=== PATIENT | female | born 1960 | race Caucasian/White ===

== ENCOUNTER → 2022-08-21 15:59 | Outpatient (BNVA) | payer BC, SELFPAY | PROVIDERS: PCP Internal Medicine; Visit Provider Nurse Practitioner Family | DX: Z13.89 Encounter for screening for other disorder (principal) ==

== ENCOUNTER → 2022-09-12 11:07 | Outpatient (BNVA) | payer BC, SELFPAY | PROVIDERS: PCP Internal Medicine; Visit Provider Nurse Practitioner Family ==

== ENCOUNTER 2022-10-05 13:02 | Outpatient (REF) | payer BC, SELFPAY ==
--- NOTE | ~2022-10-05 | MR_ITS ---
EXAMINATION: MR LUMBAR SPINE WITHOUT CONTRAST CLINICAL INFORMATION: Low back pain. COMPARISON: Abdominal CT from 07/12/2015. TECHNIQUE: Multiplanar, multisequence imaging was obtained. FINDINGS: VERTEBRAL BODIES AND PARASPINAL STRUCTURES: There is a ffuv-tl-gvbroaoa leftward curvature of the spine centered at the L1-L2 level with mild posterior endplate edema. A grade 1/2 anterolisthesis at the L4-L5 level with fdkf-ni-figgqfgp disc space narrowing is similar when compared to the 06/2015 CT study. No compression fractures identified. Mild left lateral endplate edema noted at the L4-L5 and L5-S1 levels. Additional very mild reactive marrow edema in the posterior elements on the left side at both levels. There is mild edema in the right L2-L3 articular processes which may be stress related in etiology. The paraspinal soft tissues are unremarkable. CONUS MEDULLARIS AND CAUDA EQUINE: The distal cord, conus tip, and cauda equina nerve roots appear normal. SPINAL LEVELS: L1-L2: Mild retrosubluxation and disc bulge with mild facet arthropathy. No central canal stenosis. Bulging disc and osseous spurring results in significant right foraminal encroachment with bulging disc impressing upon the extraforaminal right L1 nerve root. L2-L3: Broad-based disc bulge and hypertrophic facet arthropathy with thickening of the ligamentum flavum. No significant central canal stenosis. Lateralized bulging disc and facet spurring results in significant right foraminal encroachment. Edema in the right articular processes. L3-L4: Disc bulge and gnfsobzo-gw-ailluh facet arthropathy without significant central canal stenosis. Mild right foraminal narrowing. L4-L5: Anterior subluxation and loss of disc height with advanced facet arthropathy resulting in high-grade central canal stenosis and thecal sac compression. Mild bilateral foraminal narrowing. Suspected bilateral L4 pars defects. L5-S1: Mild endplate spurring. No focal disc protrusion. Severe facet arthropathy without central canal stenosis or foraminal narrowing. MR/MR lumbar spine wo con IMPRESSION: 1. Dpku-fh-hbmlxdlq leftward lumbar spinal curvature with multilevel spondylitic changes. No compression fractures. 2. Severe right foraminal narrowing at the L1-L2 level with bulging disc impressing upon the extraforaminal right L1 nerve root. 3. Severe right foraminal encroachment at the L2-L3 level with reactive marrow edema in the right articular processes. 4. Grade 1/2 anterolisthesis at L4-L5 with advanced facet arthropathy and high-grade central canal stenosis. Suspected chronic bilateral L4 pars defects. 5. Severe facet arthropathy without foraminal encroachment at the L5-S1 level.
== END 2022-10-05 13:03 | disposition home or self-care (01) ==
LOC: HO.MRI 13:02
PROVIDERS: PCP Internal Medicine; Visit Provider Nurse Practitioner Family
DX: M54.50 Low back pain, unspecified (principal); G57.11 Meralgia paresthetica, right lower limb; R29.2 Abnormal reflex
CPT/HCPCS: 72148

== ENCOUNTER 2022-10-25 08:39 | Outpatient (REF) | payer BC, SELFPAY | END 2022-10-25 08:40 | disposition home or self-care (01) | LOC: CF 08:39 | PROVIDERS: Visit Provider Internal Medicine | DX: G57.11 Meralgia paresthetica, right lower limb (principal) | CPT/HCPCS: 64450; J1020 ==

== ENCOUNTER 2022-10-27 10:40 | Outpatient (REF) | payer BC, SELFPAY ==
--- NOTE | ~2022-10-27 | XR_ITS ---
EXAMINATION: XR BILATERAL HIPS WITH AP PELVIS CLINICAL INFORMATION: Reason for Exam M48.061 - Spinal stenosis, lumbar region without neurogenic claudication COMPARISON: None TECHNIQUE: Two views of each hip. One view of the pelvis. FINDINGS: No acute fracture or dislocation. Hip and sacroiliac joint spaces are maintained. Moderate degenerative changes of the pubic symphysis. Soft tissues are unremarkable. XR/XR hip BI w PEL1V IMPRESSION: 1. No acute osseous abnormality. 2. Moderate degenerative changes of the pubic symphysis.
== END 2022-10-27 10:41 | disposition home or self-care (01) ==
LOC: HO.XRAY 10:40
PROVIDERS: PCP Internal Medicine; Visit Provider Nurse Practitioner Family
DX: M06.9 Rheumatoid arthritis, unspecified (principal); M25.551 Pain in right hip; M47.26 Other spondylosis with radiculopathy, lumbar region; M48.061 Spinal stenosis, lumbar region without neurogenic claudication; M62.838 Other muscle spasm; M43.16 Spondylolisthesis, lumbar region
CPT/HCPCS: 73521

== ENCOUNTER 2024-04-22 11:08 | Outpatient (AMB) | payer MEDICARE, SELFPAY ==
[2024-04-22 11:20] VITALS: BP 120/72; PULSE 73; O2SAT 99; BMI 35.8
--- NOTE | 2024-04-22 11:20 | A.OFFVIS_ITS ---
Vital Signs 04/22/24 11:20 Height 5 ft 0.5 in Weight 186 lb 4.65 oz BMI 35.8 BP 120/72 Blood Pressure Location Lt brachial Position Sitting Pulse 73 Pulse Source Pulse Oximeter Pulse Oximetry (%) 99 Oxygen Delivery Method Room Air Intake Visit Reasons: arthritis Intake Note: Patient presents today for follow up on rheumatoid arthritis. She states both hands are hurting, mainly her right one. Allergies No Known Allergies Allergy (Verified 04/22/24 11:29) HPI HPI arthritis: Details: She has swelling and stiffness in her hands. No recent infections. She is taking methotrexate 30 mg once weekly and folic acid 1 mg daily. No side effects. PENDING SALE TO [facility] Medical History (Updated 04/23/24 @ 21:35 by Konstantin Chin MD) Restless leg syndrome Neural foraminal stenosis of lumbar spine Lumbar spondylosis Asthma HLD (hyperlipidemia) HTN (hypertension) Surgical History History of section History of knee replacement History of toe surgery Hx of cataract surgery Hx of rotator cuff surgery Family History Father Diabetes Hypertension Mother Diabetes Hypertension Disorder of circulatory system Brother Disorder of circulatory system Social History Alcohol intake: current Alcohol intake frequency: a few times a month Patient Tobacco Use Status: Former Tobacco user Substance Use Type: Marijuana Review of Systems Const All systems reviewed & are unremarkable except as noted in HPI and below Physical Exam Vital Signs: Last Vital Signs Pulse 73 04/22/24 11:20 BP 120/72 04/22/24 11:20 Pulse Ox 99 04/22/24 11:20 Oxygen Delivery Method Room Air 04/22/24 11:20 BMI result Body Mass Index 35.8 Const Other: General: Comfortable CVS: RRR Respiratory: clear to auscultation bilaterally. Good respiratory effort Skin: No lesions seen MSK: Tender to palpate bilateral MCPs and PIP. Volar subluxation bilateral MCPs. She has synovitis of right 2nd and 3rd MCP and left 2nd MCP. Tender bilateral PIP knees. Tender bilateral wrists. Good range of motion of upper extremities. Good range of motion of lower extremities. Tender bilateral MTPs. Assessment & Plan Assessment & Plan (1) Rheumatoid arthritis: Comment: Seronegative. Deforming. Methotrexate started 12/2021. She is currently on methotrexate 30 mg once weekly without control liver disease. She is at increased risk of side effects on high dose methotrexate. I recommended to decrease methotrexate dose of 25 mg once weekly. We discussed add on DMARD therapy with hydroxychloroquine. Discussed side effects, benefits and drug monitoring. After lab results are back, I will send prescription for hydroxychloroquine 400 mg daily. Code(s): M06.9 - Rheumatoid arthritis, unspecified Category: Medical Qualifiers: Rheumatoid arthritis location: multiple sites Rheumatoid factor presence: without rheumatoid factor Qualified Code(s): M06.09 - Rheumatoid arthritis without rheumatoid factor, multiple sites Plan: Labs for drug monitoring and high-risk medication ordered Decrease methotrexate to 25 mg once weekly Continue folic acid 1 mg daily After lab results are back, we will send prescription for hydroxychloroquine 400 mg daily Prednisone course prescribed Return to clinic in 3 months Orders: Orders Erythrocyte Sedimentation Rate 04/22/24 M06.9 - Rheumatoid arthritis, unspecified C Reactive Protein 04/22/24 M06.9 - Rheumatoid arthritis, unspecified Complete Blood Count Auto Diff 04/22/24 Z79.60 - terminal makeup operator (current) use of un specified immunomodulators and immunosuppressants Creatinine 04/22/24 Z79.60 - terminal makeup operator (current) use of unspecified immunomodulators and immunosuppressants Hepatitis B,C Profile 04/22/24 M06.9 - Rheumatoid arthritis, unspecified Alanine Aminotransferase 04/22/24 Z79.60 - residential (current) use of unspecified immunomodulators and immunosuppressants Aspartate Amino Transferase 04/22/24 Z79.60 - terminal makeup operator (current) use of unspecified immunomodulators and immunosuppressants T Spot TB 04/22/24 M06.9 - Rheumatoid arthritis, unspecified Medications: New prednisone Take 4 tablets daily 5 days, 3 tablets daily 5 days, 2 tablets daily 5 days, 1 tablet daily 5 days then stop. Take prednisone with food 5 mg PO DIRECTED 50 tabs 0RF folic acid 1 mg PO DAILY 90 tabs 3RF Coding Level of Care Code Est Pt Level 4 (86358) Complex EM visit Add On G2211 Diagnoses Rheumatoid arthritis of multiple sites with negative rheumatoid factor M06.09 Rheumatoid arthritis location: multiple sites Rheumatoid factor presence: without rheumatoid factor
== END 2024-04-22 12:27 | disposition home or self-care (01) ==
PROVIDERS: PCP Internal Medicine; Visit Provider Internal Medicine Rheumatology
DX: M06.09 Rheumatoid arthritis without rheumatoid factor, multiple sites (principal)
CPT/HCPCS: 99214; G2211

== ENCOUNTER 2024-04-22 11:08 | Outpatient (REF) | payer MEDICARE, SELFPAY ==
--- OUTSIDE RECORDS SUMMARY | 2024-04-22 12:52 | XMS_ITS ---
Author Name [facility] Organization Unknown History of Medication Use Medication Directions Dispensed Refills Start Date End Date Stat iohexol (OMNIPAQUE) 350 mg/mL injection 100 mL 100 mL, Intravenous, Once in imaging, contrast, Starting on 04/14/24 at 0937, For 1 dose, Radiology Appointment 04/17/2024 04/22/99 99 completed venlafaxine (EFFEXOR-XR) 75 MG 24 hr capsule Take 1 capsule (75 mg total) by mouth daily. 03/29/2024 04/22/99 99 active dicyclomine (BENTYL) 20 MG tablet Take 0.5 tablets (10 mg total) by mouth 4 (four) times a day. 03/29/2024 04/22/99 99 active phentermine 37.5 MG capsule Take 1 capsule (37.5 mg total) by mouth every morning. 03/29/2024 04/22/99 99 active hydrocortisone (ANUSOL-HC) 2.5 % rectal cream Insert into the rectum 3 (three) times a day as needed for hemorrhoids. 03/29/2024 04/22/99 99 active lisinopril-hydroCHLOROt hiazide (PRINZIDE,ZESTORETIC) 20-12.5 MG per tablet Take 1 tablet by mouth daily. 01/28/2024 active PEG 1617-NBv-SbNn-NaSulf-Mg Sul (Suflave) 178.7 g Recon Soln Take 1 Box by mouth once. Take as instructed. 01/14/2024 active rOPINIRole (REQUIP) 4 MG tablet Take 1 tablet (4 mg total) by mouth nightly. 01/11/2024 active gabapentin (NEURONTIN) 100 MG capsule Take 1 cap at 6pm and increase as needed and tolerated. 10/24/2023 active gabapentin (NEURONTIN) 300 MG capsule Take 1 capsule (300 mg total) by mouth nightly. 09/26/2023 active gabapentin (NEURONTIN) 100 MG capsule Take 3 capsules (300 mg total) by mouth every evening. 08/08/2023 active Botox 100 units Recon Soln injection Every 5 months 01/27/2023 active Methotrexate 10 MG/0.4ML Solution Prefilled Syringe 01/27/2023 active rOPINIRole (REQUIP) 2 MG tablet 01/27/2023 active doxycycline (VIBRA-TABS) 100 MG tablet 01/27/2023 active lisinopril-hydroCHLOROt hiazide (PRINZIDE,ZESTORETIC) 20-12.5 MG per tablet nightly. 11/12/2022 act edil oxyCODONE (ROXICODONE) 5 MG immediate release tablet Take 1 tablet (5 mg total) by mouth 4 times daily (every 6 hours) as needed for moderate pain. Max Daily Amount: 20 mg 05/06/2023 active rOPINIRole (REQUIP) 4 MG tablet nightly. 11/12/2022 active minocycline (MINOCIN) 100 MG capsule Take 1 capsule (100 mg total) by mouth 2 (two) times a day. Take 1 capsule by mouth 2 (two) times a day for 10 days until gone. 05/19/2023 active Ozempic, 2 MG/DOSE, 8 MG/3ML prefilled pen injection 11/12/2022 aborted oxyCODONE (OXY-IR) 5 MG capsule TAKE 1 CAPSULE BY MOUTH EVERY 6 HOURS NEEDED FOR PAIN 01/27/2023 active rOPINIRole (REQUIP) 4 MG tablet nightly. 11/12/2022 active minocycline (MINOCIN) 100 MG capsule Take 1 capsule (100 mg total) by mouth 2 (two) times a day. Take 1 capsule by mouth 2 (two) times a day for 10 days until gone. 05/19/2023 active terbinafine (LamiSIL) 250 MG tablet Take 1 tablet (250 mg total) by mouth daily. 06/30/2023 active senna-docusate (SENNA-S) 8.6-50 MG Take 2 tablets by mouth 2 (two) times a day. 05/06/2023 active aspirin (Aspirin 81) 81 MG chewable tablet Chew 1 tablet (81 mg total) nightly. Not prescribed by an MD Do not start before April 23, 2023. 05/06/2023 active methylPREDNISolone (MEDROL DOSEPAK) 4 MG tablet 01/27/2023 active Wegovy 2.4 MG/0.75ML Solution Auto-injector 11/12/2022 ac tive tirzepatide (MOUNJARO) 2.5 mg/0.5 mL pen-injector Inject 1 pen(s) (2.5 mg total) under the skin once a week. 06/12/2023 aborted METHOTREXATE SODIUM PO 12 mg 04/20/2023 active predniSONE (DELTASONE) 5 MG tablet 06/30/2023 aborted folic acid (FOLVITE) 1 MG tablet 11/12/2022 active methotrexate 2.5 MG tablet 11/12/2022 active methocarbamol (ROBAXIN) 750 MG tablet 01/27/2023 active aspirin (Aspirin 81) 81 MG chewable tablet nightly. Not prescribed by an MD 11/12/2022 active venlafaxine (EFFEXOR-XR) 75 MG 24 hr capsule nightly. 11/12/2022 active cephALEXin (KEFLEX) 250 mg capsule nightly. 01/27/2023 active Problems Problem Status Onset Date Problem Type Date of Resolution Source Sleep apnea active ProblemAct [facility] Family history of colonic polyps active 2024-01-11 ProblemAct [facility] BMI 39.0-39.9,adult active 2022-11-10 ProblemAct [facility] Spondylolisthesis, grade 1 active 2022-12-19 ProblemAct [facility] Severe obesity active 2024-01-10 ProblemAct [facility] History of colon polyps active 2024-01-11 ProblemAct [facility] Generalized abdominal pain active EncounterDiagnosisAct [facility] Postoperative seroma involving nervous system after nervous system procedure active 2023-05-17 ProblemAct [facility] BMI 40.0-44.9, adult active 2023-05-04 ProblemAct [facility] Spinal stenosis of lumbar region with neurogenic claudication active 2022-11-10 ProblemAct [facility] Chronic bilateral low back pain with right-sided sciatica active 2022-11-10 ProblemAct [facility] Restless leg syndrome active ProblemAct [facility] BMI 38.0-38.9,adult active 2022-12-19 ProblemAct [facility] Immunizations Vaccine Date Source Lot Number Status Tdap [id number] completed Influenza, Quadrivalent (FLU CELVAX) MDCK, Preservative Free IM 01/05/2023 [facility] [id number] completed
--- OUTSIDE RECORDS SUMMARY | 2024-04-22 12:52 | XMS_ITS | Continuity of Care Document ---
Author Organization [facility] vices Address [address] [place] [address] Phone Care Team Providers Care Client Experience Specialist Name Role Phone Shantel Blanton RD Unavailable [...] Diagnoses Date Provider Providers Copied on Encounter [facility], [address] [place] [address], [facility] [place], tel:[phone] [facility] Adult Medicine Prep for Bariatric Surgery (chief complaint) Body mass index (BMI) 40.0-44.9, adultMorbid (severe) obesity due to excess caloriesDietary counseling and surveillanceExercise counseling 3 Osbaldovar Shantel. [address] [place] [address], [id number] [address] [place] [address], [facility] [place], [place]. tel:[phone] [facility], [address] [place] [address], tel:[phone] [facility] Adult Medicine Prep for Bariatric Surgery (chief complaint) Dietary counseling and surveillanceExercise counselingObesityBod y mass index [BMI] 38.0-38.9, adult 3 Pevar Shantel. [address] [facility] [id number] [address], [place], [facility] [place], [place]. tel:[phone] Family History Family Member Type Diagnosis Age At Onset No Information Payers Payer name Insurance type Covered democrat ID Authorlena vega(s) BCBS Elia Mari DSNP [facility] [id number] Social History Type Description Quantity Date [...] low carb w rapsD: last night had belarusian food, beef low mein craves sugar often, large portions recently at mealsFoods high in added sugarscandy bars Drinking inadequate water Joelle Donuts, candy Normally gets sweets and snacks on the road when hungry or gets high sugar snacks from grocery store when hungry Patient Care Teams Name Effective Dates (start - stop) Status Members No Information
--- OUTSIDE RECORDS SUMMARY | 2024-04-22 12:52 | XMS_ITS | Continuity of Care Document ---
Author Organization [facility] Address [address] [facility] [address] [place] [phone] Phone Care Team Providers Care Roll Builder Name Role Phone Dariusz Baptiste MD Unavailable Unavailable Procedures Procedure Date Office/Oupt E&M New Pt 30 Mins Duplex Scan-extrem Veins; Comp 24 Advance Directives Directive Yes / No Effective Date File Name No Information Encounters Encounter Description Practice Location Reason(s) For Visit Diagnoses Date Provider Providers Copied on Encounter Office/Oupt E&M New Pt 30 Mins [facility], [address] [place] [address], [id number], tel:[phone] [place] [facility] [place] Pain in right lower legPain in left lower legLocalized edemaVenous insufficiency (chronic) (peripheral)Essent ial (primary) hypertensionDisord er of pigmentation, unspecified 4 Oliva Arzola. [address] [place], [address], [place]. [phone] Referring Provider: Yakov Holm MD, [address] [place] [address], [address]. tel:[phone] [facility], [address] [place] [address], [id number], tel:[phone] [facility] [place] Chronic venous hypertension (idiopathic) with other complications of bilateral lower extremity Bev CHRISTOPHER Walter. [address] [facility], [address], [place], [place], [id number] , [place]. tel: [phone] Referring Provider: Yakov Holm MD, [address] [place], [address]. tel:[phone] Family History Family Member Type Diagnosis Age At Onset No Information Payers Payer name Insurance type Covered constitution party ID Carolina Rodrigez (s) [place] BL [id number] Social History Type Description Quantity Date Captured [...] Information Instructions Date Instruction Additional Infor mation Diet education Related to Body mass index (BMI) 40.0-44.9, adult Giving Encouragement to exercise Related to Body mass index (BMI) 40.0-44.9, adult Lifestyle education Related to B brandon mass index (BMI) 40.0-44.9, adult Patient education booklet given Related to Pain in right lower leg Assessments Type Assessment Date No Information Patient Care Teams Name Effective Dates (start - stop) Status Members No Information
[2024-04-22 12:59] LABS: MANUAL DIFF FLAG NO
[2024-04-22 13:48] LABS: Basophils Percent Auto 0.6 % (0-2); Eosinophils Absolute Auto 0.2 X10*3/uL (0.0-0.4); Eosinophils Percent Auto 2.7 % (0-4); Hematocrit 39.6 % (37.0-47.0); Imm Gran Abs Auto 0.03 X10*3/uL (0.00-0.03); Imm Gran Pct Auto 0.5 % (0.0-0.4); Lymphocytes Absolute Auto 1.9 X10*3/uL (1.2-4.9); Lymphocytes Percent Auto 29.8 % (20-40); Mean Corpuscular HGB Conc 32.8 g/dl (31.0-35.0); Mean Corpuscular Hemoglobin 31.6 pg (27.0-33.0); Mean Corpuscular Volume 96.1 fL (80.0-98.0); Mean Platelet Volume 10.5 fL (9.4-12.3); Monocytes Absolute Auto 0.4 X10*3/uL (0.1-1.2); Monocytes Percent Auto 6.1 % (2-11); Neutrophils Absolute Auto 3.8 x10*3/uL (2.0-8.3); Neutrophils Percent Auto 60.3 % (45-73); Platelet Count 231 X10*3/uL (160-400); Red Blood Count 4.12 X10*6/uL (4.20-5.50); Red Cell Distribution Width 13.7 % (11.0-16.0); White Blood Count 6.2 X10*3/uL (4.8-10.8)
[2024-04-22 14:07] LABS: Alanine Aminotransferase 27 U/L (0-31); Aspartate Amino Transferase 29 U/L (5-31); C Reactive Protein 0.49 mg/dL (< or = 0.50); Estimated Glomerular Filt Rate > 60
[2024-04-22 14:28] LABS: Erythrocyte Sedimentation Rate 6 MM/HR (0-20)
[2024-04-23 04:10] LABS: HBc Num1 0.22 S/CO (0.00-0.79); HBsAGNum1 0.35 S/CO (0.00-0.99); Hepatitis B Core Antibody Nonreactive (Nonreactive); Hepatitis B Surface Antigen Negative (Negative); ~HepC Num1 0.05 S/CO (0.00-0.79); ~Hepatitis B Surface Antibody NONREACTIVE (Nonreactive); ~Hepatitis C Antibody Nonreactive (Nonreactive)
[2024-04-24 18:24] LABS: TS Negative Control Passed; TS Panel A 0; TS Panel B 0; TS Positive Control Passed; TSpotTB Negative (Negative)
== END 2024-04-22 11:09 | disposition home or self-care (01) ==
LOC: HO.LAB 11:08
PROVIDERS: Visit Provider Internal Medicine Rheumatology
DX: M06.09 Rheumatoid arthritis without rheumatoid factor, multiple sites (principal); Z79.60 Long term (current) use of unspecified immunomodulators and immunosuppressants
CPT/HCPCS: 36415; 82565; 84450; 84460; 85025; 85652; 86140; 86481; 86704; 86706; 86803; 87340; 99212

== ENCOUNTER → 2024-05-14 15:12 | Outpatient (BNVA) | payer MEDICARE, SELFPAY | DX: Z13.89 Encounter for screening for other disorder (principal) ==

== ENCOUNTER → 2024-05-21 13:25 | Outpatient (BNVA) | payer MEDICARE, SELFPAY | PROVIDERS: Visit Provider Internal Medicine Rheumatology ==

== ENCOUNTER 2024-06-26 14:34 | Outpatient (AMB) | payer MEDICARE, SELFPAY ==
--- NOTE | 2024-06-26 14:38 | MHC.OFFVIS ---
Vital Signs 06/26/24 14:39 Height 5 ft Weight 193 lb 5.526 oz BMI 37.8 BP 110/72 Blood Pressure Location Rt brachial Position Standing Pulse 83 Pulse Source Pulse Oximeter Pulse Oximetry (%) 98 Oxygen Delivery Method Room Air Intake Visit Reasons: follow up Intake Note: Patient presents today for follow up on rheumatoid arthritis Allergies No Known Allergies Allergy (Verified 06/26/24 14:39) HPI HPI follow up: Details: He started hydroxychloroquine 2 months ago. She gained 10 lb on prednisone course. She has had relief on prednisone but is not keen on receiving more prednisone. She prefers subcutaneous injection over p.o. methotrexate. She has been wearing wrist braces at night but continues to have paresthesia in her hands. [facility] Medical History Restless leg syndrome Neural foraminal stenosis of lumbar spine Lumbar spondylosis Asthma HLD (hyperlipidemia) HTN (hypertension) Surgical History History of section History of toe surgery Hx of cataract surgery History of knee replacement Hx of rotator cuff surgery Family History Father Diabetes Hypertension Mother Diabetes Hypertension Disorder of circulatory system Brother Disorder of circulatory system Social History Alcohol intake: current Alcohol intake frequency: a few times a month Patient Tobacco Use Status: Former Tobacco user Substance Use Type: Marijuana Review of Systems Const All systems reviewed & are unremarkable except as noted in HPI and below Physical Exam Vital Signs: Last Vital Signs Pulse 83 06/26/24 14:39 BP 110/72 06/26/24 14:39 Pulse Ox 98 06/26/24 14:39 Oxygen Delivery Method Room Air 06/26/24 14:39 BMI result Body Mass Index 37.8 Const Other: General: Comfortable CVS: RRR Respiratory: clear to auscultation bilaterally. Good respiratory effort Skin: No lesions seen MSK: Tender to palpate bilateral MCPs and PIPs. Volar subluxation bilateral MCPs. She has synovitis of bilateral 2nd and 3rd MCPs. Tender bilateral PIPs. Tender bilateral wrists. Good range of motion of upper extremities. Good range of motion of lower extremities. Tender bilateral MTPs. Assessment & Plan Assessment & Plan (1) Rheumatoid arthritis: Comment: She continues to have synovitis with addition of hydroxychloroquine. She has been on hydroxychloroquine for at least a month. She needs more time for full effectiveness. Rheumatology history: Seronegative. Deforming. Methotrexate started 12/2021. Dr. Ross increase dose to 30 mg once weekly without control of rheumatoid arthritis. 03/2024. HCQ 400 mg qd 03/2024-. Code(s): M06.9 - Rheumatoid arthritis, unspecified Category: Medical Qualifiers: Rheumatoid arthritis location: multiple sites Rheumatoid factor presence: without rheumatoid factor Qualified Code(s): M06.09 - Rheumatoid arthritis without rheumatoid factor, multiple sites Plan: Labs for drug monitoring and high-risk medication ordered Continue methotrexate to 25 mg once weekly. It will temporarily be changed from PO to subcutaneous injection as current dosing is not available for PA under cover my meds. I have sent prescription to [facility] to [place] PA for Rasuvo. Continue folic acid 1 mg daily Continue hydroxychloroquine 400 mg daily Patient will need 90 day supply of hydroxychloroquine, folic acid and methotrexate due to travel Continue Tylenol as needed for joint pain She can take Aleve as needed for joint pain. I will be monitoring toxicity from methotrexate closely with regular labs and follow-up. Return to clinic in 3 months Orders: Orders Creatinine Today Z79.60 - intermediate (current) use of unspecified immunomodulators and immunosuppressants Alanine Aminotransferase Today Z79.60 - intermediate (current) use of unspecified immunomodulators and immunosuppressants Aspartate Amino Transferase Today Z79.60 - intermediate (current) use of unspecified immunomodulators and immunosuppressants Erythrocyte Sedimentation Rate Today Z79.899 - Other moth exterminator (current) drug therapy Complete Blood Count Auto Diff Today Z79.60 - long term care administrator (current) use of unspecified immunomodulators and immunosuppressants C Reactive Protein Today Z79.899 - Other senior living (current) drug therapy Medications: New methotrexate (PF) (Rasuvo (PF)) PA needed. 25 mg (0.5 mL) subcut QWEEK 6 mL 0RF 84 days methotrexate sodium Split dose 5 tablets AM and PM once a week 25 mg (10 x 2.5 mg) PO QWEEK 120 tabs 0RF 84 days Changed From methotrexate sodium 25 mg subcut QWEEK 4 mL 2RF To methotrexate sodium 25 mg subcut QWEEK 12 mL 0RF 84 days Refilled hydroxychloroquine 400 mg (2 x 200 mg) PO DAILY 180 tabs 1RF Coding Level of Care Code Est Pt Level 4 (69789) Complex EM visit Add On G2211 Diagnoses Rheumatoid arthritis of multiple sites with negative rheumatoid factor M06.09 Rheumatoid arthritis location: multiple sites Rheumatoid factor presence: without rheumatoid factor
[2024-06-26 14:39] VITALS: BP 110/72; PULSE 83; O2SAT 98; BMI 37.8
--- OUTSIDE RECORDS SUMMARY | 2024-06-26 17:56 | XMS_ITS | Encounter Summary ---
Author Organization [facility] Address [address] [place] [address] Care Team Providers Care Merchandising Stock Associate Name Role Phone Jason Erwin Primary Care Provider [phone] Jason Seth MD Primary Care Provider [phone] Yakov Holm MD Primary Care Provider [phone] Chiqui Pena DO Unavailable [phone] Yakov Holm MD Unavailable [phone] Reason for Visit * Reason Comments Appointment Encounter Details Date Type Department Care Team (Late st Contact Info) Description 04/12/2023 Telephone [facility] [address] [place] [address] Jason Erwin [address] [place], [place] Appointment Social History Tobacco Use Types Packs/Day Years Used Date Smoking Tobacco: Former Cigarettes 6 1985 Smokeless Tobacco: Never Alcohol Use Standard Drinks/Week Comments Yes 0 (1 standard drink = 0.6 oz pur e alcohol) 1-2 times weekly 1-2 glasses AUDIT-C Answer Date Recorded Q1: How often do you have a drink containing alc ohol? 2-4 times a month 04/04/2023 Q2: How many drinks containi ng alcohol do you have on a typical day when you are drinking? 1 or 2 04/04/2023 Q3: How often do you have si x or more drinks on one occasion? Never 04/04/2023 Sex and Gender Information Value Date Recorded Sex Assigned at Female 11/01/2022 11:18 AM EDT Gender Identity Female 11/01/2022 11:18 AM EDT Sexual Orientation Heterosexual (straight) 11/01 11:18 AM EDT documented as of this encounter Miscellaneous Notes * Telephone Encounter - Giovany Deras - 04/12/2023 5:13 PM EST Patient made needed appointment documented in this encounter Plan of Treatment Upcoming Encounters Date Type Department Care Team (Late st Contact Info) Description 07/03/2024 5:00 PM EDT Office Visit [address] [phone] [place] [address] [place] [address] 10/03/2024 1:00 PM EDT Office Visit [address] [phone] Yakov Holm MD [facility] [place], [place] [phone] documented as of this encounter Visit Diagnoses Not on filedocumented in this encounter Care Teams Merchandising Stock Associate Relationship Specialty Start Date End Date Jason Erwin [address] [place] [address] PCP - General Internal Medicine 12/12/22 04/18/23 Jason Seth MD [address] [address] PCP - General 04/19/23 05/31/23 Yakov Holm MD [address] [place] [address] PCP - General Internal Medicine 06/01/23 Yakov Holm MD [address] [place] [address] PCP - [place] Commercial Attributed 06/22/23 11/21/23 Chiqui Pena DO [address] [place] [address] Obstetrics and Gynecology 09/05/23 documented as of this encounter
--- OUTSIDE RECORDS SUMMARY | 2024-06-26 17:56 | XMS_ITS | Encounter Summary ---
Author Organization [facility] Address [address] [place] [address] Care Team Providers Care Lead Warehouse Associate Name Role Phone Yakov Holm MD Primary Care Provider [phone] Chiqui Pena DO Unavailable [phone] Yakov Holm MD Unavailable Encounter Details Date Type Department Care Team (Late st Contact Info) Description 11/14/2023 Scanned Document [facility] [address] [facility] [address] [place] [phone] Clau Zavala APRN [address] [facility] [address] [place] [address] Social History Tobacco Use Types Packs/Day Years [...] more drinks on one occasion? Never 04/04/2023 PHQ-2 Answer Date Recorded PHQ-2 Total Score 0 06/01/2023 Sex and Gender Information Value Date Recorded Sex Assigned at Female 11/01/2022 11:18 AM EDT Gender Identity Female 11/01/2022 11:18 AM EDT Sexual Orientation Heterosexual (straight) 11/01 11:18 AM EDT documented as of this encounter Plan of Treatment Upcoming Encounters Date Type Department Care Team (Late st Contact Info) Description 07/03/2024 5:00 PM EDT Office Visit [facility] [address] [place] [address] Yakov Holm MD [address] [place] [address] 10/03/2024 1:00 PM EDT Office Visit [facility] [address] [place] [phone] Yakov Holm MD [address] [place] [address] documented as of this encounter Visit Diagnoses Not on filedocumented in this encounter Care Teams Lead Warehouse Associate Relationship Specialty [place] [address] [place] [address] PCP - General Internal Medicine 06/01/23 [place] [address] [place] [address] PCP - [place] Commercial Attributed 06/22/23 11/21/23 Chiqui Pena DO [address] [place] [address] Obstetrics and Gynecology 09/05/23 documented as of this encounter
--- OUTSIDE RECORDS SUMMARY | 2024-06-26 17:56 | XMS_ITS | Encounter Summary ---
Author Organization [facility] Address [address] [place] [address] Care Team Providers Care Electronic Installer Name Role Phone Yakov Holm MD Primary Care Provider [phone] Chiqui Pena DO Unavailable [phone] Yakov Holm MD Unavailable [phone] Encounter Details Date Type Department Care Team (Late st Contact Info) Description 11/14/2023 Scanned Document [facility] [address] [facility] [address] [place] [phone] Clau Zavala APRN [address] [facility] [address] [place] [address] Social History Tobacco Use Types Packs/Day Years [...] Description 07/03/2024 5:00 PM EDT Office Visit [facility] [address] [place] [address] Yakov Holm MD [address] [place] [address] 10/03/2024 1:00 PM EDT Office Visit [facility] [address] [place] [phone] Yakov Holm MD [address] [place] [address] documented as of this encounter Visit Diagnoses Not on filedocumented in this encounter Care Teams Electronic Installer Relationship Specialty [place] [address] [place] [address] PCP - General Internal Medicine 06/01/23 [place] [address] [place] [address] PCP - [place] Commercial Attributed 06/22/23 11/21/23 Chiqui Pena DO [address] [place] [address] Obstetrics and Gynecology 09/05/23 documented as of this encounter
--- OUTSIDE RECORDS SUMMARY | 2024-06-26 17:56 | XMS_ITS | Encounter Summary ---
Author Organization [facility] Address [address] [place] [address] Care Team Providers Care Car Dumper Name Role Phone Yakov Holm MD Primary Care Provider [phone] Chiqui Pena DO Unavailable [phone] Yakov Holm MD Unavailable [phone] Encounter Details Date Type Department Care Team (Late st Contact Info) Description 07/10/2023 Scanned Document [facility] [place] [address] [place] [phone] Pulmonary, Scan Social History Tobacco Use Types Packs/Day Years [...] Description 07/03/2024 5:00 PM EDT Office Visit [facility] [address] [place] [phone] [place] [address] [place] [address] 10/03/2024 1:00 PM EDT Office Visit [facility] [address] [place] [address], [place] [phone] Yakov Holm MD [address] [place] [address] documented as of this encounter Visit Diagnoses Not on filedocumented in this encounter Care Teams Car Dumper Relationship Specialty Start Date End Date Yakov Holm MD [address] [place] [address] PCP - General Internal Medicine 06/01/23 Yakov Holm MD [address] [place] [address] PCP - [place] Commercial Attributed 06/22/23 11/21/23 Chiqui Pena DO [address] [place] [address] Obstetrics and Gynecology 09/05/23 documented as of this encounter
--- OUTSIDE RECORDS SUMMARY | 2024-06-26 17:56 | XMS_ITS | Encounter Summary ---
Author Organization [facility] Address [address] [place] [address] Care Team Providers Care Engineering Test Mechanic Name Role Phone Yakov Holm MD Primary Care Provider [phone] Chiqui Pena DO Unavailable [phone] Yakov Holm MD Unavailable Encounter Details Date Type Department Care Team (Late st Contact Info) Description 06/21/2023 Scanned Document [facility] VASCULAR SURG SCAN Vascular Surgery, Scan Social History Tobacco Use Types Packs/Day Years Used Date Smoking Tobacco: Former Cigarettes 1 976 - 1985 Smokeless Tobacco: Never Alcohol Use Standard [...] 5:00 PM EDT Office Visit [facility] [address] [facility] [place] [address] Yakov Holm MD [address] [place] [address] 10/03/2024 1:00 PM EDT Office Visit [facility] [address] [facility] [place] [address] Yakov Holm MD [address] [place] [address] documented as of this encounter Visit Diagnoses Not on filedocumented in this encounter Care Teams Engineering Test Mechanic Relationship Specialty [place] [address] [place] [address] PCP - General Internal Medicine 06/01/23 [place] [address] [place] [address] PCP - [place] Commercial Attributed 06/22/23 11/21/23 Chiqui Pena DO [address] [place] [address] Obstetrics and Gynecology 09/05/23 documented as of this encounter
--- OUTSIDE RECORDS SUMMARY | 2024-06-26 17:56 | XMS_ITS | Encounter Summary ---
Author Organization [facility] Address [address] [place] [address] Care Team Providers Care Cherry Picker Operator Name Role Phone Yakov Holm MD Primary Care Provider [phone] Chiqui Pena DO Unavailable [phone] Yakov Holm MD Unavailable [phone] Encounter Details Date Type Department Care Team (Late st Contact Info) Description 07/04/2023 Scanned Document [facility] PRIMARY CARE SCAN Primary Care, Scan Social History Tobacco Use Types Packs/Day [...] 5:00 PM EDT Office Visit [facility] [address] [place] [address] Yakov Holm MD [address] [place] [address] 10/03/2024 1:00 PM EDT Office Visit [facility] [address] [place] [address] Yakov Holm MD [address] [place] [address] documented as of this encounter Visit Diagnoses Not on filedocumented in this encounter Care Teams Cherry Picker Operator Relationship Specialty [place] [address] [place] [address] PCP - General Internal Medicine 06/01/23 [place] [address] [place] [address] PCP - [place] Commercial Attributed 06/22/23 11/21/23 Chiqui Pena DO [address] [place] [address] Obstetrics and Gynecology 09/05/23 documented as of this encounter
--- OUTSIDE RECORDS SUMMARY | 2024-06-26 17:56 | XMS_ITS | Encounter Summary ---
Author Organization [facility] Address [address] [place] [address] Care Team Providers Care Telemarketer Name Role Phone Yakov Holm MD Primary Care Provider [phone] Chiqui Pena DO Unavailable [phone] Encounter Details Date Type Department Care Team (Late st Contact Info) Description 2023 Scanned Document [address] [phone] Yakov Holm MD [address] [place] [address] Social History Tobacco Use Types Packs/Day Years [...] Description 07/03/2024 5:00 PM EDT Office Visit [facility] [address] [place] [phone] [place] [address] [place] [address] 10/03/2024 1:00 PM EDT Office Visit [address] [phone] Yakov Holm MD [address] [place] [address] documented as of this encounter Visit Diagnoses Not on filedocumented in this encounter Care Teams Telemarketer Relationship Specialty Start Date End Date Yakov Holm MD [address] [place] [address] PCP - General Internal Medicine 06/01/23 Chiqui Pena DO [address] [place] [address] Obstetrics and Gynecology 09/05/23 documented as of this encounter
--- OUTSIDE RECORDS SUMMARY | 2024-06-26 17:56 | XMS_ITS | Encounter Summary ---
Author Organization [facility] Address [address] [place] [address] Care Team Providers Care Marine Electrician Name Role Phone Yakov Holm MD Primary Care Provider [phone] Chiqui Pena DO Unavailable [phone] Yakov Holm MD Unavailable [phone] Encounter Details Date Type Department Care Team (Late st Contact Info) Description 07/16/2023 Scanned Document [facility] Pulmonary [place] [address] [place] [address] Zhang Vides, DO [address] [address] Social History Tobacco Use Types Packs/Day Years [...] Description 07/03/2024 5:00 PM EDT Office Visit [facility] [address] [place] [phone] Yakov Holm MD [address] [place] [address] 10/03/2024 1:00 PM EDT Office Visit [facility] [address] [place] [phone] Yakov Holm MD [address] [place] [address] documented as of this encounter Visit Diagnoses Not on filedocumented in this encounter Care Teams Marine Electrician Relationship Specialty Start Date End Date Yakov Holm MD [address] [place] [address] PCP - General Internal Medicine 06/01/23 Yakov Holm MD [address] [place] [address] PCP - [place] Commercial Attributed 06/22/23 11/21/23 Chiqui Pena DO [address] [place] [address] Obstetrics and Gynecology 09/05/23 documented as of this encounter
--- OUTSIDE RECORDS SUMMARY | 2024-06-26 17:56 | XMS_ITS | Encounter Summary ---
Author Organization [facility] Address [address] [place] [address] Care Team Providers Care Sample Sawyer Name Role Phone Yakov Holm MD Primary Care Provider [phone] Chiqui Pena DO Unavailable [phone] Encounter Details Date Type Department Care Team (Late st Contact Info) Description 05/19/2024 Scanned Document [facility] UROLOGY SCAN Urology, Scan Social History Tobacco Use Types Packs/Day Years Used Date Smoking Tobacco: Former Cigarettes 0 04/23/1975 - 04/23/1985 Smokeless Tobacco: Never Alcohol Use Standard Drinks/Week Comments Yes 2 (1 standard drink = 0.6 oz pur [...] Description 07/03/2024 5:00 PM EDT Office Visit [address] [place] [address] Yakov Holm MD [address] [place] [address] 10/03/2024 1:00 PM EDT Office Visit [facility] [address] [place] [address] Yakov Holm MD [address] [place] [address] documented as of this encounter Visit Diagnoses Not on filedocumented in this encounter Care Teams Sample Sawyer Relationship Specialty Start Date End Date Yakov Holm MD [address] [place] [address] PCP - General Internal Medicine 06/01/23 Chiqui Pena DO [address] [place] [address] Obstetrics and Gynecology 09/05/23 documented as of this encounter
--- OUTSIDE RECORDS SUMMARY | 2024-06-26 17:56 | XMS_ITS | Encounter Summary ---
Author Organization [facility] Address [address] [place] [address] Care Team Providers Care Plastic Battery Assembler Name Role Phone Jason Erwin Primary Care Provider [phone] Jason Seth MD Primary Care Provider [phone] Yakov Holm MD Primary Care Provider [phone] Chiqui Pena DO Unavailable [phone] Yakov Holm MD Unavailable [phone] Encounter Details Date Type Department Care Team (Late st Contact Info) Description 04/11/2023 Scanned Document [facility] NEUROSURGERY SCAN Neurosurgery, Scan Social History Tobacco Use Types Packs/Day [...] Description 07/03/2024 5:00 PM EDT Office Visit [facility] [address] [place] [phone] Yakov Holm MD [address] [place] [address] 10/03/2024 1:00 PM EDT Office Visit [facility] [address] [place] [phone] Yakov Holm MD [address] [place] [address] documented as of this encounter Visit Diagnoses Not on filedocumented in this encounter Care Teams Plastic Battery Assembler Relationship Specialty Start Date End Date Jason Erwin [address] PCP - General Internal Medicine 12/12/22 04/18/23 Jason Seth MD [address] [address] PCP - General 04/19/23 05/31/23 Yakov Holm MD [address] [place] [address] PCP - General Internal Medicine 06/01/23 Yakov Holm MD [address] [place] [address] PCP - [place] Commercial Attributed 06/22/23 11/21/23 Chiqui Pena DO [address] [place] [address] Obstetrics and Gynecology 09/05/23 documented as of this encounter
--- OUTSIDE RECORDS SUMMARY | 2024-06-26 17:56 | XMS_ITS | Encounter Summary ---
Author Organization [facility] Address [address] [place] [address] Care Team Providers Care Cube Machine Tender Name Role Phone Yakov Holm MD Primary Care Provider [phone] Chiqui Pena DO Unavailable [phone] Yakov Holm MD Unavailable [phone] Encounter Details Date Type Department Care Team (Late st Contact Info) Description 07/11/2023 Scanned Document [facility] [place] [address] [place] [address] Zhang Vides, DO [address] [address] Social History Tobacco Use Types Packs/Day Years [...] Description 07/03/2024 5:00 PM EDT Office Visit [facility] [address] [place] [phone] Yakov Holm MD [address] [place] [address] 10/03/2024 1:00 PM EDT Office Visit [facility] [address] [place] [phone] Yakov Holm MD [address] [place] [address] documented as of this encounter Visit Diagnoses Not on filedocumented in this encounter Care Teams Cube Machine Tender Relationship Specialty Start Date End Date Yakov Holm MD [address] [place] [address] PCP - General Internal Medicine 06/01/23 Yakov Holm MD [address] [place] [address] PCP - [place] Commercial Attributed 06/22/23 11/21/23 Chiqui Pena DO [address] [place] [address] Obstetrics and Gynecology 09/05/23 documented as of this encounter
--- OUTSIDE RECORDS SUMMARY | 2024-06-26 17:57 | XMS_ITS | Encounter Summary ---
Author Organization [facility] Address [address] [place] [address] Care Team Providers Care Engagement Manager Name Role Phone Yakov Holm MD Primary Care Provider [phone] Chiqui Pena DO Unavailable [phone] Encounter Details Date Type Department Care Team (Late st Contact Info) Description 06/11/2024 Scanned Document [facility] UROLOGY SCAN Urology, Scan Social History Tobacco [...] Description 07/03/2024 5:00 PM EDT Office Visit [address] [place] [address] Yakov Holm MD [address] [place] [address] 10/03/2024 1:00 PM EDT Office Visit [facility] [address] [place] [address] Yakov Holm MD [address] [place] [address] documented as of this encounter Visit Diagnoses Not on filedocumented in this encounter Care Teams Engagement Manager Relationship Specialty Start Date End Date Yakov Holm MD [address] [place] [address] PCP - General Internal Medicine 06/01/23 Chiqui Pena DO [address] [place] [address] Obstetrics and Gynecology 09/05/23 documented as of this encounter
--- OUTSIDE RECORDS SUMMARY | 2024-06-26 17:57 | XMS_ITS | Encounter Summary ---
Author Organization [facility] Address [address] [place] [address] Care Team Providers Care Cloth Stretcher Name Role Phone Yakov Holm MD Primary Care Provider [phone] Chiqui Pena DO Unavailable [phone] Encounter Details Date Type Department Care Team (Late st Contact Info) Description 01/25/[address] [facility] [address] [facility] [address] [place] [phone] Kelli Costello MD [address] [place], [place] [phone] Social History Tobacco Use Types Packs/Day Years [...] 07/03/2024 5:00 PM EDT Office Visit [facility] [address] [place] [phone] [place] [address] [place] [address] 10/03/2024 1:00 PM EDT Office Visit [facility] [address] [place] [phone] [place] [address] [place] [address] documented as of this encounter Procedures Procedure Name Priority Date/Time Associated Diagnosis Comments PATHOLOGY REPORT 01/25/2024 12:0 0 AM EDT documented in this encounter Results * PATHOLOGY REPORT (01/25/2024 12:00 AM EDT) Kelli Costello MD PATHOLOGY/CYTOLOGY O RDERABLES documented in this encounter Visit Diagnoses Not on filedocumented in this encounter Care Teams Cloth Stretcher Relationship Specialty Start Date End Date Yakov Holm MD [address] [place] [address] PCP - General Internal Medicine 06/01/23 Chiqui Pena DO [address] [place] [address] Obstetrics and Gynecology 09/05/23 documented as of this encounter
--- OUTSIDE RECORDS SUMMARY | 2024-06-26 17:57 | XMS_ITS | Clinical Summary ---
Author Organization [address] Address [address] [place] [address] Care Team Providers Care Duct Installer Name Role Phone Yakov Holm MD Primary Care Provider [phone] Allergies No known active allergies Medications lisinopriL-hydr ochlorothiazide (PRINZIDE,ZESTO RETIC) 20-12.5 mg per tablet Take 1 tablet by mouth daily. 01/21/2024 Active venlafaxine XR (EFFEXOR XR) 75 mg 24 hr capsule Take 1 capsule (75 mg total) by mouth. 03/11/2024 Active rOPINIRole (REQUIP) 4 mg tablet Take 1 tablet (4 mg total) by mouth. 11/07/2023 Active terbinafine HCL (LAMISIL) 250 mg tablet Take 1 tablet (250 mg total) by mouth. 06/30/2023 Active doxycycline hyclate (VIBRAMYCIN) 100 mg capsule Take 1 capsule (100 mg total) by mouth 2 (two) times daily. 20 capsule 05/09/2024 Active albuterol sulfate 90 mcg/actuation HFA aerosol inhaler Inhale 2 puffs into the lungs every 6 (six) hours as needed for wheezing. 6.7 g 05/09/2024 Active promethazine-de xtromethorphan (PROMETHAZINE-D M) 6.25-15 mg/5 mL syrup Take 5 mLs by mouth nightly. 70 mL 05/09/2024 Active Encounters Date Type Department Care Team Description 05/09/2024 10:50 AM EST Office Visit [facility] [place] [address] [place] [phone] Gonzalo Rogers [place] Runny nose (Primary Dx); Bronchitis from Last 3 Months Family History Relation Name Status Comments Father Mother Unknown Social History Tobacco Use Types Packs/Day Years Used Date Smoking Tobacco: Never Smokeless Tobacco: Never Tobacco Cessation:Counseling Given: Not Answered Alcohol Use Standard Drinks/Week Comments Yes 0 (1 standard drink = 0.6 oz pur e alcohol) seldom Comments Unknown Sex and Gender Information Value Date Recorded Sex Assigned at Not on file Legal Sex Female 10:21 AM EST Gender Identity Not on file Sexual Orientation Not on file Last Filed Vital Signs Vital Sign Reading Time Taken Comments Blood Pressure 117/85 05/09/2024 11:17 AM EST Pulse 77 05/09/2024 11:17 AM EST Temperature 36.4 ??C (97.6 ??F) 05/09/2024 11:[address] Respiratory Rate 18 05/09/2024 11:17 AM EST Oxygen Saturation 96% 05/09/2024 11:17 AM EST Inhaled Oxygen Concentration - - Weight 81.6 kg (180 lb) 05/09/2024 11:17 AM EST Height 152.4 cm (5') 05/09/2024 11:17 AM EST Body Mass Index 35.15 05/09/2024 11:17 AM EST Plan of Treatment Health Maintenance Due Date Last Done Comments HIV screening 12/01/1971 Hepatitis C screening 1976 Breast cancer screening 1998 Lipid disorder screening 1998 Colon cancer screening, Colonoscopy 12/01/2003 Diabetes screening 12/01/2003 Shingles vaccine (Shingrix) (1 of 2 - Shingrix (RZV) 2 Dose Standard Series) 2008 RSV Discussion (1 - Risk 60- 74 years 1-dose series) 2018 Influenza vaccine 11/22/2023 01/05/2023 Osteoporosis screening (bone density) 12/01/2023 Pneumococcal Vaccine (50+ ye ars) (1 of 1 - PCV) 12/01/2023 Covid-19 vaccine series ( - 2023- season) 2023 Tetanus adult (Td q 10,TDAP once) 01/05/2033 023 Cervical cancer screening Discontinued Meningococcal Vaccine Aged Out No emily tim eligible based on patient's age to complete this topic Procedures Procedure Name Priority Date/Time Associated Diagnosis Comments POCT SARS COV-2 (COVID-19) PCR/INFLUENZA A+B ([facility]) Routine 05/09/2024 11:42 AM EST Runny nose from Last 3 Months Results * POCT SARS COV-2 (COVID-19) PCR/Influenza A+B (In-Clinic) (05/09/2024 11:42 AM EST) POC SARS-CoV-2 (COVID-19) PCR Not Detected Not Detected POC Influenza A Not Detected Not Detected POC Influenza B Not Detected Not Detected POC Kit Lot Number [id number] POC Expiration Date 09/20/2025 Nasal Swab 05/09/2024 11:4 2 AM EST Daniel Eddy [place] POINT OF CARE ORDERS W/FUTURE Fi nal Result from Last 3 Months Insurance MEDICARE [facility] MEDICARE [facility] MEDICARE [facility] Care Teams Duct Installer Relationship Specialty Start Date End Date Yakov Holm MD [address] [facility] [address] [place] [address] PCP - General Internal Medicine 05/09/24
--- OUTSIDE RECORDS SUMMARY | 2024-06-26 17:57 | XMS_ITS | Encounter Summary ---
Author Organization [facility] Address [address] [place] [address] Care Team Providers Care Retail Account Manager Name Role Phone Yakov Holm MD Primary Care Provider [phone] Chiqui Pena DO Unavailable [phone] Reason for Visit * Reason Comments Medication Refill Encounter Details Date Type Department Care Team (Late st Contact Info) Description 06/10/[address] [phone] Yakov Holm MD [address] [place] [address] Dysthymia; Primary hypertension Social History Tobacco Use Types Packs/Day Years [...] Description 07/03/2024 5:00 PM EDT Office Visit [address] [address] [place] [address] [place] [address] 10/03/2024 1:00 PM EDT Office Visit [address] [address] Yakov Holm MD [address] [place] [address] documented as of this encounter Visit Diagnoses Diagnosis Dysthymia Dysthymic disorder Primary hypertension Unspecified essential hypertension documented in this encounter Care Teams Retail Account Manager Relationship Specialty Start Date End Date Yakov Holm MD [address] [place] [address] PCP - General Internal Medicine 06/01/23 Chiqui Pena DO [address] [place] [address] Obstetrics and Gynecology 09/05/23 documented as of this encounter
--- OUTSIDE RECORDS SUMMARY | 2024-06-26 17:57 | XMS_ITS | Encounter Summary ---
Author Organization [facility] Address [address] [place] [address] Care Team Providers Care Manager Video Games Name Role Phone Yakov Holm MD Primary Care Provider [phone] Chiqui Pena DO Unavailable [phone] Reason for Visit * Reason Comments Referral Encounter Details Date Type Department Care Team (Late st Contact Info) Description 12/04/[address] [phone] Yakov Holm MD [address] [place] [phone] Referral Social History Tobacco Use Types Packs/Day Years [...] Description 07/03/2024 5:00 PM EDT Office Visit [facility] [address] [place] [phone] Yakov Holm MD [address] [place] [address] 10/03/2024 1:00 PM EDT Office Visit [facility] [address] [place] [phone] Yakov Holm MD [address] [place] [address] documented as of this encounter Visit Diagnoses Not on filedocumented in this encounter Care Teams Manager Video Games Relationship Specialty Start Date End Date Yakov Holm MD [address] [place] [address] PCP - General Internal Medicine 06/01/23 Chiqui Pena DO [address] [place] [address] Obstetrics and Gynecology 09/05/23 documented as of this encounter
--- OUTSIDE RECORDS SUMMARY | 2024-06-26 17:57 | XMS_ITS | Encounter Summary ---
Author Organization [facility] Address [address] [place] [address] Care Team Providers Care Retort Condenser Attendant Name Role Phone Jason Seth MD Primary Care Provider [phone] Encounter Details Date Type Department Care Team (Late st Contact Info) Description 06/12/[address] [facility] [address] [facility] [place] [address] Yaima Cisneros NP [address] [facility] [address] [place] [address] Urgency of urination Social History Tobacco Use Types Packs/Day Years Used Date Smoking Tobacco: Former Smokeless Tobacco: Former Alcohol Use Standard Drinks/Week Comments Yes 0 (1 standard drink = 0.6 oz pur e alcohol) Comments Unknown Sex and Gender Information Value Date Recorded Sex Assigned at Not on file Legal Sex Female 6:56 AM EST Gender Identity Not on file Sexual Orientation Not on file documented as of this encounter Plan of Treatment Not on file documented as of this encounter Procedures Procedure Name Priority Date/Time Associated Diagnosis Comments BACTERIAL IDENTIFICATION AND SUSCEPTIBILITY, AEROBIC Routine 06/12/2024 12:00 AM EST Urgency of urination documented in this encounter Results * (ABNORMAL) Bacterial identification and susceptibility, aerobic (06/12/2024 12:00 AM EST) Culture, Bacterial ID and Sensitivity Klebsiella aerogenes(A) RADHA 06/13/2024 10:10 AM EST [facility] Comment: This is an edited result. Previous organism was Gram negative bacilli on 06/12/2024 at 1023 EST. Other Urine specimen from urethra / Unknown 06/12/2024 06/12/2024 9:29 AM EST Narrative Organism Antibiotic Method Susceptibility Klebsiella aerogenes Amoxicillin/Clavulanate RADHA >=32 ug/ml: Resistant Klebsiella aerogenes Cefoxitin RADHA >=64 ug/ml: Resistant Klebsiella aerogenes Ceftazidime RADHA <=0.5 ug/ml: Susceptible Klebsiella aerogenes Ceftriaxone RADHA <=0.25 ug/ml: Susceptible Klebsiella aerogenes Cefepime RADHA <=0.12 ug/ml: Susceptible Klebsiella aerogenes Amikacin RADHA <=1 ug/ml: Susceptible Klebsiella aerogenes Gentamicin RADHA <=1 ug/ml: Susceptible Klebsiella aerogenes Ciprofloxacin RADHA <=0.06 ug/ml: Susceptible Klebsiella aerogenes Levofloxacin RADHA <=0.12 ug/ml: Susceptible Klebsiella aerogenes Nitrofurantoin RADHA 64 ug/ml: Intermediate Klebsiella aerogenes Trimethoprim/Sulfamethoxazole RADHA <=20 ug/ml: Susceptible Yaima Cisneros SHOWER ROOM ATTENDANT LAB MICROBIOLOGY - GENERA L ORDERABLES Final Result [facility] [address] [place] [address], documented in this encounter Visit Diagnoses Diagnosis Urgency of urination documented in this encounter Care Teams Retort Condenser Attendant Relationship Specialty Start Date End Date Jason Seth MD [address] PCP - General 06/26/13 documented as of this encounter
--- OUTSIDE RECORDS SUMMARY | 2024-06-26 17:57 | XMS_ITS | Clinical Summary ---
Author Organization Formerly [facility] Address [address] [place] [address] Care Team Providers Care [employer] Name Role Phone Yakov Holm MD Primary Care Provider [phone] Chiqui Pena DO Unavailable [phone] Allergies No known active allergies Medications Medication Sig Dispensed Refills Start Date End Date Status folic acid (FOLVITE) 1 MG tablet 11/01/2022 Active Botox 100 units Recon Soln injection Every 5 months 01/12/2023 Active methotrexate (RHEUMATREX) 2.5 mg tablet 12 tabs weekly 05/11/2023 Active hydrocortisone (ANUSOL-HC) 2.5 % rectal creamIndications:H emorrhoids, unspecified hemorrhoid type Insert into the rectum 3 (three) times a day as needed for hemorrhoids. 28 g 02/29/2024 Active dicyclomine (BENTYL) 20 MG tabletIndications: Generalized abdominal pain Take 0.5 tablets (10 mg total) by mouth 4 (four) times a day. 30 tablet 03/07/2024 Active phentermine 37.5 MG capsuleIndications :BMI 40.0-44.9, adult (HCC) Take 1 capsule (37.5 mg total) by mouth every morning. 30 capsule 03/07/2024 Active rOPINIRole (REQUIP) 4 MG tabletIndications: Restless leg syndrome Take 1 tablet (4 mg total) by mouth nightly. 90 tablet 06/03/2024 Active venlafaxine (EFFEXOR-XR) 75 MG 24 hr capsuleIndications :Dysthymia Take 1 capsule (75 mg total) by mouth daily. 90 capsule 1 06/10/2024 Active lisinopril-hydroCH LOROthiazide (PRINZIDE,ZESTORET IC) 20-12.5 MG per tabletIndications: Primary hypertension Take 1 tablet by mouth daily. 90 tablet 06/10/2024 Active gabapentin (NEURONTIN) 300 MG capsuleIndications :Restless leg syndrome Take 1 capsule (300 mg total) by mouth nightly. 90 capsule 3 09/24/2023 5 Discontinue d(Med List Clean-up/Ol d Med - No E-Cancel/No AVS) gabapentin (NEURONTIN) 100 MG capsuleIndications :Restless leg syndrome Take 1 cap at 6pm and increase as needed and tolerated up to 300mg 270 capsule 3 10/22/2023 5 Discontinue d(Med List Clean-up/Ol d Med - No E-Cancel/No AVS) rOPINIRole (REQUIP) 4 MG tabletIndications: Restless leg syndrome Take 1 tablet (4 mg total) by mouth nightly. 90 tablet 3 11/07/2023 5 Discontinue d(Reorder) lisinopril-hydroCH LOROthiazide (PRINZIDE,ZESTORET IC) 20-12.5 MG per tabletIndications: Primary hypertension Take 1 tablet by mouth daily. 90 tablet 01/21/2024 5 Discontinue d(Reorder) venlafaxine (EFFEXOR-XR) 75 MG 24 hr capsuleIndications :Dysthymia Take 1 capsule (75 mg total) by mouth daily. 90 capsule 1 03/11/2024 5 Discontinue d(Reorder) Active Problems Problem Noted Date Diagnosed Date Change in bowel function 05/28/2024 Assessment & Plan (05/28/2024 3:19 PM EST): Proceed with stool studies to rule out infectious process If occurs again can consider pelvic floor PT Hemorrhoids 05/28/2024 Assessment & Plan (05/28/2024 3:18 PM EST): Advised to avoid constipation, prolonged sitting or straining on toilet. Rec to try OTC meds for symptomatic relief, such as: hydrocortisone creams, warm sitz baths, witch tahmina, aloe vera cooling gel or lidocaine 3-5% creams Will send referral to colorectal surgery Family history of colonic polyps 01/11/2024 Assessment & Plan (05/28/2024 3:19 PM EST): Patient is aware of colonoscopy recall Assessment & Plan (01/11/2024 10:13 AM EDT): A colonoscopy will be scheduled based on current indication. The indications, prep, alternatives and the procedure were thoroughly explained. There is no contraindication to colonoscopy. All questions were answered. The potential risks including but not limited to bleeding, infection, and perforation were also explained. History of colon polyps 01/11/2024 Assessment & Plan (05/28/2024 3:19 PM EST): Patient is aware of colonoscopy recall Disclaimer: Portions of this note were dictated by speech recognition. Minor errors in echo technologist may be present Assessment & Plan (01/11/2024 10:13 AM EDT): A colonoscopy will be scheduled based on current indication. The indications, prep, alternatives and the procedure were thoroughly explained. There is no contraindication to colonoscopy. All questions were answered. The potential risks including but not limited to bleeding, infection, and perforation were also explained. Disclaimer: Portions of this note were dictated by speech recognition. Minor errors in echo technologist may be present Severe obesity 01/10/2024 Postoperative seroma involvi ng nervous system after nervous system procedure 05/17/2023 BMI 40.0-44.9, adult 05/04/2023 BMI 38.0-38.9,adult 12/19/2022 Spondylolisthesis, grade 1 12/19/2022 Spinal stenosis of lumbar re gion with neurogenic claudication 11/10/2022 Chronic bilateral low back pain with right-sided sciatica 11/10/2022 BMI 39.0-39.9,adult 11/10/2022 Restless leg syndrome Sleep apnea Overview (06/01/2023): +CPAP Encounters Date Type Department Care Team Description 06/18/2024 [place] [address] Yakov Holm MD Lumbar spondylitis (Primary Dx) 06/11/2024 Scanned Document [facility] UROLOGY SCAN Urology, Scan 06/10/2024 [facility] [address] [place] [address] Yakov Holm MD Dysthymia; Primary hypertension 06/02/2024 [facility] Neurology [place] [address] [facility] [address] [place] [address] Zahra Nolan MD Restless leg syndrome 05/28/2024 2:30 PM EST Office Visit [facility] [address] [facility] [address] [place] [phone] Clau Zavala APRN Family history of colonic polyps (Primary Dx); History of colon polyps; Change in bowel function; Hemorrhoids, unspecified hemorrhoid type 05/19/2024 Scanned Document [facility] UROLOGY SCAN Urology, Scan 04/30/2024 Scanned Document [facility] GENERAL SURG SCAN General Surgery, Scan 04/14/2024 9:20 AM EST - 04/14/2024 11:59 PM EST Hospital Encounter [facility] Radiology [facility] [address] [place] [address] Yakov Holm MD Generalized abdominal pain Discharge Disposition: Home or Self Care 04/14/2024 Travel 03/28/2024 10:50 AM EST Consult [facility] Colorectal Surgery [place] [address] [facility] [address] [place] [phone] Yakov Holm MD Vignati, Paul V, MD Internal hemorrhoids with complication (Primary Dx) 03/28/2024 Travel from Last 3 Months Immunizations Name Administration Dates Next Due Influenza, Quadrivalent (FLU CELVAX) MDCK, Preservative Free IM 01/05/2023 Tdap 01/05/2023 Family History Medical History Relation Name Comments Alcohol abuse Brother Sanjeev Diabetes Brother Sanjeev Hypertension Brother Sanjeev Alcohol abuse Father Qasim Diabetes Father Qasim Heart attack Father Qasim Hypertension Father Qasim Colon polyps Mother Chiqui Diabetes Mother Chiqui Hypertension Mother Chiqui Relation Name Status Comments Brother Sanjeev Father Qasim Mother Chiqui Social History Tobacco Use Types Packs/Day Years Used Date Smoking Tobacco: Former Cigarettes 0 04/23/1975 - 04/23/1985 Smokeless Tobacco: Never Tobacco Cessation:Counseling Given: Not Answered Alcohol Use Standard Drinks/Week Comments Yes 2 [...] Orientation Heterosexual (straight) 11/01 11:18 AM EDT Last Filed Vital Signs Vital Sign Reading Time Taken Comments Blood Pressure 138/92 05/28/2024 2:44 PM EST Pulse 97 05/28/2024 2:44 PM EST Temperature 36.2 ??C (97.2 ??F) 03/28/2024 11:[address] Respiratory Rate 14 03/07/2024 12:55 PM EST Oxygen Saturation 98% 03/28/2024 11:20 AM EST Inhaled Oxygen Concentration - - Weight 60.8 kg (134 lb) 05/28/2024 2:44 PM EST Height 152.4 cm (5') 05/28/2024 2:44 PM EST Body Mass Index 26.17 05/28/2024 2:44 PM EST Plan of Treatment Upcoming Encounters Date Type Department Care Team (Late st Contact Info) Description 07/03/2024 5:00 PM EDT Office Visit [address] [address] Yakov Holm MD [address] [place] [address] 10/03/2024 1:00 PM EDT Office Visit [facility] [address] [place] [phone] Yakov Holm MD [address] [place] [address] Health Maintenance Due Date Last Done Comments Hepatitis C Virus Screening 1958 HIV Screening 12/01/1971 Pneumococcal Vaccines 50+ (1 of 2 - PCV) 1977 Zoster (Shingles) Vaccine (1 of 2) 1977 Mammogram 1998 RSV Vaccine 60 years and older and Patients (1 - Risk 60-74 years 1-dose series) 2018 Influenza Vaccine 11/22/2023 01/05/2023 COVID-19 Vaccine ( - season) 2023 02/08/2021, 07/28/2020, 07/07/2020 Pap Smear (Ages 21-65) 01/05/2024 01/04/2021 Physical 09/04/2024 09/05/2023 DXA Bone Density (Females,Ages 65 and older) 07/05/2025 07/06/2023 DTaP/Tdap/Td Vaccines (2 - Td or Tdap) 01/05/2033 01/05/2023 Colonoscopy 01/24/2034 01/25/2024 Chronic Controlled Substance User PDMP Review Discontinued 06/08/2023, 05/21/2023, 05/17/2023, Additional history exists Hepatitis B Vaccines Aged Out No long er eligible based on patient's age to complete this topic Procedures Procedure Name Priority Date/Time Associated Diagnosis Comments CT ABDOMEN+PELVIS W/CONTRAST W/PO Routine 04/14/2024 9:54 AM EST Generalized abdominal pain BASIC METABOLIC PANEL Routine 04/11/2024 3:10 PM EST Chronic renal impairment, stage 2 (mild) DEXA BONE DENSITY HIP/PELVIS/SPINE W/FX EVAL Routine 07/06/2023 Age-related osteoporosis without current pathological fracture PATHOLOGY GYNECOLOGY Routine 01/04/2021 from Last 3 Months or Most Recently Relevant to Health Maintenance Results * CT Abdomen+pelvis w/contrast w/PO (04/14/2024 9:54 AM EST) Anatomical Region Laterality Modality Abdomen, Pelvis Computed Tomogra phy 04/14/2024 12:3 3 PM EST Impressions 04/14/2024 12:40 PM EST Cholelithiasis with possibly hydropic gallbladder. Small hiatal hernia. Status post sleeve gastrectomy. Small fat-containing ventral hernia. Narrative 04/14/2024 12:[address] ABDOMEN+PELVIS W/CONTRAST W/PO: 04/14/2024 9:36 AM CLINICAL INFORMATION: refractory abd pain COMPARISON: Prior lumbar spine radiograph ORAL CONTRAST: Readicat INTRAVENOUS CONTRAST: 100 mL Omnipaque 350. No adverse events occurred. TECHNIQUE: Axial CT images of the abdomen and pelvis were acquired. Sagittal and coronal reconstructions were created. Iterative reconstruction was employed to reduce radiation exposure. FINDINGS: LOWER CHEST: Lung bases normal. ??Aortic valvular calcification partially imaged. LIVER: Normal. GALLBLADDER: Cholelithiasis. Well distended, possibly heterotopic. No associated inflammatory changes. BILIARY: Normal. SPLEEN: Normal. PANCREAS: Normal. ADRENAL GLANDS: Normal. KIDNEYS & URETERS: Normal. URINARY BLADDER: Mild mucosal hyperenhancement. UTERUS & OVARIES: Normal. GASTROINTESTINAL TRACT: Small hiatal hernia. Status post sleeve gastrectomy. Small and large bowel normal, including the appendix. No diverticular disease. PERITONEUM/RETROPERITONEUM: Normal. LYMPH NODES: ??Normal. VASCULATURE: Mild scattered aortoiliac calcifications. ABDOMINAL WALL: Small fat-containing supraumbilical ventral hernia. Hernia sac measures 3.8 x 3.5 x 1.3 cm. MUSCULOSKELETAL: Mild levoconvex lumbar curvature. Degenerative changes, most pronounced in the lumbar facet joints. Grade 1 anterolisthesis of L4 on L5, similar to the 04/19/2023 lumbar spine radiograph. Procedure Note Mo Briggs MD - 04/14/2024 CT ABDOMEN+PELVIS W/CONTRAST W/PO: 04/14/2024 9:36 AM CLINICAL INFORMATION: refractory abd pain COMPARISON: Prior lumbar spine radiograph ORAL CONTRAST: Readicat INTRAVENOUS CONTRAST: 100 mL Omnipaque 350. No adverse events occurred. TECHNIQUE: Axial CT images of the abdomen and pelvis were acquired.Sagittal and coronal reconstructions were created. Iterativereconstruction was employed to reduce radiation exposure. FINDINGS: LOWER CHEST: Lung bases normal. Aortic valvular calcification partiallyimaged. LIVER: Normal. GALLBLADDER: Cholelithiasis. Well distended, possibly heterotopic. Noassociated inflammatory changes. BILIARY: Normal. SPLEEN: Normal. PANCREAS: Normal. ADRENAL GLANDS: Normal. KIDNEYS & URETERS: Normal. URINARY BLADDER: Mild mucosal hyperenhancement. UTERUS & OVARIES: Normal. GASTROINTESTINAL TRACT: Small hiatal hernia. Status post sleevegastrectomy. Small and large bowel normal, including the appendix. Nodiverticular disease. PERITONEUM/RETROPERITONEUM: Normal. LYMPH NODES: Normal. VASCULATURE: Mild scattered aortoiliac calcifications. ABDOMINAL WALL: Small fat-containing supraumbilical ventral hernia. Herniasac measures 3.8 x 3.5 x 1.3 cm. MUSCULOSKELETAL: Mild levoconvex lumbar curvature. Degenerative changes,most pronounced in the lumbar facet joints. Grade 1 anterolisthesis of L4on L5, similar to the 04/19/2023 lumbar spine radiograph. IMPRESSION: Cholelithiasis with possibly hydropic gallbladder. Small hiatal hernia. Status post sleeve gastrectomy. Small fat-containing ventral hernia. Yakov Holm MD [facility] CT ORDERABLES * Basic metabolic panel (04/11/2024 3:10 PM EST) Glucose 72 65 - 99 mg/dL [facility] Comment: ? Fasting reference interval Blood Urea Nitrogen (BUN) 22 7 - 25 mg/dL [facility] Creatinine 0.74 0.50 - 1.05 mg/dL [facility] Creatinine w/ eGFR 90 > OR = 60 mL/min/1. 73m2 [facility] BUN/Creatinine Ratio SEE NOTE: (calc) [facility] Comment: ?? Not Reported: BUN and Creatinine are within ?? reference range. ? Sodium 137 135 - 146 mmol/L [facility] Potassium 3.7 3.5 - 5.3 mmol/L [facility] Chloride 102 98 - 110 mmol/L [facility] CO2 25 20 - 32 mmol/L [facility] Calcium 8.8 8.6 - 10.4 mg/dL [facility] Blood Blood specimen / Unknown 04/11/2024 3:10 PM EST 04/11/2024 3:11 PM EST Yakov Holm MD LAB BLOOD ORDERABLES Performing Organization Address City/State/[facility] Co de Phone Number [employer] [address] [place] [phone] * DEXA Bone density-Hip/pelvis/spine w/fx eval (07/06/2023) Anatomical Region Laterality Modality Digital Radiogra phy 07/06/2023 Yakov Holm MD IMG DXA ORDERABLES * PATHOLOGY GYNECOLOGY (01/04/2021) Scan Gynecology [facility] HX PATH PROCEDUR ES from Last 3 Months or Most Recently Relevant to Health Maintenance Advance Directives * Full Code (Latest Code Status on File) Date Activated Date Inactivated Comments 04/19/2023 12:52 PM Care Teams [employer] Relationship Specialty Start Date End Date Yakov Holm MD [address] [place] [address] PCP - General Internal Medicine 06/01/23 Chiqui Pena DO [address] [place] [address] Obstetrics and Gynecology 09/05/23
--- OUTSIDE RECORDS SUMMARY | 2024-06-26 17:57 | XMS_ITS | Encounter Summary ---
Author Organization [facility] Address [address] [place] [address] Care Team Providers Care Integration Software Developer Name Role Phone Yakov Holm MD Primary Care Provider [phone] Chiqui Pena DO Unavailable Encounter Details Date Type Department Care Team (Late st Contact Info) Description 04/30/2024 Scanned Document [facility] GENERAL SURG SCAN General Surgery, Scan Social History Tobacco Use Types [...] 07/03/2024 5:00 PM EDT Office Visit [address] [place] [address] Yakov Holm MD [address] [place] [address] 10/03/2024 1:00 PM EDT Office Visit [facility] [address] [place] [address] Yakov Holm MD [address] [place] [address] documented as of this encounter Visit Diagnoses Not on filedocumented in this encounter Care Teams Integration Software Developer Relationship Specialty Start Date End Date Yakov Holm MD [address] [place] [address] PCP - General Internal Medicine 06/01/23 Chiqui Pena DO [address] [place] [address] Obstetrics and Gynecology 09/05/23 documented as of this encounter
--- OUTSIDE RECORDS SUMMARY | 2024-06-26 17:57 | XMS_ITS | Clinical Summary ---
Author Organization [address] [facility] Address [address] [place] [address] Phone Care Team Providers Care Manager Mobility Name Role Phone Jason Seth MD Primary Care Provider [phone] Encounters Date Type Department Care Team Description 06/12/2024 Lab Requisition [facility] [address] [place] [address] Yaima Cisneros NP Urgency of urination from Last 3 Months Surgical History Surgery Date Site/Laterality Comments CATARACT EXTRACTION PROCEDURE: HISTORICAL CATARACT REMOVAL TOTAL KNEE ARTHROPLASTY Left PROCEDURE: OH ARTHRP KNE CONDYLE&PLATU MEDIAL&LAT COMPARTMENTS TOTAL KNEE ARTHROPLASTY Right PROCEDURE: OH ARTHRP KNE CONDYLE&PLATU MEDIAL&LAT COMPARTMENTS KNEE SURGERY PROCEDURE: HISTORICAL KNEE SURGERY OTHER SURGICAL HISTORY PROCEDURE: OH LAPS GASTRIC RESTRICTIVE PROCEDURE PLACE DEVICE ROTATOR CUFF REPAIR Right PROCEDURE: HISTORICAL ROTATOR CUFF REPAIR Medical History Medical History Date Comments Asthma DX:Asthma Back pain DX:Back pain Colon polyps DX:Colon polyps Diverticulosis DX:Diverticulosi s Insomnia DX:Insomnia 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) DX:Major depression in parti al remission (HCC) Microscopic hematuria DX:Microsc opic hematuria Obesity DX:Obesity Restless leg syndrome DX:Restles s leg syndrome Social History Tobacco Use Types Packs/Day Years Used Date Smoking Tobacco: Former Smokeless Tobacco: Former Alcohol Use Standard Drinks/Week Comments Yes 0 (1 standard drink = 0.6 oz pur e alcohol) Comments Unknown Sex and Gender Information Value Date Recorded Sex Assigned at Not on file Legal Sex Female 6:56 AM EST Gender Identity Not on file Sexual Orientation Not on file Obstetrics History Plan of Treatment Health Maintenance Due Date Last Done Comments Breast Cancer Screening 1960 DTaP,Tdap,and Td Vaccines (1 - Tdap) 1977 Cervical Cancer Screening: P ap Smear 12/01/1979 Pneumococcal Vaccine: 50+ Ye ars (1 of 1 - PCV) 2008 Zoster Vaccines (1 of 2) 2008 Cholesterol Screening (Lipid Panel) 03/26/2022 Colorectal Cancer Screening: Colonoscopy 03/26/2022 Depression Screening 03/26/2022 Hepatitis C Screening 03/26/2022 Medicare Annual Wellness Visit 03/26/2022 Osteoporosis Screening (Bone Density Screening) 03/26/2022 Social Influencers of Health Screening 03/26/2022 Hypertension/CHF/CAD Annual BMP Blood Test 04/07/2022 Falls Risk Assessment 12/01/2023 COVID-19 Vaccine (2023-2 5 season) 2023 Influenza Vaccine (#1) 2023 RSV Immunization Patients 60 + Years Old (1 - 1-dose 75+ series) 2033 HIB Vaccines Aged Out No longer eligi ble based on patient's age to complete this topic HPV Vaccines Aged Out No longer eligi ble based on patient's age to complete this topic Hepatitis A Vaccines Aged Out No long er eligible based on patient's age to complete this topic Hepatitis B Vaccines Aged Out No long er eligible based on patient's age to complete this topic IPV Vaccines Aged Out No longer eligi ble based on patient's age to complete this topic MMR Vaccines Aged Out No longer eligi ble based on patient's age to complete this topic Meningococcal ACWY Vaccine Aged Out N o longer eligible based on patient's age to complete this topic Meningococcal B Vacine Aged Out No lo nger eligible based on patient's age to complete this topic Pneumococcal Vaccine: Pediat rics (0 to 5 Years) and At-Risk Patients (6 to 64 Years) Aged Out No longer eligible b ased on patient's age to complete this topic RSV Immunization Patients Un joey 20 months Aged Out No longer eligible b ased on patient's age to complete this topic Varicella Vaccines Aged Out No longer eligible based on patient's age to complete this topic Procedures Procedure Name Priority Date/Time Associated Diagnosis Comments BACTERIAL IDENTIFICATION AND SUSCEPTIBILITY, AEROBIC Routine 06/12/2024 12:00 AM EST Urgency of urination from Last 3 Months Results * (ABNORMAL) Bacterial identification and susceptibility, aerobic (06/12/2024 12:00 AM EST) Culture, Bacterial ID and Sensitivity Klebsiella aerogenes(A) RADHA 06/13/2024 10:10 AM EST [facility] Comment: This is an edited result. [...] Trimethoprim/Sulfamethoxazole RADHA <=20 ug/ml: Susceptible Yaima Cisneros SYSTEM TECHNOLOGIST LAB MICROBIOLOGY - GENERA L ORDERABLES Final Result [facility] [address] [place] [address], from Last 3 Months Insurance [phone] (Work) [address] [id number] MEDICARE [facility] Care Teams Manager Mobility Relationship Specialty Start Date End Date Jason Seth MD [address] PCP - General 06/26/13
--- OUTSIDE RECORDS SUMMARY | 2024-06-26 17:57 | XMS_ITS | Encounter Summary ---
Author Organization [facility] Address [address] [place], [place] [id number] Care Team Providers Care Gas Brazer Name Role Phone Yakov Holm MD Primary Care Provider Chiqui Pena DO Unavailable [phone] Reason for Referral * Rheumatology (Routine) - Authorized Specialty Diagnoses / Procedures Referred By Contac t Referred To Contact Rheumatology Diagnoses Lumbar spondylitis Yakov Holm MD [address] [place] [address] Talat Aviles MD [address] [place] [address] Referral ID Status Reason Start Date Expiration Date V isits Requested Visits Authorized [id number] Authorized Consult 06/18/2024 06/19/2025 1 1 Encounter Details Date Type Department Care Team (Late st Contact Info) Description 06/18/2024 Orders Only [address] [phone] Yakov Holm MD [address] [place] [phone] Lumbar spondylitis (Primary Dx) Social History Tobacco Use Types Packs/Day Years [...] Description 07/03/2024 5:00 PM EDT Office Visit [address] [address] Yakov Holm MD [address] [place] [address] 10/03/2024 1:00 PM EDT Office Visit [address] [address] Yakov Holm MD [address] [place] [address] Scheduled Referrals Name Type Priority Associated Diagnoses Orde r Schedule Amb referral to Rheumatology Outpatient Referral Routine Lumbar spondylitis (HCC) Ordered: 06/18/2024 documented as of this encounter Visit Diagnoses Diagnosis Lumbar spondylitis- Primary documented in this encounter Care Teams Gas Brazer Relationship Specialty Start Date End Date Yakov Holm MD [address] [place] [address] PCP - General Internal Medicine 06/01/23 Chiqui Pena DO [address] [place] [address] Obstetrics and Gynecology 09/05/23 documented as of this encounter
--- OUTSIDE RECORDS SUMMARY | 2024-06-26 17:57 | XMS_ITS | Encounter Summary ---
Author Organization [facility] Address [address] [place] [address] Care Team Providers Care Loss Prevention Supervisor Name Role Phone Yakov Holm MD Primary Care Provider [phone] Chiqui Pena DO Unavailable [phone] Yakov Holm MD Unavailable [phone] Encounter Details Date Type Department Care Team (Late st Contact Info) Description 08/23/2023 Scanned Document [facility] EMERGENCY MED SCAN Emergency Medicine, Scan Social History Tobacco Use Types Packs/Day [...] [facility] [address] [place] [address] Yakov Holm MD [address] [place] [address] 10/03/2024 1:00 PM EDT Office Visit [facility] [address] [place] [address] Yakov Holm MD [address] [place] [address] documented as of this encounter Visit Diagnoses Not on filedocumented in this encounter Care Teams Loss Prevention Supervisor Relationship Specialty [place] [address] [place] [address] PCP - General Internal Medicine 06/01/23 [place] [address] [place] [address] PCP - [place] [employer] Attributed 06/22/23 11/21/23 Chiqui Pena DO [address] [place] [address] Obstetrics and Gynecology 09/05/23 documented as of this encounter
--- OUTSIDE RECORDS SUMMARY | 2024-06-26 17:57 | XMS_ITS | Encounter Summary ---
Author Organization [facility] Address [address] [place] [address] Care Team Providers Care Manager Of Warehouse Name Role Phone Yakov Holm MD Primary Care Provider [phone] Chiqui Pena DO Unavailable [phone] Encounter Details Date Type Department Care Team ([facility] st Contact Info) Description 06/02/2024 [facility] Medical [facility] Neurology [address] [phone] Zahra Nolan MD [address] [place] [address] Restless leg syndrome Social History Tobacco Use Types [...] Description 07/03/2024 5:00 PM EDT Office Visit [facility] [address] [place] [phone] [place] [address] [place] [address] 10/03/2024 1:00 PM EDT Office Visit [address] [phone] Yakov oHlm MD [address] [place] [address] documented as of this encounter Visit Diagnoses Diagnosis Restless leg syndrome Restless legs syndrome (RLS) documented in this encounter Care Teams Manager Of Warehouse Relationship Specialty Start Date End Date Yakov Holm MD [address] [place] [address] PCP - General Internal Medicine 06/01/23 Chiqui Pena DO [address] [place] [address] Obstetrics and Gynecology 09/05/23 documented as of this encounter
--- OUTSIDE RECORDS SUMMARY | 2024-06-26 17:57 | XMS_ITS | Encounter Summary ---
Author Organization [facility] Address [address] [place] [address] Care Team Providers Care President Sales And Marketing Name Role Phone Yakov Holm MD Primary Care Provider [phone] Chiqui Pena DO Unavailable [phone] Reason for Referral * Colorectal (Routine) - Authorized Specialty Diagnoses / Procedures Referred By Contac t Referred To Contact Surgery, Colorectal Diagnoses Hemorrhoids, unspecified hemorrhoid type Clau Zavala APRN [address] [place] [address] Yakov Jones MD [address] [place] [address] [address] Referral ID Status Reason Start Date Expiration Date Visits Requested Visits Authorized [id number] Authorized Specialty Services Required 05/28/2024 05/29/2025 1 1 Question Answer Select Referral Type Consult Reason for Visit * Reason Comments Follow-up * Gastroenterology (Routine) - Closed Specialty Diagnoses / Procedures Referred By Contac t Referred To Contact Gastroenterology Diagnoses Generalized abdominal pain Yakov Holm MD [address] [place] [address] Rossana Whitaker MD [address] [place] [address] Referral ID Status Reason Start Date Expiration Date V isits Requested Visits Authorized [id number] Closed Consult 03/07/2024 03/08/2025 1 1 Encounter Details Date Type Department Care Team (Late st Contact Info) Description 05/28/2024 2:30 PM EST Office Visit [facility] [address] [facility] [address] [place] [phone] Clau Zavala APRN [address] [facility] [address] [place] [address] Family history of colonic polyps (Primary Dx); History of colon polyps; Change in bowel function; Hemorrhoids, unspecified hemorrhoid type Social History Tobacco Use Types Packs/Day Years [...] AM EDT documented as of this encounter Last Filed Vital Signs Vital Sign Reading Time Taken Comments Blood Pressure 138/92 05/28/2024 2:44 PM EST Pulse 97 05/28/2024 2:44 PM EST Temperature - - Respiratory Rate - - Oxygen Saturation - - Inhaled Oxygen Concentration - - Weight 60.8 kg (134 lb) 05/28/2024 2:44 PM EST Height 152.4 cm (5') 05/28/2024 2:44 PM EST Body Mass Index 26.17 05/28/2024 2:44 PM EST documented in this encounter Progress Notes * Clau Zavala, GLAZIER ARTIST - 05/28/2024 2:30 PM EST Images from the original note were not included. [address] [facility] [phone] [facility] PROGRESS NOTE Assessment & Plan Assessment/plan Hemorrhoids Advised to avoid constipation, prolonged sitting or straining on toilet. Rec to try OTC meds for symptomatic relief, such as: hydrocortisone creams, warm sitz baths, witch tahmina, aloe vera cooling gel or lidocaine 3-5% creams Will send referral to colorectal surgery Change in bowel function Proceed with stool studies to rule out infectious process If occurs again can consider pelvic floor PT Family history of colonic polyps Patient is aware of colonoscopy recall History of colon polyps Patient is aware of colonoscopy recall Disclaimer: Portions of this note were dictated by speech recognition. Minor errors in flight test supervisor may be present Orders Placed This Encounter Escherichia Coli 0157 Culture Ova and Parasites H. pylori Stool Antigen C. Difficile Toxin/GDH w/ Reflex to PCR Calprotectin, Stool Giardia Antigen, EIA, Stool Pancreatic Elastase-1, Stool Amb Referral to Colorectal Surgery I spent a total of 30 minutes on the day of the visit. During this visit, the time spent included the following: Examining the patient Chart review in preparation for the visit Documenting in the patient record Reviewing Labs & Radiology Medication Reconciliation All relevant data including labs, xrays, diagnositic studies, physician notes, and referral notes were reviewed Subjective Ami Fitzpatrick is a 63 y.o. female arriving in the office today for a follow up Patient denies nausea vomiting dysphagia epigastric and heartburn Patient endorses having hemorrhoids. Patient has had 3 instances with urgency and diarrhea randomly. Patient denies black tarry stool or blood in the stool Denies cardiac disorders, CKD History of LEE does not wear CPAP machine at night EtOH marijuana socially Denies family history of colorectal cancer Family history of colon polyps in her mother 03/2024: CT IMPRESSION: Cholelithiasis with possibly hydropic gallbladder. Small hiatal hernia. Status post sleeve gastrectomy. Small fat-containing ventral hernia. Prior GI Workup: Colon: 01/2024: Dr Costello: precancerous polyps, 5 year recall EGD: none Review of Systems Constitutional: Negative for decreased appetite, fever, malaise/fatigue, night sweats, weight loss and recent antibiotic use. HENT: Negative for hearing loss, hoarse voice and sleep apnea. Eyes: Negative for wears glasses or contacts and glaucoma. Respiratory: Negative for cough, shortness of breath, wheezing and difficulty breathing. Cardiovascular: Negative for chest pain, palpitations and foot swelling. Gastrointestinal: Positive for diarrhea. Negative for abdominal pain, bloating, blood in stool, change in bowel habit, constipation, flatus, heartburn, jaundice, black stool, nausea, vomiting, abdominal swelling, painful bowel movement, pain swallowing, difficulty eating/swallowing and belching. Musculoskeletal: Negative for back pain, physical disability and joint stiffness. Skin: Negative for itching and rash. Neurological: Negative for dizziness, loss of consciousness, speech difficulty and fainting. Objective Vitals: 05/28/24 1444 BP: (!) 138/92 Pulse: 97 Weight: 60.8 kg (134 lb) Height: 1.524 m (5') Body mass index is 26.17 kg/m??. Physical Exam Constitutional: Appearance: Normal appearance. Cardiovascular: Rate and Rhythm: Normal rate and regular rhythm. Pulses: Normal pulses. Heart sounds: Normal heart sounds. Pulmonary: Effort: Pulmonary effort is normal. Breath sounds: Normal breath sounds. Abdominal: General: Abdomen is flat. Bowel sounds are normal. There is no distension. Palpations: Abdomen is soft. Tenderness: There is no abdominal tenderness. There is no guarding. Skin: General: Skin is warm and dry. Neurological: General: No focal deficit present. Mental Status: She is alert and oriented to person, place, and time. Psychiatric: Mood and Affect: Mood normal. Behavior: Behavior normal. Thought Content: Thought content normal. Judgment: Judgment normal. No Known Allergies Botox 100 units Recon Soln injection Every 5 months dicyclomine (BENTYL) 20 MG tablet Take 0.5 tablets (10 mg total) by mouth 4 (four) times a day. folic acid (FOLVITE) 1 MG tablet hydrocortisone (ANUSOL-HC) 2.5 % rectal cream Insert into the rectum 3 (three) times a day as needed for hemorrhoids. lisinopril-hydroCHLOROthiazide (PRINZIDE,ZESTORETIC) 20-12.5 MG per tablet Take 1 tablet by mouth daily. methotrexate (RHEUMATREX) 2.5 mg tablet 12 tabs weekly phentermine 37.5 MG capsule Take 1 capsule (37.5 mg total) by mouth every morning. rOPINIRole (REQUIP) 4 MG tablet Take 1 tablet (4 mg total) by mouth nightly. venlafaxine (EFFEXOR-XR) 75 MG 24 hr capsule Take 1 capsule (75 mg total) by mouth daily. Recent Labs and Tests No results found for: WBC , HGB , HCT , MCV , PLT Lab Results Component Value Date GLUC 72 04/11/2024 CALCIUM 8.8 04/11/2024 NA 137 04/11/2024 K 3.7 04/11/2024 CO2 25 04/11/2024 CL 102 04/11/2024 BUN 22 04/11/2024 CREAT 0.74 04/11/2024 Lab Results Component Value Date ALT 12 06/13/2023 AST 17 06/13/2023 ALKPHOS 89 06/13/2023 BILITOT 0.4 06/13/2023 ALBUMIN 4.0 06/13/2023 No results found for: INR , PROTIME No results found for: LIPASE No results found for: AMYLASE Imaging No results found. Histories Past Medical History: Diagnosis Date Anxiety Arthritis Chronic back pain Chronic UTI Colon polyp Hemorrhoid Hypertension Overactive bladder Restless leg syndrome Rheumatoid arthritis (HCC) Seasonal asthma Skin cancer Sleep apnea +CPAP Stress incontinence Past Surgical History: Procedure Laterality Date BACK SURGERY 04-19-2023 BARIATRIC SURGERY Lost 37 pounds since august 16 2023 CATARACT EXTRACTION Left 05/2008 CATARACT EXTRACTION Right 10/2018 SECTION COLONOSCOPY COLONOSCOPY N/A 01/25/2024 Preliminary Information: Procedure: COLONOSCOPY; Surgeon: Kelli Costello MD; [place] [facility] Service: Gastroenterology; Laterality: N/A; KNEE ARTHROSCOPY 2007 LAMINECTOMY DECOMPRESSIVE LUMBAR Bilateral 04/19/2023 Procedure: LAMINECTOMY DECOMPRESSIVE LUMBAR L4-L5 right approach; Surgeon: Cong Montgomery MD; Location: [facility]; Service: Neuro-Spine; Laterality: Bilateral; LAPAROSCOPIC GASTRIC BANDING 2009 LAPAROSCOPIC REMOVAL/REPLACEMENT GASTRIC BAND 12/2022 [place] ARTHRP KNE CONDYLE&PLATU MEDIAL&LAT COMPARTMENTS 2009 REPLACEMENT TOTAL KNEE BILATERAL Bilateral 2009 ROTATOR CUFF REPAIR Right 2012 shoulder SHOULDER SURGERY 04-03-2012 STOMACH SURGERY 08-16-2023 Gastric Sleeve Social History Tobacco Use Smoking status: Former Current packs/day: 0.00 Types: Cigarettes Start date: 04/23/1975 Quit date: 04/23/1985 Years since quittin.1 Smokeless tobacco: Never Vaping Use Vaping status: Never Used Substance Use Topics Alcohol use: Yes Alcohol/week: 2.0 standard drinks of alcohol Types: 2 Glasses of wine per week Comment: 1-2 times weekly 1-2 glasses Drug use: Yes Frequency: 2.0 times per week Types: Marijuana Family History Problem Relation Age of Onset Hypertension Mother Diabetes Mother Colon polyps Mother Hypertension Father Diabetes Father Alcohol abuse Father Heart attack Father Hypertension Brother Diabetes Brother Alcohol abuse Brother GI Procedural History History question Answer Diagnosis Date Comment Colonoscopy See Comments COLONOSCOPY COLONOSCOPY 01/25/2024 Preliminary Information: Procedure: COLONOSCOPY; Surgeon: Kelli Costello MD; [place] [facility]; Service: Gastroenterology; Laterality: N/A; All relevant data including labs, xrays, diagnositic studies, physician notes, and referral notes were reviewed documented in this encounter Miscellaneous Notes * Assessment & Plan Note - Clau Zavala APRN - 05/28/2024 3:19 PM EST Associated Problem(s): History of colon polyps Patient is aware of colonoscopy recall Disclaimer: Portions of this note were dictated by speech recognition. Minor errors in flight test supervisor may be present * Assessment & Plan Note - Clau Zavala APRN - 05/28/2024 3:19 PM EST Associated Problem(s): Family history of colonic polyps Patient is aware of colonoscopy recall * Assessment & Plan Note - Clau Zavala APRN - 05/28/2024 3:19 PM EST Associated Problem(s): Change in bowel function Proceed with stool studies to rule out infectious process If occurs again can consider pelvic floor PT * Assessment & Plan Note - Clau Zavala APRN - 05/28/2024 3:18 PM EST Associated Problem(s): Hemorrhoids Advised to avoid constipation, prolonged sitting or straining on toilet. Rec to try OTC meds for symptomatic relief, such as: hydrocortisone creams, warm sitz baths, witch tahmina, aloe vera cooling gel or lidocaine 3-5% creams Will send referral to colorectal surgery documented in this encounter Plan of Treatment Upcoming Encounters Date Type Department Care Team (Late st Contact Info) Description 07/03/2024 5:00 PM EDT Office Visit [address] [phone] Yakov Holm MD [address] [place] [phone] 10/03/2024 1:00 PM EDT Office Visit [address] [phone] [place] [address] [place] [address] Scheduled Orders Name Type Priority Associated Diagnoses Orde r Schedule C. Difficile Toxin/GDH w/ Reflex to PCR Lab Routine Change in bowel function Ordered: 05/28/2024 Calprotectin, Stool Lab Routine Change in bowel function Ordered: 05/28/2024 Escherichia Coli 0157 Culture Microbiology Routine Change in bowel function Ordered: 05/28/2024 Giardia Antigen, EIA, Stool Lab Routine Change in bowel function Ordered: 05/28/2024 Pancreatic Elastase-1, Stool Lab Routine Change in bowel function Ordered: 05/28/2024 Ova and Parasites Microbiology Routine Change in bowel function Ordered: 05/28/2024 H. pylori Stool Antigen Microbiology Routine Change in bowel function Ordered: 05/28/2024 Scheduled Referrals Name Type Priority Associated Diagnoses Orde r Schedule Amb Referral to Colorectal Surgery Outpatient Referral Routine Hemorrhoids, unspecified hemorrhoid type Ordered: 05/28/2024 documented as of this encounter Visit Diagnoses Diagnosis Family history of colonic polyps- Primary History of colon polyps Change in bowel function Hemorrhoids, unspecified hemorrhoid type documented in this encounter Care Teams President Sales And Marketing Relationship Specialty Start Date End Date Yakov Holm MD [address] [place] [address] PCP - General Internal Medicine 06/01/23 Chiqui Pena DO [address] [place] [address] Obstetrics and Gynecology 09/05/23 documented as of this encounter
== END 2024-06-26 15:18 | disposition home or self-care (01) ==
PROVIDERS: Visit Provider Internal Medicine Rheumatology
DX: M06.09 Rheumatoid arthritis without rheumatoid factor, multiple sites (principal)
CPT/HCPCS: 99214; G2211

== ENCOUNTER 2024-06-26 14:35 | Outpatient (REF) | payer MEDICARE, SELFPAY ==
[2024-06-26 17:42] LABS: MANUAL DIFF FLAG NO
[2024-06-26 18:02] LABS: Basophils Absolute Auto 0.1 X10*3/uL (0.0-0.2); Basophils Percent Auto 1.1 % (0-2); Eosinophils Absolute Auto 0.2 X10*3/uL (0.0-0.4); Hematocrit 37.6 % (37.0-47.0); Hemoglobin 12.1 g/dl (12.0-16.0); Imm Gran Abs Auto 0.01 X10*3/uL (0.00-0.03); Imm Gran Pct Auto 0.2 % (0.0-0.4); Lymphocytes Absolute Auto 1.9 X10*3/uL (1.2-4.9); Lymphocytes Percent Auto 34.6 % (20-40); Mean Corpuscular HGB Conc 32.2 g/dl (31.0-35.0); Mean Corpuscular Hemoglobin 31.1 pg (27.0-33.0); Mean Corpuscular Volume 96.7 fL (80.0-98.0); Monocytes Absolute Auto 0.6 X10*3/uL (0.1-1.2); Monocytes Percent Auto 11.1 % (2-11); Neutrophils Absolute Auto 2.7 x10*3/uL (2.0-8.3); Platelet Count 248 X10*3/uL (160-400); Red Blood Count 3.89 X10*6/uL (4.20-5.50); Red Cell Distribution Width 13.6 % (11.0-16.0); White Blood Count 5.5 X10*3/uL (4.8-10.8)
[2024-06-26 18:17] LABS: Alanine Aminotransferase 11 U/L (0-31); Aspartate Amino Transferase 22 U/L (5-31); C Reactive Protein 0.49 mg/dL (< or = 0.50); Estimated Glomerular Filt Rate > 60
[2024-06-26 19:27] LABS: Erythrocyte Sedimentation Rate 12 MM/HR (0-20)
== END 2024-06-26 14:36 | disposition home or self-care (01) ==
LOC: HO.HKASLDS 14:35
PROVIDERS: Visit Provider Internal Medicine Rheumatology
DX: M06.09 Rheumatoid arthritis without rheumatoid factor, multiple sites (principal); Z79.60 Long term (current) use of unspecified immunomodulators and immunosuppressants; Z79.899 Other long term (current) drug therapy
CPT/HCPCS: 36415; 82565; 84450; 84460; 85025; 85652; 86140; 99212

== ENCOUNTER 2024-10-08 14:22 | Outpatient (AMB) | payer MEDICARE, SELFPAY ==
--- NOTE | 2024-10-08 14:26 | A.OFFVIS_ITS ---
Vital Signs 10/08/24 14:30 Height 5 ft Weight 191 lb BMI 37.3 BP 100/80 Blood Pressure Location Lt brachial Position Sitting Pulse 69 Pulse Source Pulse Oximeter Pulse Oximetry (%) 100 Oxygen Delivery Method Room Air Intake Visit Reasons: 3 Months Intake Note: Patient presents today for follow up on rheumatoid arthritis. Accompanied by: Self / Same As Patient Allergies No Known Allergies Allergy (Verified 10/08/24 14:33) HPI HPI 3 Months: Details: Morning stiffness is hours. She continues to have hand swelling. Foot pain has resolved. No recent infections. [facility] Medical History Restless leg syndrome Neural foraminal stenosis of lumbar spine Lumbar spondylosis Asthma HLD (hyperlipidemia) HTN (hypertension) Surgical History History of section History of toe surgery Hx of cataract surgery History of knee replacement Hx of rotator cuff surgery Family History Father Diabetes Hypertension Mother Diabetes Hypertension Disorder of circulatory system Brother Disorder of circulatory system Social History Alcohol intake: current Alcohol intake frequency: a few times a month Patient Tobacco Use Status: Former Tobacco user Substance Use Type: Marijuana Physical Exam Vital Signs: Last Vital Signs Pulse 69 10/08/24 14:30 BP 100/80 10/08/24 14:30 Pulse Ox 100 10/08/24 14:30 Oxygen Delivery Method Room Air 10/08/24 14:30 BMI result Body Mass Index 37.3 Const Other: General: Comfortable CVS: RRR Respiratory: clear to auscultation bilaterally. Good respiratory effort Skin: No lesions seen MSK: Tender to palpate right MCPs and PIPs. Volar subluxation bilateral MCPs. She has synovitis of bilateral 2nd and 3rd MCPs. Tender bilateral wrists. Normal range of motion of upper extremities. Good range of motion of lower extremities. No MTP tenderness. Assessment & Plan Assessment & Plan (1) Rheumatoid arthritis: Comment: She continues to have synovitis with combination therapy with methotrexate subcutaneous injection and hydroxychloroquine. MTP pain has resolved. We discussed DMARD treatment options for better control of rheumatoid arthritis. She does not want to take more pills. We discussed side effects, benefits and drug monitoring of TNF inhibitors. She prefers Humira. Rheumatology history: Seronegative. Deforming. Methotrexate started 12/2021. Dr. Ross increase dose to 30 mg once weekly without control of rheumatoid arthritis. 03/2024. HCQ 400 mg qd 03/2024-. Code(s): M06.9 - Rheumatoid arthritis, unspecified Category: Medical Qualifiers: Rheumatoid arthritis location: multiple sites Rheumatoid factor presence: without rheumatoid factor Qualified Code(s): M06.09 - Rheumatoid arthritis without rheumatoid factor, multiple sites Plan: Labs for drug monitoring and high-risk medication UTD 09/29/2024. Patient requested PCP to send lab results. Continue MTX subcutaneous injection 25 mg once weekly. Continue folic acid 1 mg daily Humira PA Continue hydroxychloroquine 400 mg daily until Humira is approved. Once approved, she will d/c HCQ. She will need nurse teaching visit for Humira and labs 1 month after starting Humira Return to clinic in 3 months (2) Other halfway (current) drug therapy: Code(s): Z79.899 - Other intermediate school teacher (current) drug therapy Category: Medical Plan: See above Orders: Orders Aspartate Amino Transferase Today M06.09 - Rheumatoid arthritis without rheumatoid factor, multiple sites, Z79.899 - Other halfway (current) drug therapy Creatinine Today M06.09 - Rheumatoid arthritis without rheumatoid factor, multiple sites, Z79.899 - Other intermediate school teacher (current) drug therapy Erythrocyte Sedimentation Rate Today M06.09 - Rheumatoid arthritis without rheumatoid factor, multiple sites, Z79.899 - Other intermediate school teacher (current) drug therapy Complete Blood Count Man Dif Today M06.09 - Rheumatoid arthritis without rheumatoid factor, multiple sites, Z79.899 - Other halfway (current) drug therapy Alanine Aminotransferase Today M06.09 - Rheumatoid arthritis without rheumatoid factor, multiple sites, Z79.899 - Other intermediate school teacher (current) drug therapy C Reactive Protein Today M06.09 - Rheumatoid arthritis without rheumatoid factor, multiple sites, Z79.899 - Other halfway (current) drug therapy Medications: New adalimumab (Humira(CF) Pen) First dose administration in office. Patient needs to schedule nurse teaching visit. Labs needed 4 weeks after starting Humira. 40 mg (0.4 mL) subcut Q14D 2 ea 2RF Discontinued prednisone Take 4 tablets daily 5 days, 3 tablets daily 5 days, 2 tablets daily 5 days, 1 tablet daily 5 days then stop. Take prednisone with food Discontinued Reason: Doctor's Order 5 mg PO DIRECTED 50 tabs 0RF methylprednisolone (Medrol (Mukund)) Discontinued Reason: Doctor's Order PO PER PKG DIR 21 ea 0RF pain M48.061 - Spinal stenosis, lumbar region without neurogenic claudication, M54.16 - Radiculopathy, lumbar region Coding Level of Care Code Est Pt Level 4 (69055) Complex EM visit Add On G2211 Diagnoses Rheumatoid arthritis of multiple sites with negative rheumatoid factor M06.09 Rheumatoid arthritis location: multiple sites Rheumatoid factor presence: without rheumatoid factor Other intermediate school teacher (current) drug therapy Z79.899
[2024-10-08 14:30] VITALS: BP 100/80; PULSE 69; O2SAT 100; BMI 37.3
--- OUTSIDE RECORDS SUMMARY | 2024-10-08 16:30 | XMS_ITS | Encounter Summary ---
Author Organization [facility] Address [address] [place] [address] Care Team Providers Care Lining Caser Name Role Phone Yakov Holm MD Primary Care Provider [phone] Chiqui Pena DO Unavailable [phone] Yakov Holm MD Unavailable [phone] Encounter Details Date Type Department Care Team (Late st Contact Info) Description 07/04/2023 Scanned Document [facility] PRIMARY CARE SCAN Primary Care, Scan Social [...] Date Recorded PHQ-2 Total Score 0 06/01/2023 Comments No Sex and Gender Information Value Date Recorded Sex Assigned at Female 11/01/2022 11:18 AM EDT Legal Sex Female 11:20 AM EDT Gender Identity Female 11/01/2022 11:18 AM EDT Sexual Orientation Heterosexual (straight) 11/01 11:18 AM EDT documented as of this encounter Plan of Treatment Upcoming Encounters Date Type Department Care Team (Late st Contact Info) Description 04/03/2025 3:30 PM EST Office Visit [facility] [address] [place] [address] Yakov Holm MD [address] [place] [address] documented as of this encounter Visit Diagnoses Not on filedocumented in this encounter Care Teams Lining Caser Relationship Specialty Start Date End Date Yakvo Holm MD [address] [place] [address] PCP - General Internal Medicine 06/01/23 Yakov Holm MD [address] [place] [address] PCP - [place] [employer] Attributed 06/22/23 11/21/23 Chiqui Pena DO [address] [place] [address] Obstetrics and Gynecology 09/05/23 documented as of this encounter
== END 2024-10-08 15:07 | disposition home or self-care (01) ==
LOC: HO.RHES 14:23
PROVIDERS: PCP Internal Medicine; Visit Provider Internal Medicine Rheumatology
DX: M06.09 Rheumatoid arthritis without rheumatoid factor, multiple sites (principal); Z79.899 Other long term (current) drug therapy
CPT/HCPCS: 99214; G2211

== ENCOUNTER → 2024-10-08 14:22 | Outpatient (BNVA) | payer MEDICARE, SELFPAY | PROVIDERS: PCP Internal Medicine; Visit Provider Internal Medicine Rheumatology | DX: M06.09 Rheumatoid arthritis without rheumatoid factor, multiple sites (principal); Z79.899 Other long term (current) drug therapy | CPT/HCPCS: 99212 ==

== ENCOUNTER 2025-01-14 13:47 | Outpatient (REF) | payer MEDICARE, SELFPAY ==
--- OUTSIDE RECORDS SUMMARY | 2025-01-14 17:13 | XMS_ITS | Data Portability ---
Author Organization [facility]hal, [facility] Address [address] [place] [address] Care Team Providers Care Panel Raiser Operator Name Role Phone SOHAIL MAY Primary Care Provider [phone] Assessment No assessment recorded. Plan of Treatment Reminders Order Date Submit Date Provider Last Modified By Organization Details Last Modified Time Details Appointments None record ed. Lab None record ed. Referral None record ed. Procedures None record ed. Surgeries None record ed. Imaging None record ed. Medication Orders None record ed. Patient TargetsNo targets recorded. Patient InstructionsNo instructions recorded. Reason for Referral None Reported. Results Created Date Observation Date Name Description Value Unit Range Abnormal Flag Note LastModifiedBy Organization Detail LastModifiedTime 12/04/1912/01/2024 imagi ng/di agnos tic resul t No observ ation record ed. [facility] [address], [address], 12/05/2024 15:47:45 Result Notes None recorded. Problems Name Problem SNOMED Code Status Onset Date Resolution Date Notes Provider Name and Address Organization Details Recorded Time Increased frequency of urination 075331007 Active 2024 FLOR mcknight [facility] 5 08:17:14 Urge incontinence of urine 69234450 Active 2024 FLOR mcknight [facility] 5 08:29:05 Urgent desire to urinate 35977263 Active 2024 Jey Lindsay MD [address] [place], [address], [place] [facility] 16:24:56 Problem Notes None recorded. Procedures Surgical History Date Name Laterality Status Provider Name and Address Organization Details Recorded Time 12/04/2024 [facility] completed Jey Lindsay MD [address] [place], [address], [employer] 12/04/2024 16:31:37 Imaging Results None recorded. Procedure Notes None recorded. Medical Equipment None Reported. Allergies Allergen ID Allergen Name Allergen Category Reaction Reaction Severity Criticality Documentation Date Start Date Code Code System Note Provider Name and Address Organization Details Recorded Time 480053 Bactrim medicatio n rash Not available Not available 11/27/2024 [id number] 9 RxNorm Mary Ann Lerner roxanna, [facility] 13:37:46 Vitals None Recorded Social History None recorded. Functional Status None recorded. Mental Status None recorded. Family History Nothing Reported. Medical History No medical history recorded. Gynecological HistoryNo gynecological history recorded. Obstetrics History GPAL:G 0 P 0 0 0 0 Past Encounters Encounter ID Performer Location Encounter Start Date Encounter Closed Date Diagnosis/Indication Diagnosis SNOMED-CT Code Diagnosis ICD10 Code Diagnosis IMO Codes Diagnosis Note [id number] Jey Lindsay MD [facility] [address] [place] [address] 12/03/2024 09:20:57 12/03/2024 09:46:31 Urge incontinence of urine 22260527 N39.41 602617 - - Pt has tried and failed one or more of the following treatments and/or strategies : behavioral modificati ons, oral medication s, PTNS, and/or Botox. He/She is now opting for full implantati on of SNM generator. - I discussed the role of sacral neuromodul ation (SNM) in treating incomplete bladder emptying and/or urinary frequency and urgency. I explained how SNM may reduce the frequency of how often a patient needs to perform CIC. However, I would not expect SNM to replace CIC, although a patient may see an improvemen t in their ability to empty.- I reviewed stages 1 and 2 of sacral neuromodul ation. I explained to pt that the device will be permanentl y placed if he/she sees at least a 50% improvemen t after a trial. Pt has already passed her initial trial.-I reviewed SNM's expected benefits and risks. Risks include bleeding, infection, injury to surroundin g structure, hematoma, attenuatio n of effects, pain at the generator site, failure to treat and/or cure and need for additional procedures .- Pt consented to stage 2 implantati on and will be scheduled for OR. [id number] Jey Lindsay MD [facility] [address] [place] [address] [address] [place] [address] 12/04/2024 08:30:59 12/04/2024 15:31:40 Urgent desire to urinate 88015458 R39.15 [id number] Health Concerns Section Related Observation LastModified by Organization Detai ls LastModified Time None Recorded Concern Status LastModified by Organization Details LastModified Time None Recorded Advance Directives Directive None Recorded Payers Insurance Date Sequence Insurance Name Policy Number Policy Roberts Covered Member ID Roberts Member ID Guarantor Name 12/09/2024 1 [place]ARE [place] Gertrude Fitzpatrick [id number] Gertrude Fitzpatrick 12/09/2024 2 [place] [id number] Gertrude Fitzpatrick [id number] Gertrude Fitzpatrick Notes Date Note Type Note Provider Name and Address Organization Details Recorded Time 12/03/2024 text/html ROS as noted in the HPI 64 y/o female who was referred here for urinary incontinence. I made the decision to obtain outside records. Based on my review of the referring provider's notes, it appears the pt underwent a complete bladder work-up at [facility]. Her UDS demonstrated no leak with cough, bladder capacity of 555 cc, sensation of urge at 536 cc. She appears to be on Vesicare 10 mg daily. She presents today to sign consent for SNM. She successfully passed a trial and she is now proceeding with full implantation. On further review of records from 2019, it appears she underwent bladder mesh placement for DAVID. She developed urinary incontinence following placement of the mesh. She has also failed Botox injections. Pt underwent a renal US on 09/13/22 for a history of UTIs. Imaging was unremarkable. Her bladder diary demonstrated a total of 40 oz voided over 4 voids. Jey Lindsay MD [address] [place], [address], [place] [facility] 12/04/2024 09:30:19 OBGyn Episode No OBEpisode recorded.
[2025-01-14 18:19] LABS: Baso%MD 0.5 %; Eos%MD 1.3 %; Hematocrit 42.3 % (37.0-47.0); Hemoglobin 13.9 g/dl (12.0-16.0); IG%MD 0.2 %; Lymph%MD 37.0 %; Mean Corpuscular HGB Conc 32.9 g/dl (31.0-35.0); Mean Corpuscular Hemoglobin 31.2 pg (27.0-33.0); Mean Corpuscular Volume 94.8 fL (80.0-98.0); Mono%MD 7.2 %; NRBC Abs Auto 0.000 X10*3/uL (0.0-0.012); NRBC Pct Auto 0.0 /100WBC (0.0-0.2); Neut%MD 53.8 %; Platelet Count 231 X10*3/uL (160-400); Red Blood Count 4.46 X10*6/uL (4.20-5.50); White Blood Count 5.6 X10*3/uL (4.8-10.8)
[2025-01-14 18:57] LABS: Alanine Aminotransferase 18 U/L (0-31); Aspartate Amino Transferase 34 U/L (5-31); Estimated Glomerular Filt Rate > 60
[2025-01-14 19:20] LABS: Atypical Lymph Absolute Manual 0.1 x10*3/uL; Atypical Lymphs Percent Manual 1 % (0-6); Basophils Abs Manual 0.1 X10*3/uL (0.0-0.2); Basophils Percent Manual 1 % (0-2); Eosinophils Absolute Manual 0.1 X10*3/uL (0.0-0.4); Eosinophils Percent Manual 2 % (0-4); Lymphocytes Absolute Manual 2.1 X10*3/uL (1.2-4.9); Lymphocytes Percent Manual 37 % (20-40); Monocytes Absolute Manual 0.1 X10*3/uL (0.1-1.2); Monocytes Percent Manual 1 % (2-11); Neutrophils Percent Manual 58 % (45-73)
[2025-01-14 19:22] LABS: Band Neutrophils Percent 0 % (3-5); Neutrophils Absolute Manual 3.2 X10*3/uL (2.0-8.3); RBC Morphology NORMAL
== END 2025-01-14 13:48 | disposition home or self-care (01) ==
LOC: HO.HKASLDS 13:47
PROVIDERS: PCP Internal Medicine; Visit Provider Internal Medicine Rheumatology
DX: M06.09 Rheumatoid arthritis without rheumatoid factor, multiple sites (principal); M18.0 Bilateral primary osteoarthritis of first carpometacarpal joints; Z79.899 Other long term (current) drug therapy
CPT/HCPCS: 20600; 36415; 82565; 84450; 84460; 85007; 85027; 85652; 86140; 99212; J2003; J3301

== ENCOUNTER 2025-01-14 13:47 | Outpatient (AMB) | payer MEDICARE, SELFPAY ==
[2025-01-14 13:52] VITALS: BP 122/80; PULSE 98; O2SAT 98; BMI 37.8
--- NOTE | 2025-01-14 13:52 | A.OFFVIS_ITS ---
Vital Signs 01/14/25 13:52 Height 5 ft Weight 193 lb 9.054 oz BMI 37.8 BP 122/80 Blood Pressure Location Lt brachial Pulse 98 Pulse Source Pulse Oximeter Pulse Oximetry (%) 98 Oxygen Delivery Method Room Air Intake Visit Reasons: 3 Months Intake Note: Patient presents today for follow up on rheumatoid arthritis Accompanied by: Self / Same As Patient Allergies sulfamethoxazole (From Bactrim) Allergy (Mild, Verified 01/14/25 13:54) Rash trimethoprim (From Bactrim) Allergy (Mild, Verified 01/14/25 13:54) Rash HPI HPI 3 Months: Details: She is tolerating Humira. Denies any new infections. She is waking up with hand pain and swelling. Hand pain is lasting all day. Right foot is swollen but she does not have any pain in her feet. [facility] Medical History (Updated 01/14/25 @ 14:30 by Konstantin Chin MD) Restless leg syndrome Neural foraminal stenosis of lumbar spine Lumbar spondylosis Asthma HLD (hyperlipidemia) HTN (hypertension) Surgical History History of section History of toe surgery Hx of cataract surgery History of knee replacement Hx of rotator cuff surgery Family History Father Diabetes Hypertension Mother Diabetes Hypertension Disorder of circulatory system Brother Disorder of circulatory system Social History Alcohol intake: current Alcohol intake frequency: a few times a month Patient Tobacco Use Status: Former Tobacco user Substance Use Type: Marijuana Physical Exam Vital Signs: Last Vital Signs Pulse 98 01/14/25 13:52 BP 122/80 01/14/25 13:52 Pulse Ox 98 01/14/25 13:52 Oxygen Delivery Method Room Air 01/14/25 13:52 BMI result Body Mass Index 37.8 Const Other: General: Comfortable CVS: RRR Respiratory: clear to auscultation bilaterally. Good respiratory effort Skin: No lesions seen MSK: Tender to palpate right 2-3rd MCPs with synovitis present. Volar subluxation bilateral MCPs. Normal range of motion of upper extremities. Good range of motion of lower extremities. Synovitis right 2nd MTP and midfoot without tenderness on palpation. Office Procedures AMB Joint Injection/Aspiration Joint Injection/Aspiration Details: Right 2nd and 3rd MCP Prep: site was prepped using aseptic technique Injected into each site: 10 mg of, Kenalog, with 0.25 mL of and 1% plain lidocaine Procedure: Informed verbal consent was obtained. The patient tolerated the p rocedure well. Postprocedure protocol was discussed with patient. Coding 17103 - Small Joint Procedure code (CPT) selection complete AMB Joint Injection/Aspiration Coding 92726 - Small Joint Procedure code (CPT) selection complete Office Meds lidocaine (PF) 10 mg/mL (1 %) injection solution Performing Provider: Konstantin Chin MD Performing Location: [facility] [place] [facility] Administered by: Suha Solis RN on 01/14/25 14:30 Dose Route Admin Location Dispensed Lot Number Expiration Date [facility] Digital Printer Operator 0.25 mL Infiltration 2 mL [id number] 09/19/26 18169-894-98 [employer] Total Dispensed Waste 2 mL 87.5 % Kenalog 40 mg/mL suspension for injection Performing Provider: Konstantin Chin MD Performing Location: [facility] [place] [facility] Administered by: Suha Solis RN on 01/14/25 14:30 Dose Route Admin Location Dispensed Lot Number Expiration Date [facility] Digital Printer Operator 10 mg intra-articular 1 mL [id number] 10/20/26 [address]-6 A [employer] Total Dispensed Waste 1 mL 75 % lidocaine (PF) 10 mg/mL (1 %) injection solution Performing Provider: Konstantin Chin MD Performing Location: [facility] [place] [facility] Administered by: Suha Solis RN on 01/14/25 14:30 Dose Route Admin Location Dispensed Lot Number Expiration Date [facility] Digital Printer Operator 0.25 mL Infiltration 2 mL [id number] 09/19/26 91589-212-48 [employer] Total Dispensed Waste 2 mL 87.5 % Kenalog 40 mg/mL suspension for injection Performing Provider: Konstantin Chin MD Performing Location: [facility] [place] [facility] Administered by: Suha Solis RN on 01/14/25 14:30 Dose Route Admin Location Dispensed Lot Number Expiration Date [facility] Digital Printer Operator 10 mg intra-articular 1 mL [id number] 10/20/26 [address]-3 [employer] Total Dispensed Waste 1 mL 75 % Assessment & Plan Assessment & Plan (1) Rheumatoid arthritis: Comment: She continues to have synovitis in right hand and right foot. We discussed next steps in management of acute pain. Patient agrees to intra-articular cortisone injection in her right 2nd and 3rd MCP. Avoiding prednisone due to adverse effect of weight gain with prednisone used in March 2024. She recently started Humira with benefit. Need more time for full benefit. Rheumatology history: Seronegative. Deforming. Methotrexate started 12/2021. Dr. Ross increase dose to 30 mg once weekly without control of rheumatoid arthritis. 03/2024. HCQ 400 mg qd 03/2024-10/2024 switched to Humira 10/2024-. Code(s): M06.9 - Rheumatoid arthritis, unspecified Category: Medical Qualifiers: Rheumatoid arthritis location: multiple sites Rheumatoid factor presence: without rheumatoid factor Qualified Code(s): M06.09 - Rheumatoid arthritis without rheumatoid factor, multiple sites Plan: Labs for drug monitoring and high-risk medication ordered Continue MTX subcutaneous injection 25 mg once weekly. Continue folic acid 1 mg daily Continue Humira 40 mg subcutaneous injection every 14 days Patient received intra-articular cortisone injection right 2nd and 3rd MCP Return to clinic in 3 months (2) Other mcfp (current) drug therapy: Code(s): Z79.899 - Other computer terminal operator (current) drug therapy Category: Medical Plan: See above (3) Osteoarthritis of carpometacarpal (CMC) joint of both thumbs: Code(s): M18.0 - Bilateral primary osteoarthritis of first carpometacarpal joints Category: Medical Plan: OT ordered with custom CMC splints Try paraffin wax bath Return to clinic in 3 months Orders: Orders AMB Joint Injection/Aspiration Today M06.09 - Rheumatoid arthritis without rheumatoid factor, multiple sites AMB Joint Injection/Aspiration Today M06.09 - Rheumatoid arthritis without rheumatoid factor, multiple sites OT Evaluation and Treatment Today M18.0 - Bilateral primary osteoarthritis of first carpometacarpal joints Medications: New arm brace (Wrist Brace) As directed Bilateral custom CMC splints Dx: cmc osteoarthritis 2 ea 0RF Coding Level of Care Code Est Pt Level 4 (36131) Complex EM visit Add On G2211 Diagnoses Rheumatoid arthritis of multiple sites with negative rheumatoid factor M06.09 Rheumatoid arthritis location: multiple sites Rheumatoid factor presence: without rheumatoid factor Other mcfp (current) drug therapy Z79.899 Osteoarthritis of carpometacarpal (CMC) joint of both thumbs M18.0 CPT Codes Coding - 10594 - Small joint: 64287 - Small Joint ([id number]) Coding - 91813 - Small joint: 53064 - Small Joint ([id number])
--- OUTSIDE RECORDS SUMMARY | 2025-01-14 16:17 | XMS_ITS | Encounter Summary ---
Author Organization [facility] Address [address] [place] [address] Care Team Providers Care Training Associate Name Role Phone Yakov Holm MD Primary Care Provider [phone] Chiqui Pena DO Unavailable [phone] Yakov Holm MD Unavailable [phone] Encounter Details Date Type Department Care Team (Late st Contact Info) Description 07/16/2023 Scanned Document [facility] Pulmonary [place] [address] [place] [address] Zhang Vides, DO [address] [address] Social History Tobacco Use Types Packs/Day Years [...] Care Team (Late st Contact Info) Description 01/20/2025 3:50 PM EDT Office Visit [facility] Neurology [place] [facility] [address] [place] [address] Abbie Bella, VANESA 280 [facility] 102 [place] [address] 04/03/2025 3:30 PM EST Office Visit [facility] [address] [place] [address] Yakov Holm MD [address] [place] [address] documented as of this encounter Visit Diagnoses Not on filedocumented in this encounter Care Teams Training Associate Relationship Specialty [place] [address] [place] [address] PCP - General Internal Medicine 06/01/23 Yakov Holm MD [address] [place] [address] PCP - [place] Commercial Attributed 06/22/23 11/21/23 Chiqui Pena DO [address] [place] [address] Obstetrics and Gynecology 09/05/23 documented as of this encounter
--- OUTSIDE RECORDS SUMMARY | 2025-01-14 16:17 | XMS_ITS | Encounter Summary ---
Author Organization [facility] Address [address] [place] [address] Care Team Providers Care Patient Svcs Mgr Name Role Phone Yakov Holm MD Primary Care Provider Chiqui Pena DO Unavailable [phone] Yakov Holm MD Unavailable [phone] Encounter Details Date Type Department Care Team (Late st Contact Info) Description 11/14/2023 Scanned Document [facility] [address] [facility] [address] [place] [phone] Clau Zavala APRN 428 [facility] Michael [address] [place] [address] Social History Tobacco Use Types Packs/Day Years Used Date Smoking Tobacco: Former Cigarettes 6 - 1985 Smokeless Tobacco: Never Alcohol Use [...] Description 01/20/2025 3:50 PM EDT Office Visit [facility] Neurology [place] 280 [facility] 102 [place] [address] Abbie Bella, VELVET WEAVER 280 [facility] 102 [place] [address] 04/03/2025 3:30 PM EST Office Visit [facility] [address] [place] [address] Yakov Holm MD [address] [place] [address] documented as of this encounter Visit Diagnoses Not on filedocumented in this encounter Care Teams Patient Svcs Mgr Relationship Specialty [place] [address] [place] [address] PCP - General Internal Medicine 06/01/23 Yakov Holm MD [address] [place] [address] PCP - [place] Commercial Attributed 06/22/23 11/21/23 Chiqui Pena DO [address] [place] [address] Obstetrics and Gynecology 09/05/23 documented as of this encounter
--- OUTSIDE RECORDS SUMMARY | 2025-01-14 16:17 | XMS_ITS | Encounter Summary ---
Author Organization [facility] Address [address] [place] [address] Care Team Providers Care Body Shop Floorperson Name Role Phone Yakov Holm MD Primary Care Provider [phone] Chiqui Pena DO Unavailable [phone] Encounter Details Date Type Department Care Team (Late st Contact Info) Description 12/23/2024 Scanned Document [facility] UROLOGY SCAN Urology, Scan Social History Tobacco Use Types Packs/Day Years Used Date Smoking Tobacco: Former Cigarettes 0 04/23/1975 - 04/23/1985 Smokeless Tobacco: Never Alcohol Use Standard Drinks/Week Comments Yes 2 (1 standard drink = 0.6 oz pur e alcohol) 1-2 times weekly 1-2 glasses [facility] Utilities Answer Date Recorded In the past 12 months has th e electric, gas, oil, or water company threatened to shut off services in your home? No 10/03/2024 Social Connection and Isolation Panel [NHANES] A nswer Date Recorded In a typical week, how many times do you talk on the phone with family, friends, or neighbors? Once a week 10/03/2024 Frequency of Social Gatherings with Friends and Family Not on file 10/03/2024 Attends Judaism Services Not on file 10/03 Active Member of Clubs or Organizations Not on f ile 10/03/2024 Attends Club or Organization Meetings Not on bernard e 10/03/2024 Marital Status Not on file 10/03/2024 AUDIT-C Answer Date Recorded Q1: How often do you have a drink containing alc ohol? 2-3 times a week 10/03/2024 Q2: How many drinks containi ng alcohol do you have on a typical day when you are drinking? 1 or 2 10/03/2024 Frequency of Binge Drinking Not on file 09/21 PHQ-2 Answer Date Recorded PHQ-2 Total Score 0 10/03/2024 Hunger Vital Sign Answer Date Recorded Within the past 12 months, y ou worried that your food would run out before you got the money to buy more. Never true 10/04/19 25 Within the past 12 months, t he food you bought just didn't last and you didn't have money to get more. Never true 10/03/2024 PRAPARE - Transportation Answer Date Re corded In the past 12 months, has l ack of transportation kept you from medical appointments or from getting medications? No 09/21 In the past 12 months, has l ack of transportation kept you from meetings, work, or from getting things needed for daily living? No 10/03/2024 Housing Stability Vital Sign Answer Michael e Recorded In the last 12 months, was t here a time when you were not able to pay the mortgage or rent on time? No 10/03/2024 In the past 12 months, how m any times have you moved where you were living? 0 10/03/2024 At any time in the past 12 m [facility], were you homeless or living in a retirement (including now)? No 10/03/2024 Education Answer Date Recorded What is the highest level of school you have completed or the highest degree you have received? Master's degree (e.g., MA, MS, Gilmer, MEd, DIRECTOR OF OUTREACH, DANY) 10/03/2024 Comments No Sex and Gender Information Value [...] Description 01/20/2025 3:50 PM EDT Office Visit [facility] Neurology [address] [address] Abbie Bella APRN [address] [place] [address] 04/03/2025 3:30 PM EST Office Visit [facility] [address] [place] [address] Yakov Holm MD [address] [place] [address] documented as of this encounter Visit Diagnoses Not on filedocumented in this encounter Care Teams Body Shop Floorperson Relationship Specialty Start Date End Date Yakov Holm MD [address] [place] [address] PCP - General Internal Medicine 06/01/23 Chiqui Pena DO [address] [place] [address] Obstetrics and Gynecology 09/05/23 documented as of this encounter
--- OUTSIDE RECORDS SUMMARY | 2025-01-14 16:17 | XMS_ITS | Encounter Summary ---
Author Organization [facility] Address [address] [place] [address] Care Team Providers Care Computer Trainer Name Role Phone Yakov Holm MD Primary Care Provider Chiqui Pena DO Unavailable [phone] Reason for Visit * Reason Onset Date Comments Medication Refill 01/13/2025 Encounter Details Date Type Department Care Team (Late st Contact Info) Description 01/13/2025 Telephone [facility] Neurology [place] [address] [place] [address] Zahra Nolan MD 280 [facility] [address] [place] [address] Medication Refill Social History Tobacco Use Types Packs/Day Years Used Date Smoking Tobacco: Former Cigarettes 0 04/23/1975 - 04/23/1985 Smokeless Tobacco: Never Alcohol Use Standard Drinks/Week Comments Yes 2 (1 standard drink = 0.6 oz pur e alcohol) 1-2 times weekly 1-2 glasses [facility] Utilities Answer Date Recorded In the past 12 months has [employer] electric, gas, oil, or water company threatened to shut off services in your home? No 10/03/2024 Social Connection and Isolation Panel [NHANES] A nswer Date Recorded In a typical week, how many times do you talk on the phone with family, friends, or neighbors? Once a week 10/03/2024 Frequency of Social Gatherings with Friends and Family Not on file 10/03/2024 Attends Cheondoism Services Not on file 10/03 Active Member [...] any time in the past [address] [facility], were you homeless or living in a longterm (including now)? No 10/03/2024 Education Answer Date Recorded What is the highest level of school you have completed or the highest degree you have received? Master's degree (e.g., MA, MS, Gilmer, MEd, BEHAVIOUR SUPPORT TEACHER, DANY) 10/03/2024 Comments No Sex and Gender [...] Description 01/20/2025 3:50 PM EDT Office Visit [facility] Neurology [place] 280 [facility] 102 [place] [address] Abbie Bella, MEETING PLANNER 280 [facility] 102 [place] [address] 04/03/2025 3:30 PM EST Office Visit [facility] [address] [place] [address] Yakov Holm MD [address] [place] [address] documented as of this encounter Visit Diagnoses Not on filedocumented in this encounter Care Teams Computer Trainer Relationship Specialty Start Date End Date Yakov Holm MD [address] [place] [address] PCP - General Internal Medicine 06/01/23 Chiqui Pena DO [address] [place] [address] Obstetrics and Gynecology 09/05/23 documented as of this encounter
--- OUTSIDE RECORDS SUMMARY | 2025-01-14 16:17 | XMS_ITS | Encounter Summary ---
Author Organization [facility] Address [address] [place] [address] Care Team Providers Care Commercial Pest Control Representative Name Role Phone Yakov Holm MD Primary Care Provider [phone] Chiqui Pena DO Unavailable [phone] Yakov Holm MD Unavailable [phone] Encounter Details Date Type Department Care Team (Late st Contact Info) Description 11/14/2023 Scanned Document [facility] [address] [facility] [address] [place] [address] Clau Zavala APRN 428 [facility] Michael [address] [place] [address] Social History Tobacco Use Types Packs/Day Years [...] Description 01/20/2025 3:50 PM EDT Office Visit [facility] Neurology [place] 280 [facility] 102 [place] [address] Abbie Bella, OVEN PRESS TENDER 280 [facility] 102 [place] [address] 04/03/2025 3:30 PM EST Office Visit [facility] [address] [place] [address] Yakov Holm MD [address] [place] [address] documented as of this encounter Visit Diagnoses Not on filedocumented in this encounter Care Teams Commercial Pest Control Representative Relationship Specialty [place] [address] [place] [address] PCP - General Internal Medicine 06/01/23 Yakov Holm MD [address] [place] [address] PCP - [place] Commercial Attributed 06/22/23 11/21/23 Chiqui Pena DO [address] [place] [address] Obstetrics and Gynecology 09/05/23 documented as of this encounter
--- OUTSIDE RECORDS SUMMARY | 2025-01-14 16:17 | XMS_ITS | Encounter Summary ---
Author Organization [facility] Address [address] [place] [address] Care Team Providers Care Wash Oil Pump Operator Name Role Phone Jason Erwin Primary Care Provider [phone] Jason Seth MD Primary Care Provider [phone] Yakov Holm MD Primary Care Provider [phone] Chiqui Pena DO Unavailable [phone] Yakov Holm MD Unavailable [phone] Reason for Visit * Reason Comments Appointment Encounter Details Date Type Department Care Team (Late st Contact Info) Description 04/12/2023 Telephone [facility] [address] [place] [address] Jason Erwin [address] [place], [place] Appointment Social History Tobacco Use Types [...] more drinks on one occasion? Never 04/04/2023 Comments Unknown Sex and Gender Information Value [...] Description 01/20/2025 3:50 PM EDT Office Visit [facility] Neurology [address] [address] Abbie eBlla APRN [address] [place] [address] 04/03/2025 3:30 PM EST Office Visit [address] [phone] Yakov Holm MD [address] [place] [address] documented as of this encounter Visit Diagnoses Not on filedocumented in this encounter Care Teams Wash Oil Pump Operator Relationship Specialty Start Date End Date Jason Erwin [address] PCP - General Internal Medicine 12/12/22 04/18/23 Jason Seth MD [address] [address] PCP - General 04/19/23 05/31/23 Yakov Holm MD [address] [place] [address] PCP - General Internal Medicine 06/01/23 Yakov Holm MD [address] [place] [address] PCP - [place] Commercial Attributed 06/22/23 11/21/23 Chiqui Pena DO [address] [place] [address] Obstetrics and Gynecology 09/05/23 documented as of this encounter
--- OUTSIDE RECORDS SUMMARY | 2025-01-14 16:17 | XMS_ITS | Encounter Summary ---
Author Organization [facility] Address [address] [place] [address] Care Team Providers Care Senior Project Manager Engineering Name Role Phone Yakov Holm MD Primary Care Provider [phone] Chiqui Pena DO Unavailable [phone] Encounter Details Date Type Department Care Team (Late st Contact Info) Description 2023 Scanned Document [address] [phone] Yakov Holm MD [address] [place] [address] Social History Tobacco Use Types Packs/Day Years [...] Description 01/20/2025 3:50 PM EDT Office Visit [facility] Neurology [place] 280 [facility] 102 [place] [address] Abbie Bella, VANESA 280 [facility] 102 [place] [address] 04/03/2025 3:30 PM EST Office Visit [facility] [address] [place] [address] Yakov Holm MD [address] [place] [address] documented as of this encounter Visit Diagnoses Not on filedocumented in this encounter Care Teams Senior Project Manager Engineering Relationship Specialty [place] [address] [place] [address] PCP - General Internal Medicine 06/01/23 Chiqui Pena DO [address] [place] [address] Obstetrics and Gynecology 09/05/23 documented as of this encounter
--- OUTSIDE RECORDS SUMMARY | 2025-01-14 16:17 | XMS_ITS | Encounter Summary ---
Author Organization [facility] Address [address] [place] [address] Care Team Providers Care Liquor Clerk Name Role Phone Yakov Holm MD Primary Care Provider [phone] Chiqui Pena DO Unavailable [phone] Yakov Holm MD Unavailable [phone] Encounter Details Date Type Department Care Team (Late st Contact Info) Description 07/04/2023 Scanned Document [facility] PRIMARY CARE SCAN Primary Care, Scan [...] Description 01/20/2025 3:50 PM EDT Office Visit [facility] Neurology [place] 280 [facility] 102 [place] [address] Shayne AbbieVANESA 280 [facility] Michael [address] [place] [address] 04/03/2025 3:30 PM EST Office [facility] [address] [place] [address] [place] [address] [place] [address] documented as of this encounter Visit Diagnoses Not on filedocumented in this encounter Care Teams Liquor Clerk Relationship Specialty Start Date End Date Yakov Holm MD [address] [place] [address] PCP - General Internal Medicine 06/01/23 Yakov Holm MD [address] [place] [address] PCP - [place] Commercial Attributed 06/22/23 11/21/23 Chiqui Pena DO [address] [place] [address] Obstetrics and Gynecology 09/05/23 documented as of this encounter
--- OUTSIDE RECORDS SUMMARY | 2025-01-14 16:17 | XMS_ITS | Encounter Summary ---
Author Organization [facility] Address [address] [place] [address] Care Team Providers Care Silo Man Name Role Phone Yakov Holm MD Primary Care Provider [phone] Chiqui Pena DO Unavailable [phone] Encounter Details Date Type Department Care Team (Late Contact Info) Description 05/19/2024 Scanned Document [facility] UROLOGY SCAN Urology, Scan Social History Tobacco [...] Encounters Date Type Department Care Team (Late Contact Info) Description 01/20/2025 3:50 PM EDT Office Visit [facility] Neurology [place] 280 [facility] [address] [place] [address] Abbie Bella APRN 280 [facility] 102 [place] [address] 04/03/2025 3:30 PM EST Office Visit [facility] [address] [place] [address] [place] [address] [place] [address] documented as of this encounter Visit Diagnoses Not on filedocumented in this encounter Care Teams Silo Man Relationship Specialty Start Date End Date Yakov Holm MD [address] [place] [address] PCP - General Internal Medicine 06/01/23 Chiqui Pena DO [address] [place] [address] Obstetrics and Gynecology 09/05/23 documented as of this encounter
--- OUTSIDE RECORDS SUMMARY | 2025-01-14 16:17 | XMS_ITS | Encounter Summary ---
Author Organization [facility] Address [address] [place] [address] Care Team Providers Care Packing House Supervisor Name Role Phone Jason Erwin Primary Care Provider Jason Seth MD Primary Care Provider [phone] Yakov Holm MD Primary Care Provider [phone] Chiqui Pena DO Unavailable [phone] Yakov Holm MD Unavailable [phone] Encounter Details Date Type Department Care Team (Late st Contact Info) Description 04/11/[address] [facility] NEUROSURGERY SCAN Neurosurgery, Scan Social History [...] Description 01/20/2025 3:50 PM EDT Office Visit [facility] Neurology [place] 280 [facility] 102 [place] [address] Abbie Bella, LEATHER FLESHER 280 [facility] 102 [place] [address] 04/03/2025 3:30 PM EST Office Visit [facility] 1559 [place] [address] Yakov Holm MD [address] [place] [address] documented as of this encounter Visit Diagnoses Not on filedocumented in this encounter Care Teams Packing House Supervisor Relationship Specialty Start Date End Date Jason Erwin [address] PCP - General Internal Medicine 12/12/22 04/18/23 Jason Seth MD [address] [address] PCP - General 04/19/23 05/31/23 Yakov Holm MD [address] [place] [address] PCP - General Internal Medicine 06/01/23 Yakov Holm MD [address] [place] [address] PCP - [place] Commercial Attributed 06/22/23 11/21/23 Chiqui Pena DO [address] [place] [address] Obstetrics and Gynecology 09/05/23 documented as of this encounter
--- OUTSIDE RECORDS SUMMARY | 2025-01-14 16:17 | XMS_ITS | Encounter Summary ---
Author Organization [facility] Address [address] [place] [address] Care Team Providers Care Intelligence Clerk Name Role Phone Yakov Holm MD Primary Care Provider [phone] Encounter Details Date Type Department Care Team (Late st Contact Info) Description 11/14/2024 Lab Requisition [facility] Lab 299 [facility] [place] [phone] Ronal Herrera MD [address] [facility] [address] [place], [place] [id number] Urinary tract infection, site not specified Social History Tobacco Use Types Packs/Day Years Used Date Smoking Tobacco: Former Smokeless Tobacco: Former Alcohol Use Standard Drinks/Week Comments Yes 0 (1 standard drink = 0.6 oz pur e alcohol) Comments Unknown Sex and Gender Information Value Date Recorded Sex Assigned at Female 11/13/2024 8:44 AM EDT Legal Sex Female 6:56 AM EST Gender Identity Not on file Sexual Orientation Not on file documented as of this encounter Plan of Treatment Not on file documented as of this encounter Procedures Procedure Name Priority Date/Time Associated Diagnosis Comments BACTERIAL IDENTIFICATION AND SUSCEPTIBILITY, AEROBIC Routine 11/13/2024 12:00 AM EDT Urinary tract infection, site not specified documented in this encounter Results * (ABNORMAL) Bacterial identification and susceptibility, aerobic (11/13/2024 12:00 AM EDT) Culture, Bacterial ID and Sensitivity Klebsiella aerogenes(A) RADHA 11/15/2024 7:47 AM EDT [facility] Comment: This is an edited result. Previous organism was Gram negative bacilli on 11/14/2024 at 1150 EDT. Other Urine specimen from urethra / Unknown 11/13/2024 11/14/2024 9:49 AM EDT Narrative Organism Antibiotic Method Susceptibility Klebsiella aerogenes [...] <=0.12 ug/ml: Susceptible Klebsiella aerogenes Nitrofurantoin RADHA 32 ug/ml: Susceptible Klebsiella aerogenes Trimethoprim/Sulfamethoxazole RADHA <=20 ug/ml: Susceptible Ronal Herrera MD LAB MICROBIOLOGY - G ENERAL ORDERABLES Final Result [facility] [address] [place] [address], documented in this encounter Visit Diagnoses Diagnosis Urinary tract infection, site not specified documented in this encounter Care Teams Intelligence Clerk Relationship Specialty Start Date End Date Yakov Holm MD [address] [place] [address] PCP - General Internal Medicine 11/17/24 documented as of this encounter
--- OUTSIDE RECORDS SUMMARY | 2025-01-14 16:17 | XMS_ITS | Encounter Summary ---
Author Organization [facility] Address [address] [place] [address] Care Team Providers Care System Archive Analyst Name Role Phone Yakov Holm MD Primary Care Provider [phone] Chiqui Pena DO Unavailable [phone] Yakov Holm MD Unavailable [phone] Encounter Details Date Type Department Care Team (Late st Contact Info) Description 06/21/2023 Scanned Document [facility] VASCULAR SURG SCAN Vascular Surgery, Scan Social [...] Description 01/20/2025 3:50 PM EDT Office Visit [facility] Neurology [place] 280 [facility] 102 [place] [address] Shayne AbbieVANESA 280 [facility] [address] [place] [address] 04/03/2025 3:30 PM EST Office Visit [facility] [address] [place] [address] [place] [address] [place] [address] documented as of this encounter Visit Diagnoses Not on filedocumented in this encounter Care Teams System Archive Analyst Relationship Specialty Start Date End Date Yakov Holm MD [address] [place] [address] PCP - General Internal Medicine 06/01/23 Yakov Holm MD [address] [place] [address] PCP - [place] Commercial Attributed 06/22/23 11/21/23 Chiqui Pena DO [address] [place] [address] Obstetrics and Gynecology 09/05/23 documented as of this encounter
--- OUTSIDE RECORDS SUMMARY | 2025-01-14 16:17 | XMS_ITS | Encounter Summary ---
Author Organization [facility] Address [address] [place] [address] Care Team Providers Care Tube Blower Name Role Phone Yakov Holm MD Primary Care Provider [phone] Chiqui Pena DO Unavailable [phone] Yakov Holm MD Unavailable [phone] Encounter Details Date Type Department Care Team (Late st Contact Info) Description 07/11/2023 Scanned Document [facility] Pulmonary [place] [address] [place] [address] Zhang Vides, DO [address] [address] Social History Tobacco Use Types Packs/Day Years [...] Description 01/20/2025 3:50 PM EDT Office Visit [facility] Neurology [place] 280 [facility] 102 [place] [address] Abbie Bella, VANESA 280 [facility] 102 [place] [address] 04/03/2025 3:30 PM EST Office Visit [facility] [address] [place] [address] Yakov Holm MD [address] [place] [address] documented as of this encounter Visit Diagnoses Not on filedocumented in this encounter Care Teams Tube Blower Relationship Specialty [place] [address] [place] [address] PCP - General Internal Medicine 06/01/23 Yakov Holm MD [address] [place] [address] PCP - [place] Commercial Attributed 06/22/23 11/21/23 Chiqui Pena DO [address] [place] [address] Obstetrics and Gynecology 09/05/23 documented as of this encounter
--- OUTSIDE RECORDS SUMMARY | 2025-01-14 16:17 | XMS_ITS | Encounter Summary ---
Author Organization [facility] Address [address] [place] [address] Care Team Providers Care Human Services Professional Name Role Phone Yakov Holm MD Primary Care Provider [phone] Chiqui Pena DO Unavailable [phone] Yakov Holm MD Unavailable [phone] Encounter Details Date Type Department Care Team (Late st Contact Info) Description 07/10/2023 Scanned Document [facility] Pulmonary [place] [address] [place] [phone] Pulmonary, Scan Social History Tobacco Use Types [...] Description 01/20/2025 3:50 PM EDT Office Visit [facility] Neurology [place] 280 [facility] 102 [place] [address] Abbie Bella, COMMUNICATION EQUIPMENT MECHANIC 280 [facility] 102 [place], [place] [address] 04/03/2025 3:30 PM EST Office Visit [facility] 1559 [place] [address] Yakov Holm MD [address] [place] [address] documented as of this encounter Visit Diagnoses Not on filedocumented in this encounter Care Teams Human Services Professional Relationship Specialty Start Date End Date Yakov Holm MD [address] [place] [address] PCP - General Internal Medicine 06/01/23 Yakov Holm MD [address] [place] [address] PCP - [place] Commercial Attributed 06/22/23 11/21/23 Chiqui Pena DO [address] [place] [address] Obstetrics and Gynecology 09/05/23 documented as of this encounter
--- OUTSIDE RECORDS SUMMARY | 2025-01-14 16:17 | XMS_ITS | Encounter Summary ---
Author Organization [facility] Address [address] [place] [address] Care Team Providers Care Upper Doubler Name Role Phone Yakov Holm MD Primary Care Provider [phone] Chiqui Pena DO Unavailable [phone] Encounter Details Date Type Department Care Team (Late st Contact Info) Description 11/04/2024 Scanned Document [facility] [address] [place] [address] Urology, Scan Social History Tobacco Use Types Packs/Day Years Used Date Smoking Tobacco: Former Cigarettes 0 04/23/1975 - 04/23/1985 Smokeless Tobacco: Never Alcohol Use Standard Drinks/Week Comments Yes 2 (1 standard drink = 0.6 oz pur e alcohol) 1-2 times weekly 1-2 glasses [facility] Utilities Answer Date Recorded In the past 12 months has e electric, gas, oil, or water company threatened to shut off services in your home? No 10/03/2024 Social Connection and Isolation Panel [NHANES] A nswer Date Recorded In a typical week, how many times do you talk on the phone with family, friends, or neighbors? Once a week 10/03/2024 Frequency of Social Gatherings with Friends and Family Not on file 10/03/2024 Attends Mosque Services Not on file 10/03 Active Member [...] any time in the past 12 m [facility], were you homeless or living in a long-term (including now)? No 10/03/2024 Education Answer Date Recorded What is the highest level of school you have completed or the highest degree you have received? 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) 10/03/2024 Comments No Sex and Gender Information Value Date Recorded Sex Assigned at Female 11/01/2022 11:18 AM EDT Legal Sex Female 11:20 AM EDT Gender Identity Female 11/01/2022 11:18 AM EDT Sexual Orientation Heterosexual (straight) 11/01 11:18 AM EDT documented as of this encounter Plan of Treatment Upcoming Encounters Date Type Department Care Team (Marta avlarez Contact Info) Description 01/20/2025 3:50 PM EDT Office Visit [facility] Neurology [address] [address] Abbie Bella, JOINT CUTTER [address], [place] [address] 04/03/2025 3:30 PM EST Office Visit [address] [place] [address] Yakov Holm MD [address] [place] [address] documented as of this encounter Visit Diagnoses Not on filedocumented in this encounter Care Teams Upper Doubler Relationship Specialty Start Date End Date Yakov Holm MD [address] [place] [address] PCP - General Internal Medicine 06/01/23 Chiqui Pena DO [address] [place] [address] Obstetrics and Gynecology 09/05/23 documented as of this encounter
--- OUTSIDE RECORDS SUMMARY | 2025-01-14 16:18 | XMS_ITS | Encounter Summary ---
Author Organization [facility] Address [address] [place] [address] Care Team Providers Care Nurse General Duty Name Role Phone Yakov Holm MD Primary Care Provider [phone] Chiqui Pena DO Unavailable [phone] Encounter Details Date Type Department Care Team (Late Contact Info) Description 04/30/2024 Scanned Document [facility] GENERAL SURG SCAN General Surgery, Scan [...] Description 01/20/2025 3:50 PM EDT Office Visit [facility] Neurology [place] 280 [facility] [address] [place] [address] Abbie Bella APRN 280 [facility] 102 [place] [address] 04/03/2025 3:30 PM EST Office Visit [facility] [address] [place] [address] [place] [address] [place] [address] documented as of this encounter Visit Diagnoses Not on filedocumented in this encounter Care Teams Nurse General Duty Relationship Specialty Start Date End Date Yakov Holm MD [address] [place] [address] PCP - General Internal Medicine 06/01/23 Chiqui Pena DO [address] [place] [address] Obstetrics and Gynecology 09/05/23 documented as of this encounter
--- OUTSIDE RECORDS SUMMARY | 2025-01-14 16:18 | XMS_ITS | Clinical Summary ---
Author Organization [facility] Address [address] [place] [address] Care Team Providers Care Driver Wheelchair Name Role Phone Yakov Holm MD Primary Care Provider [phone] Chiqui Pena DO Unavailable [phone] Allergies No known active allergies Medications folic acid (FOLVITE) 1 MG tablet 11/02/19 23 Active Botox 100 units Recon Soln injection Every 5 months 01/13/20 23 Active hydrocortisone (ANUSOL-HC) 2.5 % rectal creamIndications :Hemorrhoids, unspecified hemorrhoid type Insert into the rectum 3 (three) times a day as needed for hemorrhoids . 28 g 02/29/20 24 Active methoTREXate 25 MG/ML injection 06/28/19 25 Active hydroxychloroqui ne (PLAQUENIL) 200 MG tablet 06/27/19 25 Active fluticasone (FloNASE) 50 mcg/spray nasal sprayIndications :Non-seasonal allergic rhinitis due to pollen 2 sprays into each nostril daily. 1 each 07/05/19 25 Active albuterol (PROVENTIL HFA; VENTOLIN HFA) 108 (90 Base) MCG/ACT inhalerIndicatio ns:SOB (shortness of breath) Inhale 2 puffs 4 times daily (every 6 hours) as needed for wheezing. 1 each 3 10/15/19 25 Active phentermine 37.5 MG capsuleIndicatio ns:BMI 40.0-44.9, adult (HCC) Take 1 capsule (37.5 mg total) by mouth every morning. 90 capsule 11/07/19 25 Active adalimumab (HUMIRA) 40 mg/0.8 mL pen-injector kit Inject 0.8 mL (40 mg total) under the skin every 14 days (2 weeks). Active venlafaxine (EFFEXOR-XR) 75 MG 24 hr capsuleIndicatio ns:Dysthymia TAKE ONE CAPSULE BY MOUTH EVERY DAY 90 capsule 1 12/16/19 25 Active lisinopril-hydro CHLOROthiazide (PRINZIDE,ZESTOR ETIC) 20-12.5 MG per tabletIndication s:Primary hypertension TAKE ONE TABLET BY MOUTH EVERY DAY 90 tablet 12/25/19 25 Active rOPINIRole (REQUIP) 4 MG tabletIndication s:Restless leg syndrome Take 1 tablet (4 mg total) by mouth nightly. 30 tablet 01/14/20 25 Active lisinopril-hydro CHLOROthiazide (PRINZIDE,ZESTOR ETIC) 20-12.5 MG per tabletIndication s:Primary hypertension Take 1 tablet by mouth daily. 90 tablet 06/10/19 25 025 Discontinued rOPINIRole (REQUIP) 4 MG tabletIndication s:Restless leg syndrome Take 1 tablet (4 mg total) by mouth nightly. 30 tablet 12/09/19 25 025 Discontinued(Re order) Active Problems Problem Noted Date Diagnosed Date Hypertension 12/01/2024 Overview (12/01/2024): Take lisinopril for this Rheumatoid arthritis 12/01/2024 Overview (12/01/2024): Take methotrexate and humira Change in bowel function 05/28/2024 Assessment & [...] dictated by speech recognition. Minor errors in operator catalyst concentration may be present Assessment & Plan (01/11/2024 [...] dictated by speech recognition. 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 11/10/2022 12/01/2024 Sleep apnea 12/01/2024 Overview (06/01/2023): +CPAP Encounters Date Type Department Care Team Description 01/13/2025 Orders Only [facility] Neurology [address] [place] [address] Zahra Nolan MD Restless leg syndrome (Primary Dx) 01/13/2025 Telephone [facility] Neurology [address] [place] [address] Zahra Nolan MD Medication Refill 12/24/[address] [address] Yakov Holm MD Primary hypertension 12/23/2024 Scanned Document [facility] UROLOGY SCAN Urology, Scan 12/14/2024 Refill [facility] Neurology [address] [place] [phone] Becka Cook APRN Restless leg syndrome 12/14/[address] [place] [address] Yakov Holm MD Dysthymia 12/05/2024 Refill [facility] Neurology [address] [phone] Zahra Nolan MD Restless leg syndrome 12/01/2024 3:45 PM EDT Office Visit [address] [place] [phone] Winnie Peres APRN Pre-op evaluation (Primary Dx) 12/01/2024 Travel 11/04/2024 Scanned Document [facility] [place] [address] Urology, Scan from Last 3 Months Immunizations Immunization Administration Dates Next Due Influenza, Quadrivalent (FLU [...] e alcohol) 1-2 times weekly 1-2 glasses [facility] Utilities Answer Date Recorded In the past [...] and Family Not on file 10/03/2024 Attends Caodaism Services Not on file 10/03 Active Member [...] any time in the past 12 m [facility], were you homeless or living in a alf (including now)? No 10/03/2024 Education Answer Date Recorded What is the highest level of school you have completed or the highest degree you have received? Master's degree (e.g., MA, MS, Gilmer, MEd, MEDICAL AUTHORIZATION SPECIALIST, DANY) 10/03/2024 Comments No Sex and Gender Information Value Date Recorded Sex Assigned at Female 11/01/2022 11:18 AM EDT Legal Sex Female 11:20 AM EDT Gender Identity Female 11/01/2022 11:18 AM EDT Sexual Orientation Heterosexual (straight) 11/01 11:18 AM EDT Last Filed Vital Signs Vital Sign Reading Time Taken Comments Blood Pressure 109/72 12/01/2024 3:35 PM EDT Pulse 103 12/01/2024 3:35 PM EDT Temperature 36.6 C (97.9 F) 12/01/2024 3:35 PM EDT Respiratory Rate 20 12/01/2024 3:35 PM EDT Oxygen Saturation 98% 12/01/2024 3:35 PM EDT Inhaled Oxygen Concentration - - Weight 88.5 kg (195 lb 3.2 oz) 12/01/2024 3:35 P M EDT Height 152.4 cm (5') 10/03/2024 12:57 PM EDT Body Mass Index 38.12 10/03/2024 12:57 PM EDT Plan of Treatment Upcoming Encounters Date Type Department Care Team (Late st Contact Info) Description 01/20/2025 3:50 PM EDT Office Visit [facility] Neurology [address] [address] Abbie Bella APRN [address] [place] [address] 04/03/2025 3:30 PM EST Office Visit [facility] [address] [facility] [address] Yakov Holm MD [address] [place] [address] Health Maintenance Due Date Last Done Comments Advance Care Planning 1960 Hepatitis C Virus Screening 1958 Quantiferon Gold TB 1968 Pneumococcal Vaccines 50+ (1 of 2 - PCV) 1977 Zoster (Shingles) Vaccine (1 of 2) 1977 RSV Vaccine 60 years and older and Patients (1 - Risk 60-74 years 1-dose series) 2018 Physical 09/04/2024 09/05/2023 Influenza Vaccine 11/21/2024 01/05/2023 COVID-19 Vaccine ( season) 2024 02/08/2021, 07/28/2020, 07/07/2020 DXA Bone Density (Females,Ages 65 and older) 07/05/2025 07/06/2023 Mammogram 09/17/2026 09/17/2024 DTaP/Tdap/Td Vaccines (2 - Td or Tdap) 01/05/2033 01/05/2023 Colonoscopy 01/24/2034 01/25/2024 Annual Wellness Visit Discontinued 10/03/2024 Chronic Controlled Substance User PDMP Review Discontinued 10/06/2024, 07/03/2024, 06/08/2023, Additional history exists Hepatitis B Vaccines Aged Out No long er eligible based on patient's age to complete this topic Procedures Procedure Name Priority Date/Time Associated Diagnosis Comments ECG 12-LEAD Routine 12/01/2024 3:50 PM EDT Pre-op evaluation IMAGING BREAST/BX/MAMMO Routine 09/17/2024 2:41 PM EDT DEXA BONE DENSITY HIP/PELVIS/SPINE W/FX EVAL Routine 07/06/2023 Age-related osteoporosis without current pathological fracture from Last 3 Months or Most Recently Relevant to Health Maintenance Results * ECG 12 lead (12/01/2024 3:50 PM EDT) Ventricular rate 90 BPM EKG [facility] Atrial rate 90 BPM EKG [facility] P-R interval 198 ms EKG [facility] QRS duration 84 ms EKG [facility] Q-T interval 368 ms EKG [facility] QTC calculation (Bazett) 450 ms EKG [facility] P axis 35 degrees EKG [facility] R axis -15 degrees [facility] T axis 41 degrees [facility] 12/01/2024 3:50 PM EDT [facility]ative [facility] 12/01/2024 9:38 PM EDT Normal sinus rhythm Inferior infarct , age undetermined Anterior infarct , age undetermined Abnormal ECG Similar to March 2023 tracing Confirmed by Winnie Peres APRN ([id number]) on 12/01/2024 9:38:18 PM Procedure Note Winnie Peres APRN - 12/01/2024 Normal sinus rhythm Inferior infarct , age undetermined Anterior infarct , age undetermined Abnormal ECG Similar to March 2023 tracing Confirmed by Winnie Peres APRN ([id number]) on 12/01/2024 9:38:18 PM Winnie Peres APRN ECG ORDERABLES Final Result [facility] * Imaging Breast/Bx/Mammo Result (09/17/2024 2:41 PM EDT) Anatomical Region Laterality Modality Other us Scan Radiology IMG LEGACY PROCEDURES Final Resu lt * DEXA Bone density-Hip/pelvis/spine w/fx eval (07/06/2023) Anatomical Region Laterality Modality Digital Radiogra phy 07/06/2023 us Yakov Holm MD [facility] DXA ORDERABLES Final Resul t from Last 3 Months or Most Recently Relevant to Health Maintenance Insurance MEDICARE PART A & B [facility] MEDICARE PART A & B BLUE CROSS OUT [facility] MEDICARE PART A & B [facility] MEDICARE PART A & B Advance Directives * Full Code (Latest Code Status on File) Date Activated Date Inactivated Comments 04/19/2023 12:52 PM Care Teams Driver Wheelchair Relationship Specialty Start Date End Date Yakov oHlm MD [address] [place] [address] PCP - General Internal Medicine 06/01/23 Chiqui Pena DO [address] [place] [address] Obstetrics and Gynecology 09/05/23
--- OUTSIDE RECORDS SUMMARY | 2025-01-14 16:18 | XMS_ITS | Clinical Summary ---
Author Organization [address] Address [address] [place] [phone] Care Team Providers Care Surgery Scheduler Name Role Phone Yakov Holm MD Primary Care Provider [phone] Allergies No known active allergies Medications lisinopriL-hydr [...] by mouth nightly. 70 mL 05/09/2024 Active Family History Relation Name Status Comments Father [...] 75 05/09/2024 11:17 AM EST Temperature 36.4 C (97.6 F) 05/09/2024 11:17 AM EST Respiratory Rate 18 05/09/2024 11:17 AM EST [...] cancer screening, Colonoscopy 12/01/2003 Diabetes screening 12/01/2003 Pneumococcal Vaccine (50+ ye ars) (1 of 1 - PCV) 2008 Shingles vaccine (Shingrix) (1 of 2 - Shingrix (RZV) 2 Dose Standard Series) 2008 Osteoporosis screening (bone density) 12/01/2023 Influenza vaccine 11/21/2024 01/05/2023 Covid-19 vaccine series ( - season) 2024 Tetanus adult (Td q 10,TDAP once) 01/05/2033 023 RSV Immunization (1 - 1-dose 75+ series) 2033 Cervical cancer screening Discontinued Meningococcal B Vaccine Aged Out No l onger eligible based on patient's age to complete this topic Meningococcal Vaccine Aged Out No emily tim eligible based on patient's age to complete this topic Insurance MEDICARE [facility] MEDICARE [facility] Care Teams Surgery Scheduler Relationship Specialty Start Date End Date Yakov Holm MD [address] [facility] [address] [place] [address] PCP - General Internal Medicine 05/09/24
--- OUTSIDE RECORDS SUMMARY | 2025-01-14 16:18 | XMS_ITS | Encounter Summary ---
Author Organization [facility] Address [address] [place] [address] Care Team Providers Care Rubber Engraver Name Role Phone Yakov Holm MD Primary Care Provider [phone] Chiqui Pena DO Unavailable [phone] Encounter Details Date Type Department Care Team (Late Contact Info) Description 06/11/2024 Scanned Document [facility] UROLOGY SCAN Urology, Scan Social History [...] 01/20/2025 3:50 PM EDT Office Visit [facility] Neurology [place] [address] [facility] [address] [place] [address] Abbie Bella APRN 280 [facility] 102 [place] [address] 04/03/2025 3:30 PM EST Office Visit [facility] [address] [place] [address] [place] [address] [place] [address] documented as of this encounter Visit Diagnoses Not on filedocumented in this encounter Care Teams Rubber Engraver Relationship Specialty Start Date End Date Yakov Holm MD [address] [place] [address] PCP - General Internal Medicine 06/01/23 Chiqui Pena DO [address] [place] [address] Obstetrics and Gynecology 09/05/23 documented as of this encounter
--- OUTSIDE RECORDS SUMMARY | 2025-01-14 16:18 | XMS_ITS | Clinical Summary ---
Author Organization [address] Address [address] [place] [phone] Phone Care Team Providers Care Otorhinolaryngologist Name Role Phone Yakov Holm MD Primary Care Provider [phone] Allergies Active Allergy Reactions Criticality Noted Date Comments Sulfamethoxazole-Trimethoprim Rash 2024 Medications rOPINIRole XL (REQUIP XL) 4 mg 24 hr tablet Take 1 tablet (4 mg total) by mouth at bedtime. Active albuterol HFA (PROAIR HFA ; PROVENTIL HFA ; VENTOLIN HFA) 90 mcg/actuation inhaler Inhale 2 puffs by mouth every 6 hours as needed. 5 Active Humira,CF, Pen 40 mg/0.4 mL pen Inject 0.4 mL (40 mg total) under the skin every 14 (fourteen) days. Calling surgeon to see if should stop humarira . Stopped on 5 Active fluticasone propionate (FLONASE) 50 mcg/actuation nasal spray Administer 2 sprays into affected nostril(s) if needed. 5 Active folic acid (FOLVITE) 1 mg tablet Take 1 tablet (1 mg total) by mouth 1 (one) time each day. 3 Active lisinopril-hydr oCHLOROthiazide (PRINZIDE,ZESTO RETIC) 20-12.5 mg per tablet Take 1 tablet by mouth daily. Active methotrexate 25 mg/mL solution Inject 1 mL (25 mg total) into the shoulder, thigh, or buttocks 1 (one) time per week. Last dose 11/10/24 Active venlafaxine (EFFEXOR) 75 mg tablet Take 1 tablet (75 mg total) by mouth at bedtime. Active Encounters Date Type Department Care Team Description 11/20/2024 12:01 PM EDT Anesthesia Event [facility] [place] [address] [place] [phone] Reji Sena MD Johnson, Lorraine, CRNA 11/20/2024 12:00 PM EDT - 11/20/2024 1:30 PM EDT Surgery [facility] [place] [address] [place] [phone] Ronal Herrera MD SACRAL NEUROMODULATOR STAGE 1 [65072 (CPT )] 11/20/2024 10:32 AM EDT - 11/20/2024 2:27 PM EDT Hospital Encounter [facility] [place] [address] [place] [phone] Ronal Herrera MD Discharge Disposition: Home or Self Care 11/20/2024 7:20 AM EDT - 11/20/2024 11:59 PM EDT Hospital Encounter [facility] Xray [address] [place] [phone] Pain Discharge Disposition: Home or Self Care 11/14/[address] [facility] - Main Lab [address] [facility] [place] [phone] Ronal Herrera MD Urinary tract infection, site not specified from Last 3 Months Surgical History Surgery Date Site/Laterality Comments CATARACT EXTRACTION PROCEDURE: HISTORICAL CATARACT REMOVAL TOTAL KNEE ARTHROPLASTY Left PROCEDURE: ID ARTHRP KNE CONDYLE&PLATU MEDIAL&LAT COMPARTMENTS TOTAL KNEE ARTHROPLASTY Right PROCEDURE: ID ARTHRP KNE CONDYLE&PLATU MEDIAL&LAT COMPARTMENTS KNEE SURGERY PROCEDURE: HISTORICAL KNEE SURGERY OTHER SURGICAL HISTORY PROCEDURE: ID LAPS GASTRIC RESTRICTIVE PROCEDURE PLACE DEVICE ROTATOR CUFF REPAIR Right PROCEDURE: HISTORICAL ROTATOR CUFF REPAIR TOE SURGERY KNEE ARTHROPLASTY x2 BARIATRIC SURGERY Medical History Medical History Date Comments Asthma DX:Asthma Back pain DX:Back pain Colon polyps DX:Colon polyps Insomnia DX:Insomnia Microscopic hematuria DX:Microsc opic hematuria Obesity DX:Obesity Restless leg syndrome DX:Restles s leg syndrome Hypertension Anxiety Arthritis rheumatoid and o steo Joint pain RA (rheumatoid arthritis) (CMS/[facility] V24, CMS/[facility] V28) Umbilical hernia x2 Social History Tobacco Use Types Packs/Day Years Used Date Smoking Tobacco: Former Smokeless Tobacco: Former Alcohol Use Standard Drinks/Week Comments Yes 0 (1 standard drink = 0.6 oz pur e alcohol) Comments No Sex and Gender Information Value Date Recorded Sex Assigned at Female 11/13/2024 8:44 AM EDT Legal Sex Female 6:56 AM EST Gender Identity Not on file Sexual Orientation Not on file Obstetrics History Last Filed Vital Signs Vital Sign Reading Time Taken Comments Blood Pressure 98/60 11/20/2024 2:08 PM EDT Pulse 81 11/20/2024 2:08 PM EDT Temperature 36.4 C (97.5 F) 11/20/2024 1:11 PM EDT Respiratory Rate 18 11/20/2024 1:11 PM EDT Oxygen Saturation 98% 11/20/2024 1:29 PM EDT Inhaled Oxygen Concentration - - Weight 83.9 kg (185 lb) 11/25/2024 12:00 PM EDT Height 152.4 cm (5') 11/25/2024 12:00 PM EDT Body Mass Index 36.13 11/25/2024 12:00 PM EDT Plan of Treatment Health Maintenance Due Date Last Done Comments Breast Cancer Screening 1960 COVID-19 Vaccine (#1) 12/01/1963 Pneumococcal Vaccine: 50+ Ye ars (1 of 1 - PCV) 2008 Zoster Vaccines (1 of 2) 2008 Cholesterol Screening (Lipid Panel) 03/26/2022 Colorectal Cancer Screening: Colonoscopy 03/26/2022 Hepatitis C Screening 03/26/2022 Medicare Annual Wellness Visit 03/26/2022 Social Influencers of Health Screening 03/26/2022 Depression Screening 04/23/2024 Influenza Vaccine (#1) 2024 01/05/2023 Hypertension/CHF/CAD Annual BMP Blood Test 04/11/2025 04/11/2024 Falls Risk Assessment 11/20/2025 11/20/2024 DTaP,Tdap,and Td Vaccines (2 - Td or Tdap) 01/05/2033 01/05/2023 Osteoporosis Screening (Bone Density Screening) 07/05/2033 07/06/2023 RSV Immunization Adult Patie nts (1 - 1-dose 75+ series) 2033 HIB [...] age to complete this topic Meningococcal B Vaccine Aged Out No l onger eligible based on patient's age to complete this topic RSV Immunization Patients Un joey 20 months Aged Out No longer eligible b ased on patient's age to complete this topic Varicella Vaccines Aged Out No longer eligible based on patient's age to complete this topic Medical Devices Implanted Type Area Health Care Marketing Manager Device Identifier Shelf Expiration Date Model / Serial / Lot Cable Ext Interstim 4.32mm - Sna - [id number] Implanted:Qty: 1 on 11/20/2024 by Ronal Herrera MD at [facility] Neurostim N/A: Back [employer] 09/02/2025 [id number] / NA / [id number] Kit Mri Lead Interstim 4.32-28cm - Sna - [id number] Implanted:Qty: 1 on 11/20/2024 by Ronal Herrera MD at [facility] Neurostim N/A: Back [employer] 03/04/2026 [id number] / NA / [id number] Procedures Procedure Name Priority Date/Time Associated Diagnosis Comments XR PELVIS 1-2 VIEWS Routine 11/20/2024 1 2:44 PM EDT Pain ID PERC IMPLANTATION NSTIM ELECTRODE ARRAY SACRAL NERVE INCL IMG GUID 11/20/2024 11:58 AM EDT Frequency of micturition Case Notes C-ARM BACTERIAL IDENTIFICATION AND SUSCEPTIBILITY, AEROBIC Routine 11/13/2024 12:00 AM EDT Urinary tract infection, site not specified from Last 3 Months Results * XR Pelvis 1-2 Views (11/20/2024 12:44 PM EDT) Anatomical Region Laterality Modality Body, Pelvis Radio Fluoroscop y 11/21/2024 9:02 AM EDT Narrative 11/21/2024 9:02 AM EDT Fluoroscopic spot radiographs obtained during placement of a sacral stimulator device are submitted. No radiologist consultation was requested or provided during this procedure and there is no radiologist professional charge. This report is generated for documentation purposes only. The dose for this procedure was 17.95 mGy. PQRI CPT II G9500 -------- FINAL REPORT -------- Dictated By: Jason Ramsay Dictated Date: 11/21/2024 09:02 ET Assigned Physician: Jason Ramsay Reviewed and Electronically Signed By: Jason Ramsay Signed Date: 11/21/2024 09:02 ET Workstation ID: [id number] Transcribed By: Self Edit Transcribed Date: 11/21/2024 09:02 ET Procedure Note Jason Ramsay MD - 11/21/2024 Fluoroscopic spot radiographs obtained during placement of a sacralstimulator device are submitted. No radiologist consultation was requestedor provided during this procedure and there is no radiologist professionalcharge. This report is generated for documentation purposes only. The dose for this procedure was 17.95 mGy. PQRI CPT II G9500 -------- FINAL REPORT -------- Dictated By: Jason Ramsay Dictated Date: 11/21/2024 09:02 ET Assigned Physician: Jason Ramsay Reviewed and Electronically Signed By: Jason Ramsay Signed Date: 11/21/2024 09:02 ET Workstation ID: [id number] Transcribed By: Self Edit Transcribed Date: 11/21/2024 09:02 ET Ronal Herrera MD IMG XR PROCEDURES Fi nal Result * (ABNORMAL) Bacterial identification and susceptibility, aerobic (11/13/2024 12:00 AM EDT) Culture, Bacterial ID and Sensitivity Klebsiella aerogenes(A) RADHA 11/15/2024 7:47 AM EDT [facility] Comment: This is an edited [...] MICROBIOLOGY - G ENERAL ORDERABLES Final Result [facility] [address] [place] [address], from Last 3 Months Insurance MEDICARE [facility] Care Teams Otorhinolaryngologist Relationship Specialty Start Date End Date Yakov Holm MD [address] [place] [address] PCP - General Internal Medicine 11/17/24
--- OUTSIDE RECORDS SUMMARY | 2025-01-14 16:18 | XMS_ITS | Encounter Summary ---
[facility] Address [address] [place] [address] Care Team Providers Care Flight Crew Scheduler Name Role Phone Yakov Holm MD Primary Care Provider [phone] Encounter Details Date Type Department Care Team ([facility] st Contact Info) Description 06/12/2024 Lab Requisition [facility] - Main Lab 299 [facility] [place] [phone] Yaima Cisneros NP [address] [facility] [address] [place], [place] [phone] Urgency of urination Social History Tobacco Use [...] Klebsiella aerogenes(A) RADHA 06/13/2024 10:10 AM EST [facility] Comment: This is an edited [...] Trimethoprim/Sulfamethoxazole RADHA <=20 ug/ml: Susceptible Yaima Cisneros SERVICENOW ADMINISTRATOR DEVELOPER LAB MICROBIOLOGY - GENERA L ORDERABLES Final Result [facility] [address] [place] [address], documented in this encounter Visit Diagnoses Diagnosis Urgency of urination documented in this encounter Care Teams Flight Crew Scheduler Relationship Specialty Start Date End Date Yakov Holm MD [address] [place] [address] PCP - General Internal Medicine 11/17/24 documented as of this encounter
--- OUTSIDE RECORDS SUMMARY | 2025-01-14 16:18 | XMS_ITS | Encounter Summary ---
Author Organization [facility] Address [address] [place] [address] Care Team Providers Care School Clerk Name Role Phone Yakov Holm MD Primary Care Provider [phone] Chiqui Pena DO Unavailable [phone] Reason for Visit * Reason Comments Referral Encounter Details Date Type Department Care Team ([facility] st Contact Info) Description 12/04/[address] [phone] Yakov Holm MD [address] [place] [phone] Referral Social History Tobacco Use Types Packs/Day [...] 01/20/2025 3:50 PM EDT Office Visit [facility] [place] [address] [facility] [address] [place] [address] Abbie Bella, VANESA 280 [facility] [address] [place] [address] 04/03/2025 3:30 PM EST Office Visit [address] [address] Yakov Holm MD [address] [place] [address] documented as of this encounter Visit Diagnoses Not on filedocumented in this encounter Care Teams School Clerk Relationship Specialty Start Date End Date Yakov Holm MD [address] [place] [address] PCP - General Internal Medicine 06/01/23 Chiqui Pena DO [address] [place] [address] Obstetrics and Gynecology 09/05/23 documented as of this encounter
--- OUTSIDE RECORDS SUMMARY | 2025-01-14 16:18 | XMS_ITS | Encounter Summary ---
Author Organization [facility] Address [address] [place] [address] Care Team Providers Care Brim Edge Trimmer Name Role Phone Yakov Holm MD Primary Care Provider [phone] Chiqui Pena DO Unavailable [phone] Encounter Details Date Type Department Care Team ([facility] st Contact Info) Description 01/13/2025 Orders Only [facility] Neurology [address] [phone] Zahra Nolan MD [address] [address] Restless leg syndrome (Primary Dx) Social History Tobacco Use Types Packs/Day Years Used Date Smoking Tobacco: Former Cigarettes 0 04/23/1975 - 04/23/1985 Smokeless Tobacco: Never Alcohol Use Standard Drinks/Week Comments Yes 2 (1 standard drink = 0.6 oz pur e alcohol) 1-2 times weekly 1-2 glasses [facility] Utilities Answer Date Recorded In the past 12 months has ididwork electric, gas, oil, or water company threatened to shut off services in your home? No 10/03/2024 Social Connection and Isolation Panel [NHANES] A nswer Date Recorded In a typical week, how many times do you talk on the phone with family, friends, or neighbors? Once a week 10/03/2024 Frequency of Social Gatherings with Friends and Family Not on file 10/03/2024 Attends [employer] Services Not on file 10/03 Active Member [...] any time in the past 12 m [facility], were you homeless or living in a half-way (including now)? No 10/03/2024 Education Answer Date Recorded What is the highest level of school you have completed or the highest degree you have received? Master's degree (e.g., MA, MS, [place], MEd, APRN, DANY) 10/03/2024 Comments No Sex and Gender [...] Description 01/20/2025 3:50 PM EDT Office Visit [facility] Neurology [place] 280 [facility] 102 [place] [address] Abbie BellaVANESA 280 [facility] [address] [place] [address] 04/03/2025 3:30 PM EST Office Visit [facility] [address] [place] [address] [place] [address] [place] [address] documented as of this encounter Visit Diagnoses Diagnosis Restless leg syndrome- Primary Restless legs syndrome (RLS) documented in this encounter Care Teams Brim Edge Trimmer Relationship Specialty Start Date End Date Yakov Holm MD [address] [place] [address] PCP - General Internal Medicine 06/01/23 Chiqui Pena DO [address] [place] [address] Obstetrics and Gynecology 09/05/23 documented as of this encounter
--- OUTSIDE RECORDS SUMMARY | 2025-01-14 16:18 | XMS_ITS | Encounter Summary ---
Author Organization [facility] Address [address] [place] [address] Care Team Providers Care Typesetter Apprentice Name Role Phone Yakov Holm MD Primary Care Provider [phone] Chiqui Pena DO Unavailable Yakov Holm MD Unavailable Encounter Details Date Type Department Care Team (Late st Contact Info) Description 08/23/2023 Scanned Document [facility] EMERGENCY MED SCAN Emergency Medicine, Scan [...] Description 01/20/2025 3:50 PM EDT Office Visit [facility] Neurology [place] [address] [facility] [address] [place] [address] Shayne AbbieVNAESA 280 [facility] [address] [place] [address] 04/03/2025 3:30 PM EST Office Visit [facility] [address] [place] [address] [place] [address] [place] [address] documented as of this encounter Visit Diagnoses Not on filedocumented in this encounter Care Teams Typesetter Apprentice Relationship Specialty Start Date End Date Yakov Holm MD [address] [place] [address] PCP - General Internal Medicine 06/01/23 Yakov Holm MD [address] [place] [address] PCP - [facility] Attributed 06/22/23 11/21/23 Chiqui Pena DO [address] [place] [address] Obstetrics and Gynecology 09/05/23 documented as of this encounter
== END 2025-01-14 14:52 | disposition home or self-care (01) ==
LOC: HO.RHES 13:48
PROVIDERS: PCP Internal Medicine; Visit Provider Internal Medicine Rheumatology
DX: M06.09 Rheumatoid arthritis without rheumatoid factor, multiple sites (principal); Z79.899 Other long term (current) drug therapy; M18.0 Bilateral primary osteoarthritis of first carpometacarpal joints; M25.541 Pain in joints of right hand
CPT/HCPCS: 20600; 99214

== ENCOUNTER 2025-03-23 14:32 | Outpatient (REF) | payer MEDICARE, SELFPAY ==
--- OUTSIDE RECORDS SUMMARY | 2023-02-28 10:00 | XMS_ITS | Continuity of Care Document ---
Author Organization [facility] vices Address [address] [place] [address] Phone Care Team Providers Care Rn Lactation Consultant Name Role Phone Shantel Blanton RD Unavailable Unavailable Allergies, Adverse Reactions, Alerts Substance Reaction Status Criticality No Known Allergies Active No Inform ation Procedures Procedure Date Medical Nutrition Therapy; R e-Assessment/Intervntn, Inidividual, Each 15 Min Medical Nutrition Therapy; I nitial Assessmnt/Intervntn, Inidividual, Each 15 Min Advance Directives Directive Yes / No Effective Date File Name No Information Encounters Encounter Description Practice Location Reason(s) For Visit Diagnoses Date Provider Providers Copied on Encounter [facility], [address] [place] [address], Formerly named [facility], tel:[phone] [facility] Adult Medicine Prep for Bariatric Surgery (chief complaint) Body mass index (BMI) 40.0-44.9, adultMorbid (severe) obesity due to excess caloriesDietary counseling and surveillanceExercise counseling 3 Pevar Shantel. [address] [place] [address], [id number] [place] [address], Formerly named [facility], [place]. tel:[phone] [facility], [address] [place] [address], tel:[phone] [facility] Adult Medicine Prep for Bariatric Surgery (chief complaint) Dietary counseling and surveillanceExercise counselingObesityBod y mass index [BMI] 38.0-38.9, adult 3 Pevar Shantel. [address] [facility] [id number] [address], [place], Formerly named [facility], [place]. tel:[phone] Family History Family Member Type Diagnosis Age At Onset No Information Payers Payer name Insurance type Covered green party ID Authorlena vega(s) BCBS Elia Mari DSNP [facility] [id number] Social History Type Description Quantity Date Captured Comments Alcohol Use Details Unknown Caffeine Use Details Unknown Tobacco Use Status Current non-smoker Smoking Status Never smoker Non-Smoking Tobacco Use Details : No Details Available : No Details Available Sex Female Sexual Orientation Choose not to disclose Gender Identity Choose not to disclose Vital Signs Date / Time: Height Weight BMI Pulse Rate Blood Pressure Temperature Respiratory Rate Body Surface Area Head Circumference Head Circ. Percentile Wt./Leonidas. Percentile BMI percentile Pulse Ox Inhaled Ox 3:17 PM 60.00 in 93.259 kg (205.60 lbs) 40.1 5 kg/m eter (2) 100 /min 136/84 mm[Hg] 97.80 F 15 /min 97 % 21 % Chief Complaint And Reason For Visit From encounter dated '02/28/2023 15:00'. Prep for Bariatric Surgery (chief complaint). Description: 12/20/22: Started Wegovy 5 weeks ago, hasseen a slight decrease in her weight. Desires weight loss surgery to promote a healthy long life. Had Lap band 12 years sago, recently had surgery to take it out 1 week ago. Pt here to assess readiness for Gastric Sleeve Bariatric Surgery.02/28/23: Pt plans to have surgery in March if possible, no exact surgery date yet. Pt slowly gaining weight and wants to maintain or lose before her surgery. Reason For Referral Reason For Referral No Information Plan Of Treatment Date Type Action Status Goal Dietary management education , guidance, and counseling completed History Of Present Illness Encounter Date Complaint History Of Prese nt Illness Prep for Bariatric Surgery : Started Wegovy 5 weeks ago, has seen a slight decrease in her weight. Desires weight loss surgery to promote a healthy long life. Had Lap band 12 years sago, recently had surgery to take it out 1 week ago. Pt here to assess readiness for Gastric Sleeve Bariatric Surgery.02/28/23: Pt plans to have surgery in March if possible, no exact surgery date yet. Pt slowly gaining weight and wants to maintain or lose before her surgery. Prep for Bariatric Surgery Start ed Jayden 5 weeks ago, has seen a slight decrease in her weight. Desires weight loss surgery to promote a healthy long life. Had Lap band 12 years sago, recently had surgery to take it out 1 week ago. Pt here to assess readiness for Gastric Sleeve Bariatric Surgery. Functional Status Date Functional Assessmen t No Information Instructions Date Instruction Additional Infor mation Stay active to promo te heart health and muscle and bone density. The goal is 150 minutes of moderate intensity aerobic exercise each week, as well as high intensity resistance/weight training 2x a week. Related to Exercise counseling Increase water intak e High protein breakfast to set yourself up for the day Limit sweets - do not leave the house hungry to avoid cravings when you are outReview balanced snack list for ideasEat a balanced diet with protein, carbohydrates, and healthy fats.Try your best to eat whole foods instead of processed foods in order to avoid excess oil, sugar, and salt. Consume 3-5 servings of non starchy veg dailyEat lean proteinsEat whole grains Drink adequate waterBoil, Roast, Steam instead of patterson. Related to Dietary counseling and surveillance Dietary management e ducation, guidance, and counseling Related to Body mass index [BMI] 40.0-44.9, adult Stay active to promo te heart health and muscle and bone density. The goal is 150 minutes of moderate intensity aerobic exercise each week, as well as high intensity resistance/weight training 2x a week. Related to Exercise counseling protein first, veget henry, then carbohydrates at your mealsIncrease water intake, small sips throughout the dayEat a balanced diet with protein, carbohydrates, and healthy fats.Try your best to eat whole foods instead of processed foods in order to avoid excess oil, sugar, and salt. Consume 3-5 servings of non starchy veg dailyEat lean proteinsEat whole grains Drink adequate waterBoil, Roast, Steam instead of patterson. 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
--- OUTSIDE RECORDS SUMMARY | 2023-06-20 10:00 | XMS_ITS | Continuity of Care Document ---
Author Organization [facility] Address [address] [facility] [address] [place] [phone] Phone Care Team Providers Care Trial Attorney Name Role Phone Dariusz Baptiste MD Unavailable Unavailable Procedures Procedure Date Office/Oupt E&M New Pt 30 Mins Duplex Scan-extrem Veins; Comp 24 Advance Directives Directive Yes / No Effective Date File Name No Information Encounters Encounter Description Practice Location Reason(s) For Visit Diagnoses Date Provider Providers Copied on Encounter Office/Oupt E&M New Pt 30 Mins [facility], [address] [place] [address], [id number], tel:[phone] [facility] [place] [facility] [place] Pain in right lower legPain in left lower legLocalized edemaVenous insufficiency (chronic) (peripheral)Essent ial (primary) hypertensionDisord er of pigmentation, unspecified 4 Oliva Arzola. [address] [place], [address], [place]. [phone] Referring Provider: Yakov Holm MD, [address] [place] [address], [id number]. tel:[phone] [facility], [address] [place] [address], [id number], tel:[phone] [facility] [place] Chronic venous hypertension (idiopathic) with other complications of bilateral lower extremity Bev CHRISTOPHER Walter. [address] [facility], [address], [place], [place], [id number] , [place]. tel: [phone] Referring Provider: Yakov Holm MD, [address] [place], [address]. tel:[phone] Family History Family Member Type Diagnosis Age At Onset No Information Payers Payer name Insurance type Covered republican ID Carolina Rodrigez (s) [place] [id number] Social History Type Description Quantity Date Captured Comments Alcohol Use Details Unknown Caffeine Use Details Unknown Tobacco Use Status Current non-smoker Smoking Status Never Smoker Non-Smoking Tobacco Use Details : No Details Available : No Details Available Sex Female Vital Signs Date / Time: Height Weight BMI Pulse Rate Blood Pressure Temperature Respiratory Rate Body Surface Area Head Circumference Head Circ. Percentile Wt./Leonidas. Percentile BMI percentile Pulse Ox Inhaled Ox 95.710 kg (211.00 lbs) 41.2 1 kg/m eter (2) 120/60 mm[Hg] Chief Complaint And Reason For Visit No Information Reason For Referral Reason For Referral No Information Plan Of Treatment Date Type Action Status Goal Diet education completed Referral Ordered: Weight management: Referral to physician timeframe: 3 Months (related to Body mass index (BMI) 40.0-44.9, adult) ordered History Of Present Illness Encounter Date Complaint History Of Prese nt Illness No Information Functional Status Date Functional Assessmen t No Information Instructions Date Instruction Additional Infor mation Patient education booklet given Related to Pain in right lower leg Lifestyle education Related to B brandon mass index (BMI) 40.0-44.9, adult Giving Encouragement to exercise Related to Body mass index (BMI) 40.0-44.9, adult Diet education Related to Body mass index (BMI) 40.0-44.9, adult Assessments Type Assessment Date No Information Patient Care Teams Name Effective Dates (start - stop) Status Members No Information
--- OUTSIDE RECORDS SUMMARY | 2025-03-23 17:50 | XMS_ITS | Encounter Summary ---
Author Organization [facility]ly [facility] Address [address] [place] [address] Care Team Providers Care Blood Bank Business Manager Name Role Phone Yakov Holm MD Primary Care Provider [phone] Chiqui Pena DO Unavailable [phone] Yakov Holm MD Unavailable [phone] Encounter Details Date Type Department Care Team (Late st Contact Info) Description 07/10/2023 Scanned Document [facility] Pulmonary [place] [address] [place] [phone] Pulmonary, Scan Social History Tobacco Use Types [...] on file documented as of this encounter Visit Diagnoses Not on filedocumented in this encounter Care Teams Blood Bank Business Manager Relationship Specialty Start Date End Date Yakov Holm MD [address] [place] [address] PCP - General Internal Medicine 06/01/23 Yakov Holm MD [address] [place] [address] PCP - [place] [employer] Attributed 06/22/23 11/21/23 Chiqui Pena DO [address] [place] [address] Obstetrics and Gynecology 09/05/23 documented as of this encounter
--- OUTSIDE RECORDS SUMMARY | 2025-03-23 17:50 | XMS_ITS | Encounter Summary ---
Author Organization [facility] Address [address] [place] [address] Care Team Providers Care Board Worker Name Role Phone Yakov Holm MD Primary Care Provider Chiqui Pena DO Unavailable [phone] Yakov Holm MD Unavailable [phone] Encounter Details Date Type Department Care Team (Late st Contact Info) Description 07/11/2023 Scanned Document [facility] Pulmonary [place] [address] [place] [address] Zhang Vides, DO [address] [address] Social History Tobacco Use Types Packs/Day Years [...] on filedocumented in this encounter Care Teams Board Worker Relationship Specialty Start Date End Date Yakov Holm MD [address] [place] [address] PCP - General Internal Medicine 06/01/23 Yakov Holm MD [address] [place] [address] PCP - [place] Commercial Attributed 06/22/23 11/21/23 Chiqui Pena DO [address] [place] [address] Obstetrics and Gynecology 09/05/23 documented as of this encounter
--- OUTSIDE RECORDS SUMMARY | 2025-03-23 17:50 | XMS_ITS | Encounter Summary ---
Author Organization [facility] Address [address] [place] [address] Care Team Providers Care Seam Stay Stitcher Name Role Phone Yakov Holm MD Primary Care Provider [phone] Chiqui Pena DO Unavailable [phone] Encounter Details Date Type Department Care Team (Late st Contact Info) Description 06/11/2024 Scanned Document [facility] UROLOGY SCAN Urology, Scan Social History [...] on filedocumented in this encounter Care Teams Seam Stay Stitcher Relationship Specialty Start Date End Date Yakov Holm MD [address] [place] [address] PCP - General Internal Medicine 06/01/23 Chiqui Pena DO [address] [place] [address] Obstetrics and Gynecology 09/05/23 documented as of this encounter
--- OUTSIDE RECORDS SUMMARY | 2025-03-23 17:50 | XMS_ITS | Encounter Summary ---
Author Organization [facility] Address [address] [place] [address] Care Team Providers Care Leather Sprayer Name Role Phone Yakov Holm MD Primary Care Provider [phone] Chiqui Pena DO Unavailable [phone] Yakov Holm MD Unavailable [phone] Encounter Details Date Type Department Care Team (Late st Contact Info) Description 07/04/2023 Scanned Document [facility] PRIMARY CARE SCAN Primary Care, Scan Social [...] on filedocumented in this encounter Care Teams Leather Sprayer Relationship Specialty Start Date End Date Yakov Holm MD [address] [place] [address] PCP - General Internal Medicine 06/01/23 Yakov Holm MD [address] [place] [address] PCP - [place] Commercial Attributed 06/22/23 11/21/23 Chiqui Pena DO [address] [place] [address] Obstetrics and Gynecology 09/05/23 documented as of this encounter
--- OUTSIDE RECORDS SUMMARY | 2025-03-23 17:51 | XMS_ITS | Encounter Summary ---
Author Organization [facility] Address [address] [place] [address] Care Team Providers Care Retail Cosmetics Sales Counter Manager Name Role Phone Yakov Holm MD Primary Care Provider [phone] Encounter Details Date Type Department Care Team ([facility] st Contact Info) Description 06/12/2024 Lab Requisition [facility] - Main Lab [address] [facility] [place] [address] Yaima Cisneros NP [address] [facility] [address] [place], [place] [id number] Urgency of urination Social History Tobacco Use [...] Trimethoprim/Sulfamethoxazole RADHA <=20 ug/ml: Susceptible Yaima Cisneros COIL CONNECTOR REPAIRER LAB MICROBIOLOGY - GENERA L ORDERABLES Final Result [facility] [address] [place] [address], documented in this encounter Visit Diagnoses Diagnosis Urgency of urination documented in this encounter Care Teams Retail Cosmetics Sales Counter Manager Relationship Specialty Start Date End Date Yakov Holm MD [address] [place] [address] PCP - General Internal Medicine 11/17/24 documented as of this encounter
--- OUTSIDE RECORDS SUMMARY | 2025-03-23 17:51 | XMS_ITS | Clinical Summary ---
Author Organization [address] Address [address] [place] [address] Phone Care Team Providers Care Certified Public Accountant Name Role Phone Yakov Holm MD Primary Care Provider [phone] Allergies Active Allergy Reactions Criticality Noted Date [...] mg total) by mouth at bedtime. Active Surgical History Surgery Date Site/Laterality Comments CATARACT EXTRACTION PROCEDURE: HISTORICAL CATARACT REMOVAL TOTAL KNEE ARTHROPLASTY Left PROCEDURE: [place] ARTHRP KNE CONDYLE&PLATU MEDIAL&LAT COMPARTMENTS TOTAL KNEE ARTHROPLASTY Right PROCEDURE: MN ARTHRP KNE CONDYLE&PLATU MEDIAL&LAT COMPARTMENTS KNEE SURGERY PROCEDURE: HISTORICAL KNEE SURGERY OTHER SURGICAL HISTORY PROCEDURE: MN LAPS GASTRIC RESTRICTIVE PROCEDURE PLACE DEVICE ROTATOR [...] o steo Joint pain RA (rheumatoid arthritis) (CMS/HCC V24, CMS/HCC V28) Umbilical hernia x2 Social History Tobacco [...] Last Done Comments Breast Cancer Screening 1960 Colorectal Cancer Screening: Colonoscopy 1960 COVID-19 Vaccine (#1) 12/01/1963 Pneumococcal Vaccine: 50+ Ye ars (1 of 1 - PCV) 2008 RSV Immunization Adult Patie nts (1 - Risk 50-74 years 1-dose series) 2008 Zoster Vaccines (1 of 2) 2008 Cholesterol Screening (Lipid Panel) 03/26/2022 Hepatitis C Screening 03/26/2022 Medicare Annual Wellness Visit 03/26/2022 Social Influencers of Health Screening 03/26/2022 Depression Screening 04/23/2024 Influenza Vaccine (#1) 2024 01/05/2023 Hypertension/CHF/CAD Annual BMP Blood Test 04/11/2025 04/11/2024 Falls Risk Assessment 11/20/2025 11/20/2024 DTaP,Tdap,and Td Vaccines (2 - Td or Tdap) 01/05/2033 01/05/2023 Osteoporosis Screening (Bone Density Screening) 07/05/2033 07/06/2023 HIB Vaccines Aged Out No longer eligi [...] this topic Medical Devices Implanted Type Area Stamp Pad Maker Device Identifier Shelf Expiration Date Model / Serial / Lot Cable Ext Interstim 4.32mm - Sna - [id number] Implanted:Qty: 1 on 11/20/2024 by Ronal Herrera MD at [facility] Neurostim N/A: Back [employer] 09/02/2025 [id number] / NA / [id number] Kit Mri Lead Interstim 4.32-28cm - Sna - [id number] Implanted:Qty: 1 on 11/20/2024 by Ronal Herrera MD at [facility] Neurostim N/A: Back [employer] 03/04/2026 [id number] / NA / [id number] Insurance [phone] (Work) [address] [place] [address] MEDICARE [facility] Care Teams Certified Public Accountant Relationship Specialty Start Date End Date Yakov Holm MD [address] [place] [address] PCP - General Internal Medicine 11/17/24
--- OUTSIDE RECORDS SUMMARY | 2025-03-23 17:51 | XMS_ITS | Encounter Summary ---
Author Organization [facility] Address [address] [place] [address] Care Team Providers Care Basketball Player Name Role Phone Yakov Holm MD Primary Care Provider [phone] Chiqui Pena DO Unavailable [phone] Encounter Details Date Type Department Care Team (Late st Contact Info) Description 12/23/2024 Scanned Document [facility] UROLOGY SCAN Urology, Scan Social History Tobacco Use Types Packs/Day Years Used Date Smoking Tobacco: Former Cigarettes 0 04/23/1975 - 04/23/1985 Smokeless Tobacco: Never Alcohol Use Standard Drinks/Week Comments Yes 2 (1 standard drink = 0.6 oz pur e alcohol) 1-2 times weekly 1-2 glasses [facility] Utilities Answer Date Recorded In the past 12 months has e electric, gas, oil, or water company threatened to shut off services in your home? No 10/03/2024 Social Connection and Isolation Panel Answer Date Recorded In a typical week, how many times do you talk on the phone with family, friends, or neighbors? Once a week 10/03/2024 Frequency of Social Gatherings with Friends and Family Not on file 10/03/2024 Attends Congregation Services Not on file 10/03 Active Member [...] any time in the past 12 m [facility], were you homeless or living in a chcf (including now)? No 10/03/2024 Education Answer Date Recorded What is the highest level of school you have completed or the highest degree you have received? Master's degree (e.g., MA, MS, Gilmer, MEd, HAT BRIM CURLER, DANY) 10/03/2024 Comments No Sex and Gender [...] on filedocumented in this encounter Care Teams Basketball Player Relationship Specialty Start Date End Date Yakov Holm MD [address] [place] [address] PCP - General Internal Medicine 06/01/23 Chiqui Pena DO [address] [place] [address] Obstetrics and Gynecology 09/05/23 documented as of this encounter
--- OUTSIDE RECORDS SUMMARY | 2025-03-23 17:51 | XMS_ITS | Encounter Summary ---
Author Organization [facility] Address [address] [place] [address] Care Team Providers Care Ceo And President Name Role Phone Yakov Holm MD Primary Care Provider [phone] Chiqui Pena DO Unavailable [phone] Encounter Details Date Type Department Care Team (Late st Contact Info) Description 02/10/2025 Scanned Document [facility] Neurology [address] [place] [address] Neurology, Scan Social History Tobacco Use Types Packs/Day Years Used Date Smoking Tobacco: Former Cigarettes 0 04/23/1975 - 04/23/1985 Smokeless Tobacco: Never Alcohol Use Standard Drinks/Week Comments Yes 2 (1 standard drink = 0.6 oz pur e alcohol) 1-2 times weekly 1-2 glasses [facility] Utilities Answer Date Recorded In the past 12 months has [employer] electric, gas, oil, or water company threatened to shut off services in your home? No 10/03/2024 Social Connection and Isolation Panel Answer Date Recorded In a typical week, how many times do you talk on the phone with family, friends, or neighbors? Once a week 10/03/2024 Frequency of Social Gatherings with Friends and Family Not on file 10/03/2024 Attends Taoism Services Not on file 10/03 Active Member [...] any time in the past 12 m [facility], were you homeless or living in a prison (including now)? No 10/03/2024 Education Answer Date Recorded What is the highest level of school you have completed or the highest degree you have received? Master's degree (e.g., MA, MS, Gilmer, MEd, VEGETABLE CUTTER, DANY) 10/03/2024 Comments No Sex and Gender [...] on filedocumented in this encounter Care Teams Ceo And President Relationship Specialty Start Date End Date Yakov Holm MD [address] [place] [address] PCP - General Internal Medicine 06/01/23 Chiqui Pena DO [address] [place] [address] Obstetrics and Gynecology 09/05/23 documented as of this encounter
--- OUTSIDE RECORDS SUMMARY | 2025-03-23 17:51 | XMS_ITS | Encounter Summary ---
Author Organization [facility] Address [address] [place] [address] Care Team Providers Care Cafe Manager Name Role Phone Jason Erwin Primary Care Provider [phone] Jason Seth MD Primary Care Provider [phone] Yakov Holm MD Primary Care Provider [phone] Chiqui Pena DO Unavailable [phone] Yakov Holm MD Unavailable [phone] Encounter Details Date Type Department Care Team (Late st Contact Info) Description 04/11/2023 Scanned Document [facility] NEUROSURGERY SCAN Neurosurgery, Scan Social History Tobacco [...] on filedocumented in this encounter Care Teams Cafe Manager Relationship Specialty Start Date End Date Jason Erwin [address] [place], [place] PCP - General Internal Medicine 12/12/22 04/18/23 Jason Seth MD [address] [place] [address] PCP - General 04/19/23 05/31/23 Yakov Holm MD [address] [place] [address] PCP - General Internal Medicine 06/01/23 Yakov Holm MD [address] [place] [address] PCP - [place] [employer] Attributed 06/22/23 11/21/23 Chiqui Pena DO [address] [place] [address] Obstetrics and Gynecology 09/05/23 documented as of this encounter
--- OUTSIDE RECORDS SUMMARY | 2025-03-23 17:51 | XMS_ITS | Encounter Summary ---
Author Organization [facility] Address [address] [place] [address] Care Team Providers Care Bee Raiser Name Role Phone Yakov Holm MD Primary Care Provider [phone] Chiqui Pena DO Unavailable Yakov Holm MD Unavailable Encounter Details Date Type Department Care Team (Late st Contact Info) Description 11/14/2023 Scanned Document [facility] [address] [facility] [address] [place] [address] Clau Zavala APRN [address] [facility] [address] [place] [address] Social History Tobacco Use Types Packs/Day Years [...] on filedocumented in this encounter Care Teams Bee Raiser Relationship Specialty Start Date End Date Yakov Holm MD [address] [place] [address] PCP - General Internal Medicine 06/01/23 Yakov Holm MD [address] [place] [address] PCP - [place] Commercial Attributed 06/22/23 11/21/23 Chiqui Pena DO [address] [place] [address] Obstetrics and Gynecology 09/05/23 documented as of this encounter
--- OUTSIDE RECORDS SUMMARY | 2025-03-23 17:51 | XMS_ITS | Encounter Summary ---
Author Organization [facility] Address [address] [place] [address] Care Team Providers Care Assistant Statistician Name Role Phone Yakov Holm MD Primary Care Provider [phone] Chiqui Pena DO Unavailable [phone] Encounter Details Date Type Department Care Team (Late st Contact Info) Description 01/25/[address] [facility] [address] [facility] [address] [place] [address] Kelli Costello MD [address] [place], [place] [id number] Social History Tobacco Use Types Packs/Day Years [...] * PATHOLOGY REPORT (01/25/2024 12:00 AM EDT) [facility]in CHRISTOPHER PATHOLOGY/CYTOLOGY ORDERABLES Fi nal Result documented in this encounter Visit Diagnoses Not on filedocumented in this encounter Care Teams Assistant Statistician Relationship Specialty Start Date End Date Yakov Holm MD [address] [place] [address] PCP - General Internal Medicine 06/01/23 Chiqui Pena DO [address] [place] [address] Obstetrics and Gynecology 09/05/23 documented as of this encounter
--- OUTSIDE RECORDS SUMMARY | 2025-03-23 17:51 | XMS_ITS | Encounter Summary ---
Author Organization [facility] Address [address] [place] [address] Care Team Providers Care Diesel Power Mechanic Name Role Phone Yakov Holm MD Primary Care Provider [phone] Chiqui Pena DO Unavailable [phone] Yakov Holm MD Unavailable [phone] Encounter Details Date Type Department Care Team (Late st Contact Info) Description 07/16/2023 Scanned Document [facility] Pulmonary [place] [address] [place] [address] Zhang Vides, DO [address] [address] Social History Tobacco Use Types Packs/Day Years [...] on filedocumented in this encounter Care Teams Diesel Power Mechanic Relationship Specialty Start Date End Date Yakov Holm MD [address] [place] [address] PCP - General Internal Medicine 06/01/23 Yakov Holm MD [address] [place] [address] PCP - [place] Commercial Attributed 06/22/23 11/21/23 Chiqui Pena DO [address] [place] [address] Obstetrics and Gynecology 09/05/23 documented as of this encounter
--- OUTSIDE RECORDS SUMMARY | 2025-03-23 17:51 | XMS_ITS | Clinical Summary ---
Author Organization [address] Address [address] [place] [address] Care Team Providers Care Sql Consultant Name Role Phone Yakov Holm MD Primary Care Provider [phone] Allergies No known active allergies Medications lisinopriL-hydr [...] age to complete this topic Insurance MEDICARE [facility] MEDICARE [facility] Care Teams Sql Consultant Relationship Specialty Start Date End Date Yakov Holm MD [address] [facility] [address] [place] [address] PCP - General Internal Medicine 05/09/24
--- OUTSIDE RECORDS SUMMARY | 2025-03-23 17:51 | XMS_ITS | Encounter Summary ---
Author Organization [facility] Address [address] [place] [address] Care Team Providers Care Civil Defense Director Name Role Phone Yakov Holm MD Primary Care Provider [phone] Chiqui Pena DO Unavailable [phone] Encounter Details Date Type Department Care Team (Late st Contact Info) Description 04/30/2024 Scanned Document [facility] GENERAL SURG SCAN General Surgery, Scan [...] on filedocumented in this encounter Care Teams Civil Defense Director Relationship Specialty Start Date End Date Yakov Holm MD [address] [place] [address] PCP - General Internal Medicine 06/01/23 Chiqui Pena DO [address] [place] [address] Obstetrics and Gynecology 09/05/23 documented as of this encounter
--- OUTSIDE RECORDS SUMMARY | 2025-03-23 17:51 | XMS_ITS | Encounter Summary ---
Author Organization [facility] Address [address] [place] [address] Care Team Providers Care Cylinder Inspector Name Role Phone Yakov Holm MD Primary Care Provider [phone] Chiqui Pena DO Unavailable [phone] Yakov Holm MD Unavailable [phone] Encounter Details Date Type Department Care Team (Late st Contact Info) Description 11/14/2023 Scanned Document [facility] [address] [facility] [address] [place] [phone] Clau Zavala APRN [address] [facility] [address] [place] [address] Social History Tobacco Use Types Packs/Day Years [...] on filedocumented in this encounter Care Teams Cylinder Inspector Relationship Specialty Start Date End Date Yakov Holm MD [address] [place] [address] PCP - General Internal Medicine 06/01/23 Yakov Holm MD [address] [place] [address] PCP - [place] [employer] Commercial Attributed 06/22/23 11/21/23 Chiqui Pena DO [address] [place] [address] Obstetrics and Gynecology 09/05/23 documented as of this encounter
--- OUTSIDE RECORDS SUMMARY | 2025-03-23 17:51 | XMS_ITS | Encounter Summary ---
Author Organization [facility] Address [address] [place] [address] Care Team Providers Care Offset Printing Pressmen Name Role Phone Yakov Holm MD Primary Care Provider [phone] Chiqui Pena DO Unavailable [phone] Yakov Holm MD Unavailable [phone] Encounter Details Date Type Department Care Team (Late st Contact Info) Description 08/23/2023 Scanned Document [facility] EMERGENCY MED SCAN Emergency Medicine, Scan [...] on filedocumented in this encounter Care Teams Offset Printing Pressmen Relationship Specialty Start Date End Date Yakov Holm MD [address] [place] [address] PCP - General Internal Medicine 06/01/23 Yakov Holm MD [address] [place] [address] PCP - [employer] Attributed 06/22/23 11/21/23 Chiqui Pena DO [address] [place] [address] Obstetrics and Gynecology 09/05/23 documented as of this encounter
--- OUTSIDE RECORDS SUMMARY | 2025-03-23 17:51 | XMS_ITS | Clinical Summary ---
Author Organization [facility] Address [address] [place] [address] Care Team Providers Care Broth Mixer Name Role Phone Yakov Holm MD Primary Care Provider [phone] Chiqui Pena DO Unavailable [phone] Allergies Active Allergy Reactions Criticality Noted Date Comments Sulfamethoxazole-Trimethoprim Rash/Dermatitis Low 0 01/20/2025 Medications folic acid (FOLVITE) 1 MG tablet 11/02/19 23 Active Botox 100 units Recon Soln injection Every 5 months 01/13/20 23 Active hydrocortisone (ANUSOL-HC) 2.5 % rectal creamIndications :Hemorrhoids, unspecified hemorrhoid type Insert into the rectum 3 (three) times a day as needed for hemorrhoids. 28 g 02/29/20 24 Active methoTREXate 25 MG/ML injection 06/28/19 25 Active hydroxychloroqui ne (PLAQUENIL) 200 MG tablet 06/27/19 25 Active fluticasone (FloNASE) 50 mcg/spray nasal sprayIndications :Non-seasonal allergic rhinitis due to pollen 2 sprays into each nostril daily. 1 each 11 07/05/19 25 Active albuterol (PROVENTIL HFA; VENTOLIN HFA) 108 (90 Base) MCG/ACT inhalerIndicatio ns:SOB (shortness of breath) Inhale 2 puffs 4 times daily (every 6 hours) as needed for wheezing. 1 each 3 10/15/19 25 Active adalimumab (HUMIRA) 40 mg/0.8 mL [...] EVERY DAY 90 tablet 12/25/19 25 Active ferrous gluconate (FERGON) 324 MG tabletIndication s:Restless leg syndrome,Iron deficiency Take 1 tablet (324 mg total) by mouth every morning with breakfast. Take 2 hours before or 4 hours after acid reducers. 30 tablet 3 03/04/20 25 Active pregabalin (LYRICA) 25 MG capsuleIndicatio ns:Restless leg syndrome Take 1 capsule (25 mg total) by mouth daily. Take 1 capsule by mouth 2 hours before bedtime. 90 capsule 1 03/04/20 25 Active rOPINIRole (REQUIP) 4 MG tabletIndication s:Restless leg syndrome TAKE ONE TABLET BY MOUTH EVERY DAY AT NIGHT. PATIENT NEEDS TO BE SEEN IN THE OFFICE FOR ADDITIONAL REFILLS 30 tablet 03/13/20 25 Active rOPINIRole (REQUIP) 4 MG tabletIndication s:Restless leg syndrome TAKE ONE TABLET BY MOUTH EVERY NIGHT. PATIENT NEEDS TO BE SEEN IN THE OFFICE FOR ADDITIONAL REFILLS 30 tablet 02/16/20 25 025 Discontinued Active Problems Problem Noted Date Diagnosed Date [...] dictated by speech recognition. Minor errors in maintenance apprentice may be present Assessment & Plan (01/11/2024 [...] dictated by speech recognition. Minor errors in maintenance apprentice may be present Severe obesity 01/10/2024 Postoperative [...] Encounters Date Type Department Care Team Description 03/04/2025 1:40 PM EST Office Visit [facility] [address] [place] [address] Carrie Medina PA-C Restless leg syndrome (Primary Dx); Iron deficiency 02/10/2025 Scanned Document [facility] [address] [place] [phone] Neurology, Scan 01/20/2025 3:50 PM EDT Office Visit [facility] [address] [phone] Abbie Bella APRN Restless leg syndrome (Primary Dx); Iron deficiency; Vitamin D deficiency 12/23/2024 Scanned Document [facility] UROLOGY SCAN Urology, Scan from Last 3 Months Immunizations Immunization Administration Dates Next Due Influenza, Quadrivalent (FLU CELVAX) MDCK, Preservative Free IM 01/05/2023 Tdap 01/05/2023 Family History Medical History Relation Name Comments Alcohol abuse Brother Sanjeev Diabetes Brother Sanjeev Hypertension Brother Sanjeev Alcohol abuse Father Qasim Diabetes Father Qasim Heart attack Father Aqsim Hypertension Father Qasim Colon polyps Mother Chiqui Diabetes Mother Chiqui Hypertension Mother Chiqui Relation Name Status Comments Brother Sanjeev Father Qsaim Mother Chiqui Social History Tobacco Use Types Packs/Day Years Used Date Smoking Tobacco: Former Cigarettes 0 04/23/1975 - 04/23/1985 Smokeless Tobacco: Never Tobacco Cessation:Counseling Given: Not Answered Alcohol Use Standard Drinks/Week Comments Yes 2 (1 standard drink = 0.6 oz pur e alcohol) 1-2 times weekly 1-2 glasses [facility] Utilities Answer Date Recorded In the past 12 months has [employer] ([employer]), gas, oil, or water company threatened to shut off services in your home? No 10/03/2024 Social Connection and Isolation Panel Answer Date Recorded In a typical week, how many times do you talk on the phone with family, friends, or neighbors? Once a week 10/03/2024 Frequency of Social Gatherings with Friends and Family Not on file 10/03/2024 Attends [employer] Services Not on file 10/03 Active Member [...] PHQ-2 Answer Date Recorded PHQ-2 Total Score 2 03/04/2025 Hunger Vital Sign Answer Date Recorded Within [...] any time in the past 12 m [facility], were you homeless or living in a chcf (including now)? No 10/03/2024 Education Answer Date Recorded What is the highest level of school you have completed or the highest degree you have received? 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, DANY) 10/03/2024 Comments No Sex and Gender Information Value Date Recorded Sex Assigned at Female 11/01/2022 11:18 AM EDT Legal Sex Female 11:20 AM EDT Gender Identity Female 11/01/2022 11:18 AM EDT Sexual Orientation Heterosexual (straight) 11/01 11:18 AM EDT Last Filed Vital Signs Vital Sign Reading Time Taken Comments Blood Pressure 123/72 03/04/2025 1:34 PM EST Pulse 77 03/04/2025 1:34 PM EST Temperature 36.6 C (97.9 F) 12/01/2024 3:35 PM EDT Respiratory Rate 20 12/01/2024 3:35 PM EDT Oxygen Saturation 98% 01/20/2025 3:41 PM EDT Inhaled Oxygen Concentration - - Weight 88 kg (194 lb) 01/20/2025 3:41 PM EDT Height 152.4 cm (5') 01/20/2025 3:41 PM EDT Body Mass Index 37.89 01/20/2025 3:41 PM EDT Plan of Treatment Health Maintenance Due Date Last Done Comments Advance Care Planning 1960 Hepatitis C Virus Screening 1958 Quantiferon Gold TB 1968 Pneumococcal Vaccines 50+ (1 of 2 - PCV) 1977 Zoster (Shingles) Vaccine (1 of 2) 1977 RSV Vaccine 50 years and older and Patients (1 - Risk 50-74 years 1-dose series) 2008 Physical 09/04/2024 09/05/2023 Influenza Vaccine 11/21/2024 01/05/2023 [...] Procedure Name Priority Date/Time Associated Diagnosis Comments IRON, TIBC, AND FERRITIN PANEL Routine 01/28/2025 2:39 PM EDT Restless leg syndrome Iron deficiency VITAMIN D, 25-HYDROXY Routine 01/28/2025 2:39 PM EDT Restless leg syndrome Vitamin D deficiency METHYLMALONIC ACID, SERUM Routine 01/28/2025 2:39 PM EDT Restless leg syndrome HOMOCYSTEINE, TOTAL, SERUM Routine 01/28/2025 2:39 PM EDT Restless leg syndrome PREALBUMIN Routine 01/28/2025 2:39 PM EDT Restless leg syndrome VITAMIN B2, PLASMA Routine 01/28/2025 2: 39 PM EDT Restless leg syndrome VITAMIN B6 Routine 01/28/2025 2:39 PM EDT Restless leg syndrome VITAMIN B1, WHOLE BLOOD Routine 01/28/2025 2:39 PM EDT Restless leg syndrome VITAMIN B12 AND FOLATE Routine 01/28/2025 2:39 PM EDT Restless leg syndrome IMAGING BREAST/BX/MAMMO Routine 09/17/2024 2:41 PM EDT DEXA BONE DENSITY HIP/PELVIS/SPINE W/FX EVAL Routine 07/06/2023 Age-related osteoporosis without current pathological fracture from Last 3 Months or Most Recently Relevant to Health Maintenance Results * (ABNORMAL) Iron, TIBC, and Ferritin Panel (01/28/2025 2:39 PM EDT) Iron 139 45 - 160 mcg/dL [facility] Total Iron Binding Capacity 294 250 - 450 mcg/dL (calc) [facility] Iron Saturation 47(H) 16 - 45 % (calc) [facility] Ferritin 63 16 - 288 ng/mL [facility] Blood Blood specimen / Unknown 01/28/2025 2:39 PM EDT 01/28/2025 2:40 PM EDT [facility] - 02/07/2025 7:16 PM EDT FASTING:NO FASTING: NO Abbie Bella [facility] LAB BLOOD ORDERABLES Final Res ult Performing Organization Address [facility] Co de Phone Number Issuu [address] [place] [phone] * Vitamin B12 and Folate (01/28/2025 2:39 PM EDT) Pathologist [facility] Vitamin B12 239 200 - 1,100 pg/mL [facility] Comment: Please Note: Although the reference range for vitamin B12 is 200-1100 pg/mL, it has been reported that between 5 and 10% of patients with values between 200 and 400 pg/mL may experience neuropsychiatric and hematologic abnormalities due to occult B12 deficiency; less than 1% of patients with values above 400 pg/mL will have symptoms. Folate, Serum >24.0 ng/mL [facility] Comment: Reference Range Low: <3.4 Borderline: 3.4-5.4 Normal: >5.4 Blood Blood specimen / Unknown 01/28/2025 2:39 PM EDT 01/28/2025 2:40 PM EDT [facility] - 02/07/2025 7:16 PM EDT FASTING:NO FASTING: NO Abbiemarlen Bella [facility] LAB BLOOD ORDERABLES Final Res ult Performing Organization Address [facility] Co de Phone Number [employer]uu [address] [place] [address] * (ABNORMAL) Methylmalonic Acid, Serum (01/28/2025 2:39 PM EDT) Pathologist [facility] Methylmalonic Acid 434(H) 69 - 390 nmol/L [facility]/Siddhartha JONES Comment: Serum methylmalonic acid (MMA) levels are used to diagnose and monitor several rare inborn errors of metabolism, including methylmalonic aciduria. The enzymatic conversion of MMA to succinic acid requires vitamin B12 (adenosyl-cobalamin) as a cofactor. Serum MMA levels are also used for assessing functional vitamin B12 deficiency. Vitamin B12 is essential for neurodevelopment, particularly early in . Undiagnosed maternal vitamin B12 deficiency may be associated with adverse / outcomes, such as neural tube defects and intrauterine growth restriction. [facility] utilized Multi-Modal Decomposition (MMD) analysis to establish first and second trimester- specific MMA reference intervals in , as given below: MMA, First trimester (<13 wks gestation): 58-167 nmol/L MMA, Second trimester (13-23 wks gestation): 63-241 nmol/L This test was developed and its analytical performance characteristics have been determined by [facility]. It has not been cleared or approved by the FDA. This assay has been validated pursuant to the CLIA regulations and is used for clinical purposes. Blood Blood specimen / Unknown 01/28/2025 2:39 PM EDT 01/28/2025 2:40 PM EDT Ye [facility] - 02/07/2025 7:16 PM EDT FASTING:NO FASTING: NO us Abbie Bella APRN LAB BLOOD ORDERABLES Final Res ult [facility] [address] [place] [address] * Vitamin B1, Whole Blood (01/28/2025 2:39 PM EDT) Pathologist [facility] Vitamin B1, Whole Blood 150 78 - 185 nmol/L [facility]/Siddhartha olivarez [facility] Comment: Vitamin supplementation within 24 hours prior to blood draw may affect the accuracy of the results. This test was developed and its analytical performance characteristics have been determined by [facility] [place], [place]. It has not been cleared or approved by the U.S. Food and Drug Administration. This assay has been validated pursuant to the CLIA regulations and is used for clinical purposes. Blood Blood specimen / Unknown 01/28/2025 2:39 PM EDT 01/28/2025 2:40 PM EDT Narrative [facility] - 02/07/2025 7:16 PM EDT FASTING:NO FASTING: NO Abbie Bella TO[employer] LAB BLOOD ORDERABLES Final Res ult Performing Organization Address [facility]/ZIP Co de Phone Number [facility] [address] [place] * Vitamin B2, Plasma (01/28/2025 2:39 PM EDT) Vitamin B2 9.6 6.2 - 39.0 nmol/L [facility] Comment: Vitamin supplementation within 24 hours prior to blood draw may affect the accuracy of results. This test was developed and its analytical performance characteristics have been determined by [facility] [place], [place]. It has not been cleared or approved by the FDA. This assay has been validated pursuant to the CLIA regulations and is used for clinical purposes. Blood Blood specimen / Unknown 01/28/2025 2:39 PM EDT 01/28/2025 2:40 PM EDT Narrative [facility] - 02/07/2025 7:16 PM EDT FASTING:NO FASTING: NO Abbie Bella TOE SEWER LAB BLOOD ORDERABLES Final Res ult Performing Organization Address [facility] de Phone Number [email or web address] [address] [place] * (ABNORMAL) Vitamin D, 25-Hydroxy (01/28/2025 2:39 PM EDT) Vitamin D,25-Oh,Total, IA 27(L) 30 - 100 ng/mL [facility] Comment: Vitamin D Status 25-OH Vitamin D: Deficiency: <20 ng/mL Insufficiency: 20 - 29 ng/mL Optimal: > or = 30 ng/mL For 25-OH Vitamin D testing on patients on D2-supplementation and patients for whom quantitation of D2 and D3 fractions is required, the [facility](TM) 25-OH VIT D, (D2,D3), LC/MS/MS is recommended: order code [id number] (patients >2yrs). See Note 1 Note 1 For additional information, please refer to http://education.VideoAvatars/faq/YJM425 (This link is being provided for informational/ educational purposes only.) Blood Blood specimen / Unknown 01/28/2025 2:39 PM EDT 01/28/2025 2:40 PM EDT Narrative [facility] - 02/07/2025 7:16 PM EDT FASTING:NO FASTING: NO Abbie Bella TOE SEWER LAB BLOOD ORDERABLES Final Res ult Performing Organization Address [facility] de Phone Number [employer] [address] [place] [phone] * Vitamin B6 (01/28/2025 2:39 PM EDT) Pathologist [facility] Vitamin B6 7.7 2.1 - 21.7 ng/mL [facility]/Siddhartha olivarez [facility] Comment: Vitamin supplementation within 24 hours prior to blood draw may affect the accuracy of the results. This test was developed and its analytical performance characteristics have been determined by [facility] [place], [place]. It has not been cleared or approved by the U.S. Food and Drug Administration. This assay has been validated pursuant to the CLIA regulations and is used for clinical purposes. Blood Blood specimen / Unknown 01/28/2025 2:39 PM EDT 01/28/2025 2:40 PM EDT Narrative [facility] - 02/07/2025 7:16 PM EDT FASTING:NO FASTING: NO Abbie Bella APRN LAB BLOOD ORDERABLES Final Res ult Performing Organization Address [facility] de Phone Number [employer]/Psychiatric [address] [place] [address] * Prealbumin (01/28/2025 2:39 PM EDT) [facility] Prealbumin 32 17 - 34 mg/dL [facility] Blood Blood specimen / Unknown 01/28/2025 2:39 PM EDT 01/28/2025 2:40 PM EDT Narrative [facility] - 02/07/2025 7:16 PM EDT FASTING:NO FASTING: NO Abbie Bella TOE SEWER LAB BLOOD ORDERABLES Final Res ult Performing Organization Address [facility] de Phone Number [employer] [address] [place] [phone] * (ABNORMAL) Homocysteine, Total, Serum (01/28/2025 2:39 PM EDT) Homocysteine 20.8(H) < or = 13.4 umol/L [facility] Comment: Homocysteine is increased by functional deficiency of folate or vitamin B12. Testing for methylmalonic acid differentiates between these deficiencies. Other causes of increased homocysteine include renal failure, folate antagonists such as methotrexate and phenytoin, and exposure to nitrous oxide. John Yates et al., Radha [employer] Med. 1999;131(5):331-9. Blood Blood specimen / Unknown 01/28/2025 2:39 PM EDT 01/28/2025 2:40 PM EDT Narrative [facility] - 02/07/2025 7:16 PM EDT FASTING:NO FASTING: NO Abbie Shayne SANDOVALN LAB BLOOD ORDERABLES Final Res ult Performing Organization Address [facility] de Phone Number [employer] [address] [place] [phone] * Imaging Breast/Bx/Mammo Result (09/17/2024 2:41 PM EDT) Anatomical Region Laterality Modality Other us Scan Radiology IMG LEGACY PROCEDURES Final Resu lt * DEXA Bone density-Hip/pelvis/spine w/fx eval (07/06/2023) Anatomical Region Laterality Modality Digital Radiogra phy 07/06/2023 Yakov Holm MD [facility] DXA ORDERABLES Final Resul t from Last 3 Months or Most Recently Relevant to Health Maintenance Insurance MEDICARE PART A & B [facility] OUT OF [facility] MEDICARE PART A & B [facility] OUT [facility] MEDICARE PART A & B [facility] MEDICARE PART A & B Advance Directives * Full Code (Latest Code Status on File) Date Activated Date Inactivated Comments 04/19/2023 12:52 PM Care Teams Broth Mixer Relationship Specialty Start Date End Date Yakov Holm MD [address] [place] [address] PCP - General Internal Medicine 06/01/23 Chiqui Pena DO [address] [place] [address] Obstetrics and Gynecology 09/05/23
--- OUTSIDE RECORDS SUMMARY | 2025-03-23 17:51 | XMS_ITS | Encounter Summary ---
Author Organization [facility] Address [address] [place] [address] Care Team Providers Care All Terrain Vehicle Technician Name Role Phone Yakov Holm MD Primary Care Provider [phone] Chiqui Pena DO Unavailable [phone] Encounter Details Date Type Department Care Team (Late st Contact Info) Description 2023 Scanned Document [address] [phone] Yakov Holm MD [address] [place] [address] Social History Tobacco Use Types Packs/Day Years [...] on filedocumented in this encounter Care Teams All Terrain Vehicle Technician Relationship Specialty Start Date End Date Yakov Holm MD [address] [place] [address] PCP - General Internal Medicine 06/01/23 Chiqui Pena DO [address] [place] [address] Obstetrics and Gynecology 09/05/23 documented as of this encounter
--- OUTSIDE RECORDS SUMMARY | 2025-03-23 17:51 | XMS_ITS | Encounter Summary ---
Author Organization [facility] Address [address] [place] [address] Care Team Providers Care Charter Coach Driver Name Role Phone Yakov Holm MD Primary Care Provider [phone] Encounter Details Date Type Department Care Team (Late st Contact Info) Description 11/14/2024 Lab Requisition [facility] [address] [facility] [place] [phone] Ronal Herrera MD [address] [facility] [address] [place], [place] [phone] Urinary tract infection, site not specified Social [...] Klebsiella aerogenes(A) RADHA 11/15/2024 7:47 AM EDT [facility] Comment: This is an [...] MICROBIOLOGY - G ENERAL ORDERABLES Final Result [facility] [address] [place] [address], documented in this encounter Visit Diagnoses Diagnosis Urinary tract infection, site not specified documented in this encounter Care Teams Charter Coach Driver Relationship Specialty Start Date End Date Yakov Holm MD [address] [place] [address] PCP - General Internal Medicine 11/17/24 documented as of this encounter
--- OUTSIDE RECORDS SUMMARY | 2025-03-23 17:51 | XMS_ITS | Encounter Summary ---
Author Organization [facility] Address [address] [place] [address] Care Team Providers Care Electric Lift Truck Driver Name Role Phone Yakov Holm MD Primary Care Provider Chiqui Pena DO Unavailable [phone] Encounter Details Date Type Department Care Team (Late st Contact Info) Description 11/04/2024 Scanned Document [facility] [address] [place] [address] Urology, Scan Social History Tobacco Use Types Packs/Day Years Used Date Smoking Tobacco: Former Cigarettes 0 04/23/1975 - 04/23/1985 Smokeless Tobacco: Never Alcohol Use Standard Drinks/Week Comments Yes 2 (1 standard drink = 0.6 oz pur e alcohol) 1-2 times weekly 1-2 glasses [facility] Utilities Answer Date Recorded In the [...] and Family Not on file 10/03/2024 Attends [employer] Not on file 10/03 Active Member [...] any time in the past 12 m [facility], were you homeless or living in a penitentiary (including now)? No 10/03/2024 Education Answer Date Recorded What is the highest level of school you have completed or the highest degree you have received? Master's degree (e.g., MA, MS, Gilmer, MEd, GATE KEEPER, DANY) 10/03/2024 Comments No Sex and Gender [...] on filedocumented in this encounter Care Teams Electric Lift Truck Driver Relationship Specialty [place] [address] [place] [address] PCP - General Internal Medicine 06/01/23 Chiqui Pena DO [address] [place] [address] Obstetrics and Gynecology 09/05/23 documented as of this encounter
--- OUTSIDE RECORDS SUMMARY | 2025-03-23 17:51 | XMS_ITS | Data Portability ---
Author Organization [facility], [facility] Address [address] [place] [address] Care Team Providers Care Hoisting Pile Driving Engineer Name Role Phone SOHAIL MAY Primary Care Provider Assessment No assessment recorded. Plan of Treatment [...] observ ation record ed. [facility] [address], [address], 12/05/2024 15:47:45 Result Notes None recorded. Problems Name Problem SNOMED Code Status Onset Date Resolution Date Notes Provider Name and Address Organization Details Recorded Time Increased frequency of urination 821515444 Active 2024 FLOR mcknight [employer] 5 08:17:14 Urge incontinence of urine 96724997 Active 2024 FLOR mcknight [facility] 5 08:29:05 Urgent desire to urinate 46360991 Active 2024 Jey Lindsay MD [address] [place], [address], [place] [employer] 16:24:56 Problem Notes None recorded. Procedures Surgical History Date Name Laterality Status Provider Name and Address Organization Details Recorded Time 12/04/2024 [facility] completed Jey Lindsay MD [address] [place], [address], [employer] 12/04/2024 16:31:37 Imaging Results None recorded. Procedure Notes None recorded. Medical Equipment None Reported. Allergies Allergen ID Allergen Name Allergen Category Reaction Reaction Severity Criticality Documentation Date Start Date Code Code System Note Provider Name and Address Organization Details Recorded Time 818178 Bactrim medicatio n rash Not available Not available 11/27/2024 08316 9 RxNorm Mary Ann Lerner roxanna, [employer] 13:37:46 Vitals None Recorded Social History [...] ICD10 Code Diagnosis IMO Codes Diagnosis Note [id number] Jey Lindsay MD [facility] [address] [place] [address] 12/03/2024 09:20:57 12/03/2024 09:46:31 Urge incontinence of urine 38802989 N39.41 411080 - - Pt has tried and failed [...] on and will be scheduled for OR. [id number] Jey Lindsay MD [facility] [address] [place] [address] [address] [place] [address] 12/04/2024 08:30:59 12/04/2024 15:31:40 Urgent desire to urinate 09672046 R39.15 [id number] Health Concerns Section Related Observation LastModified by Organization Detai ls LastModified Time None Recorded Concern Status LastModified by Organization Details LastModified Time None Recorded Advance Directives Directive None Recorded Payers Insurance Date Sequence Insurance Name Policy Number Policy Roberts Covered Member ID Roberts Member ID Guarantor Name 12/09/2024 1 [place] Gertrude Fitzpatrick [id number] Gertrude Fitzpatrick 12/09/2024 2 [place] [id number] Gertrude Fitzpatrick [id number] Gertrude Fitzpatrick Notes Date Note Type [...] complete bladder work-up at [facility]. Her UDS demonstrated no leak with cough, [...] 4 voids. Jey Lindsay MD [address] [place], [address], [place] [facility] 12/04/2024 09:30:19 OBGyn Episode No OBEpisode recorded.
--- OUTSIDE RECORDS SUMMARY | 2025-03-23 17:51 | XMS_ITS | Encounter Summary ---
Author Organization [facility] Address [address] [place] [address] Care Team Providers Care Machine Puller Over Name Role Phone Yakov Holm MD Primary Care Provider [phone] Chiqui Pena DO Unavailable [phone] Yakov Holm MD Unavailable [phone] Encounter Details Date Type Department Care Team (Late st Contact Info) Description 06/21/2023 Scanned Document [facility] VASCULAR SURG SCAN Vascular Surgery, Scan Social [...] on filedocumented in this encounter Care Teams Machine Puller Over Relationship Specialty Start Date End Date Yakov Holm MD [address] [place] [address] PCP - General Internal Medicine 06/01/23 Yakov Holm MD [address] [place] [address] PCP - [place] [employer] Attributed 06/22/23 11/21/23 Chiqui Pena DO [address] [place] [id number] Obstetrics and Gynecology 09/05/23 documented as of this encounter
--- OUTSIDE RECORDS SUMMARY | 2025-03-23 17:51 | XMS_ITS | Encounter Summary ---
Author Organization [facility] Address [address] [place] [address] Care Team Providers Care Inspector Fuel Hose Name Role Phone Yakov Holm MD Primary Care Provider Chiqui Pena DO Unavailable [phone] Encounter Details Date Type Department Care Team (Late st Contact Info) Description 05/19/2024 Scanned Document [facility] UROLOGY SCAN Urology, Scan Social History Tobacco [...] on filedocumented in this encounter Care Teams Inspector Fuel Hose Relationship Specialty Start Date End Date Yakov Holm MD [address] [place] [address] PCP - General Internal Medicine 06/01/23 Chiqui Pena DO [address] [place] [address] Obstetrics and Gynecology 09/05/23 documented as of this encounter
[2025-03-23 19:02] LABS: Baso%MD 0.5 %; Eos%MD 1.2 %; Hematocrit 41.0 % (37.0-47.0); Hemoglobin 13.5 g/dl (12.0-16.0); IG%MD 0.3 %; Lymph%MD 28.0 %; Mean Corpuscular HGB Conc 32.9 g/dl (31.0-35.0); Mean Corpuscular Hemoglobin 31.6 pg (27.0-33.0); Mean Corpuscular Volume 96.0 fL (80.0-98.0); Mono%MD 5.7 %; NRBC Abs Auto 0.000 X10*3/uL (0.0-0.012); NRBC Pct Auto 0.0 /100WBC (0.0-0.2); Neut%MD 64.3 %; Platelet Count 173 X10*3/uL (160-400); Red Blood Count 4.27 X10*6/uL (4.20-5.50); White Blood Count 5.8 X10*3/uL (4.8-10.8)
[2025-03-23 20:01] LABS: Alanine Aminotransferase 13 U/L (0-31); Aspartate Amino Transferase 24 U/L (5-31); Estimated Glomerular Filt Rate > 60
[2025-03-23 20:43] LABS: Atypical Lymph Absolute Manual 0.1 x10*3/uL; Atypical Lymphs Percent Manual 1 % (0-6); Band Neutrophils Percent 0 % (3-5); Lymphocytes Absolute Manual 1.6 X10*3/uL (1.2-4.9); Lymphocytes Percent Manual 27 % (20-40); Monocytes Absolute Manual 0.2 X10*3/uL (0.1-1.2); Monocytes Percent Manual 3 % (2-11); Neutrophils Absolute Manual 4.0 X10*3/uL (2.0-8.3); Neutrophils Percent Manual 69 % (45-73)
[2025-03-23 20:44] LABS: Burr Cells 1+ (0-2) /OIF; RBC Morphology NOTED
== END 2025-03-23 14:33 | disposition home or self-care (01) ==
LOC: HO.HKASLDS 14:32
PROVIDERS: Visit Provider Internal Medicine Rheumatology
DX: M06.09 Rheumatoid arthritis without rheumatoid factor, multiple sites (principal); R74.01 Elevation of levels of liver transaminase levels; Z79.899 Other long term (current) drug therapy
CPT/HCPCS: 36415; 82565; 84450; 84460; 85007; 85027; 85652; 86140